=== PATIENT | female | born 2000 | race Caucasian/White ===

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

== ENCOUNTER 2023-04-06 18:05 | Emergency (ER) | payer BC, SELFPAY ==
--- NOTE | 2023-04-06 18:06 | ED.URI ---
HPI - URI/Sore Throat General Chief Complaint: Upper Respiratory Infection Stated Complaint: Bilateral Ear Irritation,Sore Throat,Headache Time Seen by Provider: 04/06/23 18:06 Source: patient Mode of arrival: ambulatory Limitations: no limitations History of Present Illness HPI Narrative: Rafaela is a 22-year-old female patient presenting to the clinic today with complaints of bilateral ear pain, sore throat, and headache x3 days. She reports no known fever or chills but she has had some body aches. No known exposure to anyone with COVID, flu, or strep. She has recently got back from traveling to [place] with her family. MD elicited complaint: sore throat and other (Ear pain, headache) Related Data Home Medications Medication Instructions Recorded Confirmed levonorgestrel 21 mcg/24 hours (8 See Rx Instructions .Route .COMPLEX 09/03/21 04/06/23 yrs) 52 mg intrauterine device (Mirena) duloxetine 60 mg capsule,delayed 60 mg PO DAILY 04/06/23 04/06/23 release hydroxyzine HCl 50 mg tablet 50 mg PO PRN PRN Anxiety 04/06/23 04/06/23 Allergies Allergy/AdvReac Type Severity Reaction Status Date / Time No Known Drug Allergies Allergy Unknown Other Verified 04/06/23 18:06 Review of Systems Review of Systems: Pertinent positives per HPI. Patient denies any fever, chills, rash, headache, visual changes, dizziness, cough, shortness of breath, chest pain, palpitations, nausea, vomiting, diarrhea, constipation, abdominal pain, or any urinary issues. [facility] Past Medical History Medical History Autoimmune disease Patient denies significant medical history Social History Social History Smoking status: Former smoker Gender identity (if verbalized by the patient): Female Comments At the time of my signature, I reviewed and agree with the nursing past medical, surgical, social, and family history. There is no relevant family history pertinent to the patient complaint. Exam Narrative: General: Well-developed, well nourished, in no apparent distress Head: Normocephalic, atraumatic Eyes: Pupils equally round and reactive to light bilaterally, EOM intact, sclera and conjunctive clear, no discharge, lids normal Ears: TMs intact and congested mild bulging, ear canals clear, no drainage, grossly hearing normal. Nose: Nares patent, clear nasal discharge, moderate inflammation, no sinus tenderness. Mouth: Oral pharynx mildly red without lesions or masses, good dentition, MMM. PND Neck: Supple, trachea midline, no enlargement of anterior or posterior cervical nodes, no thyroid masses or goiter palpable. Cardio: Regular rate and rhythm, s1 and s2 normal, no murmur appreciated. Resp: Clear to auscultation bilaterally, no rhonchi, rales, wheezing or rubs Course Course Emergency Course: Portions of this record may have been created with voice recognition software. Level of Care: Express Care Visit Vital Signs Vital signs: Vital signs reviewed MDM - URI/Sore Throat MDM Narrative Medical decision making narrative: At the time of visit patient is resting comfortably on the exam table. Strep, COVID, influenza testing was performed and all negative in the clinic today. I suspect patient has URI/pharyngitis/postnasal drip/eustachian tube dysfunction. Will send in prescription for some prednisone. Supportive measures were discussed with the patient she voiced understanding discharge instructions agrees to treatment plan. Differential Diagnosis Differential diagnosis: Likely upper respiratory infection, otitis media, sinusitis, viral infection, bronchitis, influenza, pharyngitis and other (COVID) Discharge Plan Discharge Clinical Impression: Post-nasal drip, Acute dysfunction of both eustachian tubes Upper respiratory infection Qualifiers: URI type: unspecified URI Qualified Code(s): J0
[2023-04-06 18:12] VITALS: BP 127/71; PULSE 86; RESP 16; TEMP 36.7; O2SAT 100
== END 2023-04-06 18:35 | disposition home or self-care (01) ==
PROVIDERS: Emergency Provider Nurse Practitioner Family; PCP Nurse Practitioner Family
DX: R09.82 Postnasal drip (principal); H69.93 Unspecified Eustachian tube disorder, bilateral; J06.9 Acute upper respiratory infection, unspecified; J02.9 Acute pharyngitis, unspecified; Z20.822 Contact with and (suspected) exposure to COVID-19; M35.9 Systemic involvement of connective tissue, unspecified; Z87.891 Personal history of nicotine dependence
CPT/HCPCS: 87081; 87426; 87804; 87880; 99213; C9803; G0463

== ENCOUNTER 2023-05-23 15:07 | Emergency (ER) | payer BC, SELFPAY ==
[2023-05-23 15:13] VITALS: BP 115/78; PULSE 102; RESP 20; TEMP 36.6; O2SAT 100
--- NOTE | 2023-05-23 15:20 | ED.URI ---
HPI - URI/Sore Throat General Chief Complaint: Upper Respiratory Infection Stated Complaint: SORE THROAT/DRAINAGE/COUGH Time Seen by Provider: 05/23/23 15:24 Source: patient, RN notes reviewed and old records reviewed Mode of arrival: ambulatory Limitations: no limitations History of Present Illness HPI Narrative: 22 year old female who presents to [facility] care with complaints of sore throat, nasal congestion and drainage, and cough at night for the past 3 days. Patient reports that throat is sore especially in the mornings from her sinus drainage. Patient reports that her lower back hurts today. She states that she checked herself for COVID yesterday and it was negative then found out it was an test. Patient reports that she has positive SUNNY that she sees Detailer for and they are concerned of possible autoimmune disorder. Patient reports that she has not had any fevers. MD elicited complaint: cough, sore throat, rhinorrhea and nasal congestion Pertinent past history: other (SUNNY positive being checked for autoimmune disease) Onset (ago): day(s) (3) Able to tolerate fluids by mouth: Yes Treatments prior to arrival: other (DayQuil and NyQuil) Related Data Home Medications Medication Instructions Recorded Confirmed levonorgestrel 21 mcg/24 hours (8 See Rx Instructions .Route .COMPLEX 09/03/21 05/23/23 yrs) 52 mg intrauterine device (Mirena) duloxetine 60 mg capsule,delayed 60 mg PO DAILY 04/06/23 05/23/23 release hydroxyzine HCl 50 mg tablet 50 mg PO PRN PRN Anxiety 04/06/23 05/23/23 Allergies Allergy/AdvReac Type Severity Reaction Status Date / Time No Known Drug Allergies Allergy Unknown Other Verified 05/23/23 15:15 Review of Systems Review of Systems: CONSTITUTIONAL: Reports malaise, no chills, sweats, or fever. EYES: Denies visual changes, redness, or discharge. ENT: Reports rhinorrhea, congestion, sinus pain,no otalgia positive for sore throat. CARDIOVASCULAR: Denies chest pain, palpitations, or edema. RESPIRATORY: Reports cough.? Denies dyspnea. GASTROINTESTINAL: Denies abdominal pain, nausea, vomiting, diarrhea SKIN: Denies rash or itching. MUSCULOSKELETAL: Reports back myalgia. NEUROLOGIC: Denies headache. All systems reviewed & are unremarkable except as noted in HPI and below PMFSH Past Medical History Medical History Autoimmune disease Positive SUNNY Patient denies significant medical history Surgical History Surgical History (Updated 05/25/23 @ 21:58 by Melody Edwards NP) History of tonsillectomy Social History Social History Smoking status: Former smoker Gender identity (if verbalized by the patient): Female Comments At time of signature, agree with nursing past medical, surgical, social and family history. There is no relevant family history pertinent to the presenting complaint Exam Narrative: GENERAL: Well-appearing, well-nourished, and in no acute distress. HEAD: Normocephalic EYES: PERRLA, conjunctivae clear ENT: Nares clear, turbinates edematous and erythematous, clear discharge. Mucous membranes moist. TM pearly beltran with dull light reflex bilaterally; no tragal tenderness. Oropharynx erythematous without lesions. Tonsils not present and without exudate, no drooling, no hoarseness, no trismus, uvula midline.post nasal drainage NECK: Supple. No lymphadenopathy CHEST: Clear to auscultation, breath sounds equal. No wheezing, rhonchi, rales, or stridor. No respiratory distress, speaks in full sentences.cough SAO2 100% on room air HEART: Regular rate and rhythm. No murmur heard. SKIN: Warm, dry, no rash. NEURO: Alert and oriented x3. PSYCH: Normal mood and affect Course Course Emergency Course: Patient is aware of diagnosis, understands and agrees to treatment plan.? Anticipatory guidance given.? Patient agr
== END 2023-05-23 16:05 | disposition home or self-care (01) ==
PROVIDERS: Emergency Provider Registered Nurse; PCP Nurse Practitioner Family
DX: J06.9 Acute upper respiratory infection, unspecified (principal); Z79.899 Other long term (current) drug therapy; Z87.891 Personal history of nicotine dependence; Z20.822 Contact with and (suspected) exposure to COVID-19
CPT/HCPCS: 87426; 99213; C9803; G0463

== ENCOUNTER 2024-11-02 14:36 | Outpatient (CLI) | payer BC, SELFPAY ==
[2024-11-02 15:20] LABS: Hematocrit 37.4 % (37.0-47.0); Hemoglobin 12.7 g/dL (12.0-15.0); Mean Corpuscular Hemoglobin 29.8 pg (26-34); Mean Corpuscular Volume 87.8 fl (80-100); Mean Platelet Volume 8.9 fl (7.4-10.4); Platelet Count Result 338 k/mm3 (150-375); Red Blood Count 4.26 M/mm3 (4.2-5.4); Red Cell Distribution Width 12.2 % (11.5-14.5)
[2024-11-02 15:32] LABS: Alanine Aminotransferase 15 U/L (6-35); Albumin Level 4.6 g/dL (3.5-5.1); Alkaline Phosphatase 108 U/L (38-126); Anion Gap 11 mmol/L (4-12); Aspartate Amino Transferase 22 U/L (14-36); Bilirubin,Total 0.4 mg/dL (0.2-1.3); Blood Urea Nitrogen 12 mg/dL (7-17); Calcium 9.5 mg/dL (8.4-10.2); Carbon Dioxide 28 mmol/L (22-30); Chloride 99 mmol/L (98-107); Cholesterol 208 mg/dL (0-200); Estimated Glomerular Filt Rate > 60; Glucose 90 mg/dL (65-110); HDL Direct 39 mg/dL; Potassium 3.9 mmol/L (3.4-5.0); Sodium 138 mmol/L (137-145); Triglycerides 305 mg/dL (<150)
[2024-11-02 15:43] LABS: LDL Cholesterol Direct 104 mg/dL
[2024-11-02 15:44] LABS: Iron 109 ug/dL (37-170)
[2024-11-02 15:48] LABS: Hemoglobin A1C 5.1 % (<5.7)
[2024-11-02 15:57] LABS: Percent Iron Saturation 29 % (20-50)
[2024-11-02 16:01] LABS: Vitamin D 25 Hydroxy 19.3 ng/mL
[2024-11-02 16:38] LABS: Folic Acid 5.6 ng/mL (2.76->20)
--- OUTSIDE RECORDS SUMMARY | 2024-11-02 17:03 | XMS_ITS | Data Portability ---
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 Plan of Treatment Reminders Order Date Submit Date Provider Last Modified By Organization Details Last Modified Time Details Appointments None recorded. Lab None recorded. Referral None recorded. Procedures None recorded. Surgeries None recorded. Imaging None recorded. Medication Orders hydroxyzine HCl 50 mg tablet 2022 023 [facility]/Pharmacy #[id number], [address] [place], [address], 12:49:32 duloxetine 60 mg capsule,del ayed release 2022 023 [facility]/Pharmacy #[id number], [address] [place], [address], 12:49:30 Patient TargetsNo targets recorded. Patient Instructions Encounter Date Encounter Id Patient Instructions Last Modified By Organization Details Last Modified Time 01/14/2023 [id number] 3-4 mo fu anxiety, ptsd, depression, acne, etc. Not available 01/14/2023 12:53:29 05/06/2023 [id number] FU in 6 mo for anxiety/depressio n, acne Not available 05/06/2023 12:53:00 Reason for Referral None Reported. Results Created Date Observation Date Name Description Value Unit Range Abnormal Flag Note LastModifiedBy Organization Detail LastModifiedTime Result Notes None recorded. Problems Name Problem SNOMED Code Status Onset Date Resolution Date Notes Provider Name and Address Organization Details Recorded Time Depressive disorder 43985053 Active 2021 Not Available [facility] 3 17:44:01 Posttraumatic stress disorder 88727993 Active 2021 Not Available [facility] 3 17:44:01 Anxiety 30127285 Active 2022 Machelle Hidalgo NP [address] [facility], [facility] [address], [place], [address] , [employer] 3 12:48:46 Acne 27779904 Active 2022 Machelle Hidalgo NP [address] [facility], [address], [place], [address] , [employer] 3 12:57:16 Problem Notes None recorded. Procedures Surgical History Date Name Laterality Status Provider Name and Address Organization Details Recorded Time biopsy of lymph node completed Not Available [facility] 11/06/2022 17:43:02 EGD completed Not Available [facility] 09/2022 17:43:02 nasal cautery completed Not Available [facility] 11/06/2022 17:43:02 tonsillectomy and adenoidectomy completed Not Available [facility] 11/06/2022 17:43:02 Imaging Results None recorded. Procedure Notes None recorded. Medical Equipment None Reported. Allergies No known drug allergies Medications Name Sig Start Date Stop Date Status Note LastModified by Organization Details LastModified Time buspirone 5 mg tablet TAKE 1 TABLET BY MOUTH TWICE A DAY active Not Available Not Available No t Available azithromyci n 250 mg tablet 01/23 completed Not Available Not Available Not Available fluconazole 150 mg tablet 01/23 completed Not Available Not Available Not Available tretinoin 0.025 % topical cream APPLY TOPICALLY TO THE AFFECTED AREA EVERY DAY AT BEDTIME active Not Available Not Available No t Available sucralfate 1 gram tablet TAKE 1 TABLET BY MOUTH FOUR TIMES DAILY 12/17 completed Not Available Not Available Not Available promethazin e 12.5 mg tablet 12/17 completed Not Available Not Available Not Available sumatriptan 25 mg tablet 01/19 completed Not Available Not Available Not Available ondansetron HCl 4 mg tablet 01/19 completed Not Available Not Available Not Available prednisone 20 mg tablet TAKE 2 TABLETS BY MOUTH EVERY DAY FOR 5 DAYS 05/06 completed Not Available Not Available Not Available doxycycline hyclate 50 mg capsule Take 1 capsule every 12 hours by oral route. active Not Available Not Available No t Available clindamycin HCl 150 mg capsule 08/21 completed Not Available Not Available Not Available penicillin V potassium 500 mg tablet 12/17 completed Not Available Not Available Not Available hydroxyzine HCl 50 mg tablet TAKE 1 TABLET BY MOUTH THREE TIMES A DAY NEEDED 2022 active Not Available Not Available Not Avai lable sulfamethox azole 800 mg-trimetho prim 160 mg tablet TAKE 1 TABLET TWICE A DAY FOR 5 DAYS 12/17 completed Not Available Not Available Not Available ketorolac 10 mg tablet 01/19 completed Not Available Not Available Not Available cyproheptad ine 4 mg tablet 12/17 completed Not Available Not Available Not Available bupropion HCl 100 mg tablet Take 1 tablet every day by oral route. active Not Available Not Available No t Available dicyclomine 20 mg tablet TAKE 1 TABLET BY MOUTH THREE TIMES DAILY NEEDED FOR ABDOMINAL CRAMPS 12/17 completed Not Available Not Available Not Available phenazopyri dine 100 mg tablet 01/19 completed Not Available Not Available Not Available doxycycline monohydrate 100 mg capsule 01/23 completed Not Available Not Available Not Available erythromyci n 5 mg/gram (0.5 %) eye ointment APPLY 1/2 INCH STRIP TO THE RIGHT EYE THREE TIMES DAILY FOR 5 DAYS 12/17 completed Not Available Not Available Not Available buspirone 10 mg tablet TAKE 1 TABLET BY MOUTH TWICE A DAY active Not Available Not Available No t Available sertraline 25 mg tablet 12/17 completed Not Available Not Available Not Available mupirocin 2 % topical ointment APPLY TO AFFECTED AREA 3 TIMES A DAY 12/17 completed Not Available Not Available Not Available gabapentin 100 mg capsule 12/17 completed Not Available Not Available Not Available benzoyl peroxide 5 % topical cleanser APPLY SPARINGLY TO AFFECTED AREA EVERY DAY active Not Available Not Available No t Available naproxen 500 mg tablet 12/17 completed Not Available Not Available Not Available oxycodone 5 mg tablet 12/17 completed Not Available Not Available Not Available escitalopra m 10 mg tablet PLEASE SEE ATTACHED FOR DETAILED DIRECTION S 12/17 completed Not Available Not Available Not Available escitalopra m 20 mg tablet TAKE 1 TABLET BY MOUTH EVERY DAY active Not Available Not Available No t Available Mononessa (28) 0.25 mg-35 mcg tablet 01/19 completed Not Available Not Available Not Available nitrofurant oin monohydrate /macrocryst als 100 mg capsule TAKE 1 CAPSULE BY MOUTH EVERY 12 HOURS FOR 7 DAYS 12/17 completed Not Available Not Available Not Available duloxetine 30 mg capsule,del ayed release TAKE 1 CAPSULE BY MOUTH EVERY DAY 01/14 completed Not Available Not Available Not Available duloxetine 60 mg capsule,del ayed release TAKE 1 CAPSULE BY MOUTH EVERY DAY active Not Available Not Available No t Available ID NOW COVID-19 Test Kit TEST DIRECTED 12/17 completed Not Available Not Available Not Available Vitals Date Recorded Body mass index (BMI) Body height Oxygen saturation Oxygen saturation in Arterial blood by Pulse oximetry Heart rate Respiratory rate Body temperature Body weight Systolic blood pressure Diastolic blood pressure Provider Name and Address Organization Details Last Updated DateTime 2 24.1 kg/m2 160.02 cm 98 % 98 % 90 /min 18 /min 98.4 [degF] 43210.5 6 g 102 mm[Hg] 70 mm[Hg] Not Available [facility] 3 17:43:36 Date Recorded Body mass index (BMI) Body height Oxygen saturation Oxygen saturation in Arterial blood by Pulse oximetry Heart rate Respiratory rate Body temperature Body weight Systolic blood pressure Diastolic blood pressure Provider Name and Address Organization Details Last Updated DateTime 3 25.6 kg/m2 160.02 cm 98 % 98 % 77 /min 16 /min 99.1 [degF] 97765.4 6 g 104 mm[Hg] 62 mm[Hg] Not Available [facility] 3 17:43:36 Date Recorded Body mass index (BMI) Body height Oxygen saturation Oxygen saturation in Arterial blood by Pulse oximetry Heart rate Respiratory rate Body temperature Body weight Systolic blood pressure Diastolic blood pressure Provider Name and Address Organization Details Last Updated DateTime 3 26.6 kg/m2 160.02 cm 98 % 98 % 59 /min 16 /min 98.3 [degF] 52652.2 1 g 106 mm[Hg] 70 mm[Hg] Not Available [facility] 3 17:43:36 Date Recorded Body height Body mass index (BMI) Percentile per age and sex Body mass index (BMI) Body weight Body temperature Heart rate Respiratory rate Oxygen saturation Oxygen saturation in Arterial blood by Pulse oximetry Pain severity - 0-10 verbal numeric rating [Score] - Reported Systolic blood pressure Diastolic blood pressure Provider Name and Address Organization Details Last Updated DateTime 3 160.02 cm 83 % 26.2 kg/m2 80158.3 7 g 98.4 [degF] 84 /min 16 /min 97 % 97 % 0 108 mm[Hg] 74 mm[Hg] Machelle Greenwood RN [facility] 3 12:31:58 Date Recorded Body height Body mass index (BMI) Body mass index (BMI) Percentile per age and sex Body weight Body temperature Heart rate Respiratory rate Oxygen saturation Oxygen saturation in Arterial blood by Pulse oximetry Pain severity - 0-10 verbal numeric rating [Score] - Reported Systolic blood pressure Diastolic blood pressure Provider Name and Address Organization Details Last Updated DateTime 3 160.02 cm 26.4 kg/m2 83 % 80896.0 1 g 96.3 [degF] 80 /min 16 /min 98 % 98 % 0 130 mm[Hg] 82 mm[Hg] Machelle Greenwood RN [facility] 3 12:33:59 Social History Question Answer Notes LastModified by Organization Details LastModified Time Tobacco Smoking Status Never Smoker Not Available [facility] 11/06/2022 17:42:58 Do You Have An Advance Directive? No Information not available 01/14/2023 What Is Your Level Of Alcohol Consumption? None MIGRATION.0301 [id number] Information not available 11/06/2022 Do You Wear A Helmet When Biking? Yes MIGRATION.030 137382 Information not available 11/06/2022 Is Blood Transfusion Acceptable In An Emergency? Yes Information not available 01/14/2023 What Is Your Level Of Caffeine Consumption? Moderate [id number] Information not available 11/06/2022 What Is Your Code Status? Full Code Information not available 01/14/2023 In The 14 Days Before Symptom Onset, Have You Had Close Contact With A Laboratory-confi rmed COVID-19 While That Case Was Ill? No MIGRATION.0301 [id number] Information not available 11/06/2022 In The 14 Days Before Symptom Onset, Have You Had Close Contact With A Person Who Is Under Investigation For COVID-19 While That Person Was Ill? No MIGRATION.0301 [id number] Information not available 11/06/2022 Are You Currently Employed? Yes Information not available 01/14/2023 What Type Of Diet Are You Following? REGULAR MIGRATION.0301 [id number] Information not available 11/06/2022 Which Illicit Or Recreational Drugs Have You Used? Marijiuana MIGRATION.0301 [id number] Information not available 11/06/2022 What Is The Highest Grade Or Level Of School You Have Completed Or The Highest Degree You Have Received? [id number] MIGRATION.0301 [id number] Information not available 11/06/2022 What Is Your Occupation? [employer] Information not available 01/14/2023 Have There Been Any Changes To Your Family Or Social Situation? No MIGRATION.0301 [id number] Information not available 11/06/2022 Do You Use Insect Repellent Routinely? Yes MIGRATION.0301 [id number] Information not available 11/06/2022 Where Do You Live? [place]LevelHouse MIGRATION.0301 [id number] Information not available 11/06/2022 Do You Have A Medical Power Of Roustabout Supervisor? No Information not available 01/14/2023 Do You Have Any Pets? Yes Information not available 01/14/2023 What Is Your Relationship Status? Single MIGRATION.0301 [id number] Information not available 11/06/2022 Do You Use Your Seat Belt Or Car Seat Routinely? Yes MIGRATION.0301 [id number] Information not available 11/06/2022 Do You Have Smoke And Carbon Monoxide Detectors In Your Home? Yes Information not available 01/14/2023 Are You Passively Exposed To Smoke? No MIGRATION.0301 [id number] Information not available 11/06/2022 Are There Any Smokers In Your House? No MIGRATION.0301 260430 Information not available 11/06/2022 Do You Participate In Social Media? Yes MIGRATION.0301 438006 Information not available 11/06/2022 Do You Feel Stressed (tense, Restless, Nervous, Or Anxious, Or Unable To Sleep At Night)? QV3568-8 MIGRATION.030 045861 Information not available 11/06/2022 Do You Use Any Illicit Or Recreational Drugs? Yes MIGRATION.0301 032404 Information not available 11/06/2022 Do You Use Sunscreen Routinely? Yes MIGRATION.030 761830 Information not available 11/06/2022 Have You Recently Traveled Abroad? No MIGRATION.030 416095 Information not available 11/06/2022 Are You Currently In School? Yes [employer] Information not available 01/14/2023 Do You Have Any Dietary Restrictions? No MIGRATION.030 455408 Information not available 11/06/2022 Sex: Female Functional Status Question Answer Note LastModified by Organizat ion Details LastModified Time What is your exercise level? Moderate MIGRATION.[id number] 6 Information not available 11/06/2022 Mental Status None recorded. Family History Relationship Description Onset Age of this Age Resolved Age Notes LastModified by Organization Details LastModified Time Mother Nodule of liver MIGRATION.942 [id number] Not available 11/06/2022 17:43:03 Mother Malignant neoplasm of skin MIGRATION.801 [id number] Not available 11/06/2022 17:43:03 Father Hypothyroidi sm MIGRATION.069 [id number] Not available 11/06/2022 17:43:03 Father Gout MIGRATION.372 [id number] Not available 11/06/2022 17:43:03 Father Hyperkeratos is lenticularis perstans MIGRATION.184 [id number] Not available 11/06/2022 17:43:03 Maternal Grandmother Diabetes mellitus MIGRATION.967 [id number] Not available 11/06/2022 17:43:03 Maternal Grandmother Hypertensive disorder MIGRATION.083 [id number] Not available 11/06/2022 17:43:03 Maternal Grandmother Hyperkeratos is lenticularis perstans MIGRATION.725 [id number] Not available 11/06/2022 17:43:03 Maternal Grandfather Coronary arterioscler osis MIGRATION.979 1588186 Not available 11/06/2022 17:43:03 Maternal Grandfather Hypertensive disorder MIGRATION.179 7440215 Not available 11/06/2022 17:43:03 Maternal Grandfather Basal cell carcinoma of skin MIGRATION.636 6965792 Not available 11/06/2022 17:43:04 Paternal Grandfather Hyperkeratos is lenticularis perstans MIGRATION.437 [id number] Not available 11/06/2022 17:43:04 Paternal Grandfather Hypothyroidi sm MIGRATION.884 [id number] Not available 11/06/2022 17:43:04 Paternal Grandfather Diabetes mellitus MIGRATION.661 4571505 Not available 11/06/2022 17:43:04 Paternal Grandfather Coronary arterioscler osis MIGRATION.286 [id number] Not available 11/06/2022 17:43:04 Paternal Grandfather Malignant tumor of colon MIGRATION.099 [id number] Not available 11/06/2022 17:43:04 Paternal Grandmother Hyperthyroid ism MIGRATION.318 [id number] Not available 11/06/2022 17:43:04 Paternal Grandmother Hypothyroidi sm MIGRATION.768 [id number] Not available 11/06/2022 17:43:04 Medical History Condition Response BLINDNESS N RHEUMATIC FEVER N KIDNEY STONES N BLADDER PROBLEMS N MRSA N OTHER # 1 N POLIO N LUNG DISEASE/DISORDER N HISTORY OF DRUG ABUSE N COPD N RADIATION / CHEMOTHERAPY N Other # 2 N BLOOD DISEASES N SURGERY N EAR OR HEARING PROBLEMS N MUMPS N SHINGLES N BOWEL PROBLEMS N FEMALE PROBLEMS / INFECTIONS N DEPRESSION (INCLUDING POST ) Y STROKE/TIA N THYROID DISEASE N ULCERS N BENIGN PROSTATIC HYPERPLASIA N MEASLES N CERVICALGIA N TB SKIN TEST N HYPOTENSION N MYOCARDIAL INFARCTION N OBESITY N PARAPELGIA N GERD/NAUSEA N ANEURYSM N URINARY/BLADDER/KIDNEY PROBLEMS N CORONARY ARTERY DISEASE (CAD) N MENIERE'S DISEASE N ADDICTION CONCERNS N ENDOMETRIOSIS N USE OF BLOOD THINNERS N SKIN PROBLEMS N EMPHYSEMA N GASTROINTESTINAL DISORDER N MUSCLE,JOINT OR BONE PROBLEMS N GASTROINTESTINAL BLEEDING N BLOOD CLOTS N ASTHMA N CATARACTS N ERECTILE DYSFUNCTION N GI PROBLEMS N CHF N Low Testosterone N NEUROPATHY N INFERTILITY N AIDS/HIV N FRACTURES N CHEMOTHERAPY / RADIATION N VISION/EYE PROBLEMS N LIVER DISEASE N MALE HYPOGONADISM N HYPERTENSION N TOURETTE'S N ANXIETY DISORDER Y BLOOD TRANSFUSION N ANEMIA/BLOOD DISORDER N CHRONIC EAR INFECTIONS N BRONCHITIS N TUBERCULOSIS N GLAUCOMA N FOOT PROBLEM N DIVERTICULITIS N CHICKENPOX N SLEEP APNEA N ALLERGIES/HAYFEVER N INFECTIOUS DISEASE N HEART ARRHYTHMIA N PROSTATE N INSOMNIA N HIGH CHOLESTEROL / HYPERLIPIDEMIA N HYPERTHYROIDISM N EYE PROBLEMS N EATING DISORDER N EDEMA N CHRONIC PAIN SYNDROME N CONSTIPATION N CAROTID BLOCKAGE N BACK / NECK PROBLEMS N HAVE YOU BEEN HOSPITALIZED OR SEEN IN [facility] IN THE PAST YEAR ? N ATHEROSCLEROSIS N BREAST PROBLEMS N DIALYSIS N ECZEMA N FIBROMYALGIA N OSTEOPOROSIS N ARTHRITIS N NO SIGNIFICANT PAST MEDICAL HISTORY N APPENDICITIS N DIABETES, TYPE N BAD TEETH N HEARTBURN / REFLUX N ADD/ADHD N AUTISM SPECTRUM DISORDER (ASD) N HEPATITIS / LIVER DISEASE N PULMONARY DISEASE N GOUT N SLEEP DISORDER N ALZHEIMER'S DISEASE N PAIN N HERPES N DEMENTIA N HEADACHES/MIGRAINES N SEIZURES/EPILEPSY N VASCULAR DISEASE N PACEMAKER N DIZZINESS N HEART DISEASE/HEART PROBLEMS N KIDNEY DISEASE N DEVELOPMENTAL OR BEHAVIORAL DISORDERS N MULTIPLE SCLEROSIS N SCARLET FEVER N MENTAL DISORDER/ILLNESS N CARDIAC ARRHYTHMIA N CANCER: SPECIFY N PNEUMONIA N ATRIAL FIBRILLATION N Gall Stones N PULMONARY EMBOLISM N AUTOIMMUNE DISEASE N Gynecological History Statement/Question Response How many live births 0 Date of LMP Sexually Active? Y Menses Monthly N STIs/STDs N Date of Last Pap Current Control Method IUD Breast Problems no Discharge no Obstetrics History GPAL:G 0 P 0 0 0 0 Past Encounters Encounter ID Performer Location Encounter Start Date Encounter Closed Date Diagnosis/Indication Diagnosis SNOMED-CT Code Diagnosis ICD10 Code Diagnosis Note [id number] [address] [address] 12/17/2021 00:00:00 12/17/2021 14:48:[id number] [address] 01/24/2022 00:00:00 01/24/2022 16:35:[id number] [address] 03/19/2022 00:00:00 03/19/2022 14:19:[id number] [address] 08/21/2022 00:00:00 08/21/2022 12:18:[id number] [place] [address] 09/20/2022 00:00:00 09/20/2022 15:50:[id number] [address] 10/18/2022 00:00:00 10/18/2022 15:31:29 [id number] Machelle Hidalgo NP [address] [address] 01/14/2023 12:16:17 01/14/2023 12:54:37 Depressive disorder 13381930 F32.A Duloxetine 60 mg po daily. DC 30 mg. Posttrauma tic stress disorder 36494474 F43.10 Stable. Anxiety 20549884 F41.9 Hydroxyzin e 50 mg po tid prn. Acne 52905763 L70.9 doing well on benzyl peroxide cleanser. Tretinoin 0.025% nightly. [id number] Machelle Hidalgo NP [address] [address] 05/06/2023 12:14:09 05/06/2023 12:55:19 Depressive disorder 32190462 F32.A Duloxetine 60 mg po daily.Hydr oxyzine. Acne 22896615 L70.9 doing well on benzyl peroxide cleanser. Tretinoin 0.025% nightly. Health Concerns Section Related Observation LastModified by Organization Detai ls LastModified Time None Recorded Concern Status LastModified by Organization Details LastModified Time None Recorded Advance Directives Directive N: Payers Encounter Date Sequence Insurance Name Policy Number Policy Frederick Covered Member ID Frederick Member ID Guarantor Name 01/14/2023 1 [place] [id number] Glenroy Mac [id number] [place] 05/06/2023 1 [employer] [id number] Glenroy Mac [id number] [place] Mac Notes Date Note Type Note Provider Name and Address Organization Details Recorded Time 01/14/2023 text/html Here for follow up on depression, ptsd, acne. anxiety- was using hydroxyzine at night but ran out. Duloxetine 30 mg is helping, but now increase desired.PTSD- No flares.Acne- Has been doing well on benzoyl peroxide wash. Thankful getting some relief. Differin acne body scrub. Machelle Hidalgo NP [address], [facility] [address], [place], [address], [employer] 01/14/2023 12:58:17 05/06/2023 text/html Here for med check. 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 Machelle Hidalgo NP [address], [facility] [address], [place], [address], [employer] 05/06/2023 12:53:36 OBGyn Episode No OBEpisode recorded.
--- OUTSIDE RECORDS SUMMARY | 2024-11-02 17:03 | XMS_ITS | Clinical Summary ---
Author Organization [facility] Address [address] [address] Care Team Providers Care Multineedle Shirrer Name Role Phone Machelle Hidalgo Terrance [employer]-PANEL BUILDER Primary Care Provider Source Comments [facility],non-owned Affiliates and Associated Physician Practices is amultiple site organization consisting of ambulatory clinics and hospital sitesin [place], [place], [place] and [place]. This disclosure is being madepursuant to the Care Everywhere program and may not contain all information available regarding this patient. Last updated 18.[facility] Allergies No known active allergies Medications * Be aware that medications may not be up to date on this document. Alwaysverify current medications with the patient. Medication Sig Dispensed Refills Start Date End Date Status mupirocin (BACTROBAN) 2 % ointment Apply to affected area 3 times daily 22 g 10/05/2021 Active benzoyl peroxide (Benzac) 5 % wash benzoyl peroxide 5 % topical cleanser APPLY THIN LAYER TOPICALLY TO THE AFFECTED AREA EVERY DAY Active DULoxetine (Cymbalta) 30 MG capsule Take 1 (one) capsule by mouth once daily 11/13/2022 Active Active Problems Problem Noted Date Diagnosed Date Urinary frequency 08/21/2021 Urinary urgency 08/21/2021 Mild protein-calorie malnutrition 07/28/2021 Abdominal pain, periumbilical 07/21/2021 Assessment & Plan (07/27/2021 10:55 AM TANK CHARGER): Assessment: Shawnee Mosqueda is a 21 year old female with depression, anxiety, and history of +SUNNY, thyroid antibodies, 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 Work-up thus far included EGD without evidence of PUD (mild duodenitis which would not explain all of her symptoms per GI), ovarian u/s without evidence of torsion, RUQ US without evidence of biliary disease, and CT scan with left ovarian cyst but otherwise no evidence of SMA syndrome, appendicitis, or nephrolithiasis. Lipase, LFTs, and GGT normal on admission. GC/Chlamydia negative with pelvic exam without cervical motion tenderness. Overall Shawnee has shown improvement. She is now tolerating regular diet and requiring less pain medication each day. Working diagnosis at this time is post infectious duodenitis with component of functional abdominal pain. GI following and appreciate recommendations. GI recommended holding off on HIDA scan as patient is improving clinically and RUQ U/S was WNL. Patient and mother were initially hesitant of this plan, but are on board with waiting on HIDA scan now that symptoms are improving. Patient and mother in agreement with plan for discharge home with close PCP follow up. 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 Work-up thus far included EGD without evidence of PUD (mild duodenitis which would not explain her symptoms per GI), ovarian u/s without evidence of torsion, RUQ US without evidence of biliary disease, and CT scan with left ovarian cyst but otherwise no evidence of SMA syndrome, appendicitis, or nephrolithiasis. Lipase, LFTs, and GGT normal on admission. A without evidence of infection or blood. GC/Chlamydia negative with pelvic exam without cervical motion tenderness. Functional abdominal pain also a consideration. Overall downtrend of growth curve over the past two years or so which mom reports is due to acute illness associated with weight loss and then some weight gain back prior to another acute illness associated with weight loss. Previous work-up for celiac disease negative. Tryptase to evaluate for mast cell activation syndrome pending. Shawnee requires admission for pain management. Plan: - GI and rheumatology following, appreciate recommendations - Rediscussed with GI again today given negative work-up to date. Mother with specific questions regarding HIDA scan and functional gallbladder disease. - Updated rheumatology on new joint pain. - Continue diet as tolerated and mIVF - Peripheral nutrition discontinued due to adequate PO intake. - Pepcid 20 BID. - Pain management: - Gabapentin 100 TID - will trial for functional dyspepsia; amitriptyline used in the past for IBS symptoms with some relief but given she is also on lexapro, will trial gabapentin for now. - Tylenol prn for mild/moderate pain - Oxycodone PRN for moderate/severe pain. Will decrease today from 10 to 5. 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 Work-up thus far included EGD without evidence of PUD (mild duodenitis which would not explain her symptoms per GI), ovarian u/s without evidence of torsion, RUQ US without evidence of biliary disease, and CT scan with left ovarian cyst but otherwise no evidence of SMA syndrome, appendicitis, or nephrolithiasis. Lipase, LFTs, and GGT normal on admission. A without evidence of infection or blood. GC/Chlamydia negative with pelvic exam without cervical motion tenderness. Functional abdominal pain also a consideration. Overall downtrend of growth curve over the past two years or so which mom reports is due to acute illness associated with weight loss and then some weight gain back prior to another acute illness associated with weight loss. Previous work-up for celiac disease negative. Tryptase to evaluate for mast cell activation syndrome pending. Shawnee requires admission for IV hydration, pain management, and further work up for the etiology of her abdominal pain and weight loss. Plan: - GI and rheumatology following, appreciate recommendations - Rediscussed with GI again today given negative work-up to date. Mother with specific questions regarding HIDA scan and functional gallbladder disease. - Per rheumatology, who spoke with radiology, no additional abdominal imaging will be useful to evaluate for vasculitis. - Continue diet as tolerated and mIVF - Peripheral nutrition today given inability to tolerate adequate oral intake. Nutrition consulted. Plan to d/c TPN tomorrow. - D/c esomeprazole. Start pepcid 20 BID. - Pain management: - Gabapentin 100 TID - will trial for functional dyspepsia; amitriptyline used in the past for IBS symptoms with some relief but given she is also on lexapro, will trial gabapentin for now. - Tylenol prn for mild/moderate pain - Oxycodone PRN for moderate/severe pain - Bowel regimen: miralax PRN - can increase as needed for bowel movement, kimberly while receiving opioid pain medications - Adolescent medicine signed off- no indication of restrictive eating. 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 Work-up thus far included EGD without evidence of PUD (mild duodenitis which would not explain her symptoms per GI), ovarian u/s without evidence of torsion, RUQ US without evidence of biliary disease, and CT scan with left ovarian cyst but otherwise no evidence of SMA syndrome, appendicitis, or nephrolithiasis. Lipase, LFTs, and GGT normal on admission. A without evidence of infection or blood. GC/Chlamydia negative with pelvic exam without cervical motion tenderness. Overall downtrend of growth curve over the past two years or so which mom reports is due to acute illness associated with weight loss and then some weight gain back prior to another acute illness associated with weight loss. Previous work-up for celiac disease negative. Tryptase to evaluate for mast cell activation syndrome pending. Shawnee requires admission for IV hydration, pain management, and further work up for the etiology of her abdominal pain and weight loss. Plan: - GI and rheumatology following, appreciate recommendations - Plan to rediscuss with GI again tomorrow given negative work-up to date - Mother with specific questions regarding vasculitis today, rheumatology to discuss further - F/u rheum recs: tryptase pending - Continue diet as tolerated and mIVF - Start peripheral nutrition today given inability to tolerate adequat eoral intake. Nutrition consulted. - Esomeprazole 40 mg IV - Pain management: - Gabapentin 100 TID - will trial for functional dyspepsia; amitriptyline used in the past for IBS symptoms with some relief but given she is also on lexapro, will trial gabapentin for now. Consider adding H2 wilder. - Tylenol prn for mild/moderate pain - Oxycodone PRN for moderate/severe pain - Dilaudid prn for severe pain (did not feel well with morphine in ED prior to admission) - Bowel regimen: miralax PRN - can increase as needed for bowel movement, kimberly while receiving opioid pain medications - Adolescent medicine consult - EKG for occasional PVCs seen on the monitor + tachycardia with pain - VS q8h, I/Os, CR monitors, continuous pulse ox Assessment & Plan (07/23/2021 5:12 PM TANK CHARGER): Assessment: Shawnee Mosqueda is a 21 year old female with PMH of rheumatologic disorder (+SUNNY, thyroid antibodies, granulomatous lymphadenitis), depression, and anxiety that presents with 1 week history of intermittent abdominal pain localizing to periumbilical/epigastric region with associated nausea/vomiting, anorexia, and a reported 15lb weight loss. Work-up thus far included EGD without evidence of PUD (mild duodenitis which would not explain her symptoms per GI), ovarian u/s without evidence of torsion, CT scan with left ovarian cyst but otherwise no evidence of SMA syndrome, appendicitis, or stone. Lipase normal. LFTs and GGT normal. UA without evidence of infection or blood. GC/Chlamydia negative with pelvic exam without cervical motion tenderness. Overall downtrend of growth curve over the past two years or so. Previous work-up for celiac disease negative. Shawnee requires admission for IV hydration, pain management, and further work up for the etiology of her abdominal pain and weight loss. Plan: - Total abdominal ultrasound ordered, plan for tomorrow given gas in abdomen following EGD today - GI and surgery following - Continue diet as tolerated and mIVF - Consider peripheral nutrition tomorrow if still unable to tolerate oral intake - Esomeprazole to 40 mg IV - Pain management: - Tylenol prn for mild/moderate pain - Dilaudid prn for severe pain - Now the EGD without evidence of PUD can consider spot doses of toradol to avoid opioids, would like to deescalate pain regimen, but her pain continues to be reportedly severe - will need to continually reevaluate what we are able to do - rheumatology consulted - Will need a bowel regimen once able to take PO - Will consider adolescent medicine consult - VS q8h, I/Os, CR monitors, continuous pulse ox Assessment & Plan (07/22/2021 3:21 PM TANK CHARGER): Assessment: Shawnee Mosqueda is a 21 year old female with PMH of rheumatologic disorder (+SUNNY, thyroid antibodies, granulomatous lymphadenitis), depression, and anxiety that presents with 1 week history of intermittent abdominal pain localizing to periumbilical/epigastric region. Has associated nausea, vomiting, decreased PO, and ~15 lb weight loss over past week per patient. History of GI evaluation with normal EGD and US in 2018. Seen at [facility] one day prior and had CT scan, results available in paper chart. Differential at this time is broad. Most likely PUD or biliary tree/gallbladder involvement given the worsening of pain with food. Also consider renal stone, STI, gastritis, IBD, IBS, Crohn's disease, and functional abdominal pain. Less likely ovarian etiology (ectopic , torsion, cyst), IUD displacement, UTI. Overall, CMP and CBC reassuring, though Shawnee appears dehydrated. U/A not concerning for UTI or renal stones, but demonstrates evidence of dehydration with 2+ ketones. GC/Chlamydia and UPT negative. Overall trend of growth curve concerning for weight loss (malabsorptive vs restrictive eating vs malignancy). Shawnee requires admission for IV hydration, pain management, and further work up for the etiology of her abdominal pain and weight loss. Plan: - Total abdominal ultrasound ordered - GI consulted - Upper GI scope tomorrow per GI - NPO for U/S today, NPO at midnight tonight for upper scope tomorrow - mIVF D5NS 100 ml/hr + bolus - Esomeprazole 20 mg IV - Pain management: - D/c Toradol - Tylenol prn for mild/moderate pain - Dilaudid prn for severe pain - Consider adolescent medicine and rheumatology consults - VS q8h, I/Os, CR monitors, continuous pulse ox Assessment & Plan (07/22/2021 1:19 AM TANK CHARGER): Assessment: Shawnee Mosqueda is a 21 year old female with PMH of rheumatologic disorder (+SUNNY, thyroid antibodies, granulomatous lymphadenitis), depression, and anxiety that presents with 1 week history of intermittent abdominal pain localizing to periumbilical/epigastric region. Has associated nausea, vomiting, decreased PO, and ~15 lb weight loss over past three months. History of GI evaluation with normal EGD and US in 2018. Seen at [facility] one day prior and had CT scan but results not available in EMR. Differential at this time is broad. Includes biliary tree/gallbladder involvement, ovarian etiology (ectopic , torsion, cyst), IUD displacement, UTI, renal stone, STI, gastritis, IBD, IBS, Crohn's disease, peptic ulcer disease, and functional abdominal pain. Overall, CMP and CBC reassuring, though Shawnee appears dehydrated. U/A not concerning for UTI or renal stones, but demonstrates evidence of dehydration with 2+ ketones. GC/Chlamydia pending. Overall trend of growth curve concerning for weight loss (malabsorptive vs restrictive eating vs malignancy). Shawnee requires admission for IV hydration, pain management, and further work up for the etiology of her abdominal pain and weight loss. Plan: - Admit to General Medicine, [place] team Dr. 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 Plan: -see plan for fever Assessment & Plan (08/01/2019 9:05 AM TANK CHARGER): Assessment: Janice Mosqudea is a 19 year old F admitted for fever is currently undergoing a workup for Castleman's vs Kikuchis vs malignancy. Plan: -see plan for fever -biopsy FridayAug 02. Discharge after when stable. Assessment & Plan (07/31/2019 10:24 AM TANK CHARGER): Assessment: Janice Mosqueda is a 19 year old F admitted for fever is currently undergoing a workup for Castleman's vs Kikuchis vs malignancy. Plan: -see plan for fever Assessment & Plan (07/30/2019 11:46 AM TANK CHARGER): Assessment: Janice Mosqueda is a 19 year old F admitted for fever is currently undergoing a workup for Castleman's vs Kikuchis vs malignancy. Plan: -see plan for fever Irregular periods 07/14/2018 Weight loss 07/07/2018 Assessment & Plan (07/24/2021 5:05 PM TANK CHARGER): Assessment: Shawnee is a 21 yo with hx of anxiety/depression and a ?rheumatologic disorder here for severe episodes of abdominal pain with associated nausea/vomiting and 15 pound weight loss. Adolescent medicine was consulted to assess for potential eating disorder. Patient and her mother are adamant that she does not have an eating disorder. Her history is not consistent with or concerning for anorexia nervosa or bulimia nervosa at this time. Discussed that if all other medical diagnoses are ruled out and she continues to lose weight and is unable to maintain adequate nutrition by mouth, then her restrictive eating and weight loss 2/2 abdominal pain could meet criteria for ARFID (avoidant restrictive food intake disorder). At this time given that she is requiring a pain medication regimen for her abdominal pain, it would not be appropriate to start the refeeding protocol. She is also 21 years old and would have to consent and at this time she is fully against the refeeding protocol. Provided educational materials and offered to revisit if they would like to discuss the above further in the future. Plan: - Provided educational material about ARFID from [employer] ([email or web address].org) - Provided copy of refeeding protocol and explained that it would not be appropriate to start at this time given that she is requiring strong pain medications for abdominal pain episodes, but in the future at some point if she still struggling to get back to regular meals to stay nourished, we could explore it at that time. Shawnee aware that since she is over 18 she would need to consent and at this time reports she has no plans to do the protocol at any time. - Encouraged to continue regular counseling and compliance with her Lexapro - Adolescent medicine will sign off at this time. Migraine 12/11/2010 SUNNY positive Resolved Problems Problem Noted Date Diagnosed Date Resolved Date Fever 12/17/2022 12/31/2022 Fever 01/01/2022 01/15/2022 Fever 08/21/2021 09/04/2021 Dehydration 07/21/2021 08/04/2021 Fever 04/17/2021 05/01/2021 Fever 01/16/2021 01/30/2021 Fever 08/29/2020 09/12/2020 Rash 08/29/2020 09/26/2020 Fever 02/28/2020 03/13/2020 Rash 02/28/2020 03/27/2020 Fever 10/27/2019 11/10/2019 Rash 10/27/2019 11/24/2019 Arthralgia 09/09/2019 11/30/2020 High risk medications (not a nticoagulants) long-term use 09/09/2019 11/30/2020 Fever 09/09/2019 09/23/2019 Fever 08/18/2019 09/01/2019 Rash 08/18/2019 09/15/2019 Fever 07/27/2019 08/11/2019 Assessment & Plan (08/02/2019 6:27 PM TANK CHARGER): Assessment: Shawnee Mosqueda is a 19 year old female with persistent fevers and headaches, erythema nodosum and elevated Mycoplasma titers. At this time there is some concern for infectious process vs autoimmune process. Infectious workup has been negative so far. Rheum and ID consulted and following. Differentials include Still's disease vs Castleman's vs Kikuchis vs malignancy. Lymph node biopsy performed today. Plan: - Admitted to Pediatrics, Dr. Figueroa - f/u pathology report from lymph node biopsy - Continue Doxycycline for Mycoplasma treatment. Will need 7 days total of treatment - ID and Rheum following - Diet Regular - Tylenol/Motrin PRN for fever and pain - VS q8H - Is and Os - Neuro checks q4 - Blood culture for fever spikes greater then 100.4 Assessment & Plan (08/01/2019 9:04 AM TANK CHARGER): Assessment: Shawnee Mosqueda is a 19 year old female with persistent fevers and headaches, erythema nodosum and elevated Mycoplasma titers. At this time there is some concern for infectious process vs autoimmune process. Infectious workup has been negative so far. Rheum and ID consulted and following. Differentials include Still's disease vs Castleman's vs Kikuchis vs malignancy.Will continue Doxycycline and close observation for changes while waiting for additional pending labs and will get a Lymph node biopsy next week per our discussion with ID and rheum Plan: - Admitted to Pediatrics, Dr. Henry Guzman - mIVF @125mL/hr - Continue Doxycycline for Mycoplasma treatment - Tylenol/Motrin PRN for fever and pain - ID and Rheum following - VS q8H - Is and Os - Neuro checks q4 - Blood culture for fever spikes greater then 101F Assessment & Plan (07/31/2019 10:24 AM TANK CHARGER): Assessment: Shawnee Mosqueda is a 19 year old female with persistent fevers and headaches, erythema nodosum and elevated Mycoplasma titers. At this time there is some concern for infectious process vs autoimmune process. Infectious workup has been negative so far. Rheum and ID consulted and following. Differentials include Still's disease vs Castleman's vs Kikuchis vs malignancy.Will continue Doxycycline and close observation for changes while waiting for additional pending labs and will get a Lymph node biopsy next week per our discussion with ID and rheum Plan: - Admitted to Pediatrics, Dr. Henry Guzman - mIVF @125mL/hr - Continue Doxycycline for Mycoplasma treatment - Tylenol/Motrin PRN for fever and pain - ID and Rheum following - VS q8H - Is and Os - Neuro checks q4 - Blood culture for fever spikes greater then 101F Assessment & Plan (07/30/2019 11:45 AM TANK CHARGER): Assessment: Shawnee Mosqueda is a 19 year old female with persistent fevers and headaches, erythema nodosum and elevated Mycoplasma titers. At this time there is some concern for infectious process vs autoimmune process. Infectious workup has been negative so far. Rheum and ID consulted and following. Differentials include Still's disease vs Castleman's vs Kikuchis vs malignancy. Infectious workup has been unremarkable so far. Ferritin and fibrinogen are elevated but non specific as they are acute phase reactants. Will continue to wait for additional pending labs and will get a Lymph node biopsy with our discussion with ID and rheum Plan: - Admitted to Pediatrics, Dr. Henry Guzman - mIVF @125mL/hr - Continue Doxycycline for Mycoplasma treatment - Tylenol/Motrin PRN for fever and pain - ID and Rheum following - VS q8H - Is and Os - Neuro checks q4 Assessment & Plan (07/27/2019 7:56 PM TANK CHARGER): Assessment: Shawnee Mosqueda is a 19 year old female who presented to the ED c/o 4 week history of fever and headaches. Pt's presentation is concerning for meningitis. CSF cell count is more consistent with viral meningitis given lymphocytic predominance. Low concern for bacterial meningitis at this time. Could also consider encephalitis however less likely given no altered mental status or behavioral changes. Pt also with reported history of erythema nodosum which could indicate underlying infection-possibly related to Mycoplasma bacteremia. Other differentials at this time include zoonotic disease vs malignancy such as lymphoma (given LN enlargement on exam and on CT neck) Plan: - Admit to Pediatrics, Dr. Figueroa - Diet Regular - mIVF @125mL/hr - Rocephin + Zithromax (empiric rocephin for bacterial meningitis, Zithromax for mycoplasma) - Tylenol/Motrin PRN for fever and pain - F/u CSF labs, urine Cx, blood Cx - Consider ASO titers, ESR, CRP - VS q8H - Is and Os - Neuro checks q4 Epigastric abdominal pain 07/07/2018 Abdominal pain, RUQ (right upper quadrant) 07/07/2018 11/30/2020 Pain of left heel 08/11/2014 02/02/2016 Nasal vestibulitis 05/29/2011 4 Epistaxis 05/01/2011 12/20/2013 Immunizations Name Administration Dates Next Due WhoWanna primary monoval ent 12+ yr 0.3mL Purple cap 05/16/2021,04/25/2021 DTaP VACCINE IM (6wk-6yrs) 08/04/2006,,2002,10/21,2002 HEP A PEDS 2 DOSE 07/30/2005,07/09/2004 HEP B VACCINE, PED/ADOL 03/24/2003,2002, HIB BOOSTER 12/27/2003, 3,2002,08/23 Human Papilloma Virus [place] valent Vaccine 01/19/2015,03/10/2014,12/20/2013 INFLUENZA VACCINE 06/19/2009, 8,06/15/2007,08/04 INFLUENZA VACCINE, QUADR. (F LUZONE; FLULAVAL; FLUARIX; AFLURIA QUADRIVALENT; 6MO+), 0.5 ML (IIV4) 07/03/2021,06/06/2020,07/12/2019,05/29 MENINGOCOCCAL CONJUGATE (MCV4P) 02/09/2019,04/10 MMR 12/22/2007,06/28/2003 PNEUMOCOCCAL CONJ, PEDS 06/28/2003,12/23,2002,08/23 POLIO IPV 08/04/2006, 4,2002,08/23 PPD 06/28/2003 TDAP (7yrs+) 12/20/2013 VARICELLA 12/22/2007,09/20/2003 Family History Medical History Relation Name Comments Other Brother CHRISTIN as Cancer - Colon Other PGGM Colon polyps Paternal Grandfather Celiac Disease Neg Hx Crohn's Disease Neg Hx Ulcerative Colitis Neg Hx Relation Name Status Comments Brother Other Paternal Grandfather Social History Tobacco Use Types Packs/Day Years Used Date Smoking Tobacco: Never Smokeless Tobacco: Never Tobacco Cessation:Counseling Given: Not Answered Alcohol Use Standard Drinks/Week Comments No 0 (1 standard drink = 0.6 oz pur e alcohol) AUDIT-C Answer Date Recorded Q1: How often do you have a drink containing alc ohol? Never 07/21/2021 Average Number of Drinks Not on file 021 Frequency of Binge Drinking Not on file 07/09 PHQ-2 Answer Date Recorded PHQ2 TOTAL SCORE 2 10/05/2021 Sex and Gender Information Value Date Recorded Sex Assigned at Not on file Gender Identity Not on file Sexual Orientation Not on file Last Filed Vital Signs Vital Sign Reading Time Taken Comments Blood Pressure 100/72 12/17/2022 2:30 PM CDT Pulse 65 10/05/2021 12:44 PM TANK CHARGER Temperature 36.9 C (98.4 F) 07/27/2021 12:30 PM TANK CHARGER Respiratory Rate 20 07/27/2021 12:30 PM TANK CHARGER Oxygen Saturation 99% 07/27/2021 12:30 PM TANK CHARGER Inhaled Oxygen Concentration 100% 07/23/2021 8 :15 AM TANK CHARGER Weight 65.5 kg (144 lb 6.4 oz) 12/17/2022 2:30 P M CDT Height 160.2 cm (5' 3.07 ) 12/17/2022 2:30 PM CD T Body Mass Index 25.52 12/17/2022 2:30 PM CDT Plan of Treatment Health Maintenance Due Date Last Done Comments PAP SMEAR 2002 MENINGOCOCCAL (Group B) VACC INE (1 of 2 - Standard) 2018 HEPATITIS C SCREENING 06/15/2020 CHLAMYDIA/GONORRHEA SCREENING 07/21/2022, 07/28/2019, 07/06/2018 DTAP/TDAP/TD VACCINES (7 - T d or Tdap) 12/21/2023 12/20/2013, 08/04/2006, 12/27/2003, Additional history exists COVID-19 VACCINE (2023-2 5 season) 2024 05/16/2021, 04/25/2021 INFLUENZA VACCINE (#1) 2024 , 06/06/2020, 07/12/2019, Additional history exists DEPRESSION SCREENING 09/08/2024 07/02/2022, 03/02/2020, 03/02/2020 ZOSTER VACCINE (1 of 2) 2052 HEPATITIS B VACCINE Completed 03/24/2003, 2002, 2002 PNEUMOCOCCAL VACCINE Completed 06/28/2003, 2002, 2002, Additional history exists HIB VACCINE Completed 12/27/2003, 12/07, 2002, Additional history exists HPV VACCINE Completed 01/19/2015, 11/2013, 12/20/2013 MENINGOCOCCAL VACCINE Completed 02/09/2019, 015 HIV SCREENING Completed 07/28/2019 Goals Goal Patient Goal Type Associated Problems Recent Progress Patient-Stated? Author Use safety retraint in car Lifestyle On track( 020 2:19 PM CDT) Sonia Purvis, ore grader Procedure Name Priority Date/Time Associated Diagnosis Comments CHLAMYDIA + GC AMPLIFIED PROBE STAT 07/21/2021 10:58 PM TANK CHARGER HIV-1 HIV-2 ANTIBODY + HIV P24 AG PANEL Routine 07/28/2019 5:51 PM TANK CHARGER from Last 3 Months or Most Recently Relevant to Health Maintenance Results * CHLAMYDIA + GC AMPLIFIED PROBE (STL) (07/21/2021 10:58 PM TANK CHARGER) Chlamydia Amplified Probe Negative Negative 07/22/2021 10:04 AM TANK CHARGER [facility] GC Amplified Probe Negative Negative 07/22/2021 10:04 AM TANK CHARGER [facility] Microbiology URINE / Unknown Collection / Unknown 07/21/2021 10:58 PM TANK CHARGER 07/22/2021 1:13 AM TANK CHARGER Narrative [facility] - 07/22/2021 10:04 AM TANK CHARGER Results based on detection/no detection of ribosomal RNA by amplified method. Radha Solorio MD LAB - MICROBIOLOGY O RDERABLES [facility] [address] [place] [address], [facility] [phone] * HIV-1 HIV-2 ANTIBODY + HIV P24 AG PANEL (07/28/2019 5:51 PM TANK CHARGER) Pathologist [facility] HIV1/2 Ab + P24 Ag Non Reactive Non Reactive 07/28/2019 7:06 PM TANK CHARGER [facility] Blood BLOOD SPECIMEN / Unknown Lab Venipuncture / Unknown 07/28/2019 5:51 PM TANK CHARGER 07/28/2019 6:22 PM TANK CHARGER Narrative [facility] - 07/28/2019 7:06 PM TANK CHARGER No Laboratory evidence of HIV infection. Navarro Dorsey MD LAB - CHEMISTRY ORDERABLES [facility] [address] [place] [place] [address] from Last 3 Months or Most Recently Relevant to Health Maintenance Advance Directives * Full Code (Latest Code Status on File) Date Activated Date Inactivated Comments 07/21/2021 11:21 PM 07/27/2021 3:06 PM * Full Code Date Activated Date Inactivated Comments 07/28/2019 1:04 AM 08/03/2019 1:24 PM Care Teams Multineedle Shirrer Relationship Specialty Start Date End Date Machelle Hidalgo, PATIENT CARE SECRETARY-PANEL BUILDER [address] [place] [id number] PCP - General Nurse Practitioner Family 01/02/22
--- OUTSIDE RECORDS SUMMARY | 2024-11-02 17:03 | XMS_ITS | Referral Summary ---
Author Organization [facility] Address [address] [place] [address] Care Team Providers Care Security Intern Name Role Phone Machelle Hidalgo Terrance LIN-WINDOW INSTALLATION SUBCONTRACTOR Primary Care Provider Source Comments [facility],non-owned Affiliates and Associated Physician Practices is amultiple site organization consisting of ambulatory clinics and hospital sitesin [place], [place], [place] and [place]. This disclosure is being madepursuant to the Care Everywhere program and may not contain all information available regarding this patient. Last updated 18.[facility] Allergies No known active allergies Medications * [...] 07/21/2021 Assessment & Plan (07/27/2021 10:55 AM DISTILLING DEPARTMENT SUPERVISOR): Assessment: Shawnee Mosqueda is a 21 year [...] today Assessment & Plan (07/26/2021 11:46 AM DISTILLING DEPARTMENT SUPERVISOR): Assessment: Shawnee Mosqueda is a 21 year [...] ox Assessment & Plan (07/25/2021 1:49 PM DISTILLING DEPARTMENT SUPERVISOR): Assessment: Shawnee Mosqueda is a 21 year [...] ox Assessment & Plan (07/24/2021 5:26 PM DISTILLING DEPARTMENT SUPERVISOR): Assessment: Shawnee Mosqueda is a 21 year [...] ox Assessment & Plan (07/23/2021 5:12 PM DISTILLING DEPARTMENT SUPERVISOR): Assessment: Shawnee Mosqueda is a 21 year [...] ox Assessment & Plan (07/22/2021 3:21 PM DISTILLING DEPARTMENT SUPERVISOR): Assessment: Shawnee Mosqueda is a 21 year [...] EGD and US in 2018. Seen at [facility] ED one day prior and had CT [...] ox Assessment & Plan (07/22/2021 1:19 AM DISTILLING DEPARTMENT SUPERVISOR): Assessment: Shawnee Mosqueda is a 21 year [...] EGD and US in 2018. Seen at [facility] ED one day prior and had CT [...] loss. Plan: - Admit to General Medicine, [place] team Dr. Stafford - Clear liquid diet - mIVF D5NS 100 ml/hr - Pain management: - Toradol 30 mg q6 3 doses - Tylenol prn for mild/moderate pain - Dilaudid prn for sever pain - Consider GI consult and abdominal ultrasound imaging in AM - Obtain CT from [facility] - Consider adolescent medicine and rheumatology consults [...] 07/28/2019 Assessment & Plan (08/02/2019 6:27 PM DISTILLING DEPARTMENT SUPERVISOR): Assessment: Janice Mosqueda is a 19 year old F admitted for fever is currently undergoing a workup for Castleman's vs Kikuchis vs malignancy. Plan: -see plan for fever Assessment & Plan (08/01/2019 9:05 AM DISTILLING DEPARTMENT SUPERVISOR): Assessment: Janice Mosqueda is a 19 year old F admitted for fever is currently undergoing a workup for Castleman's vs Kikuchis vs malignancy. Plan: -see plan for fever -biopsy FridayAug 02. Discharge after when stable. Assessment & Plan (07/31/2019 10:24 AM DISTILLING DEPARTMENT SUPERVISOR): Assessment: Janice Mosqueda is a 19 year old F admitted for fever is currently undergoing a workup for Castleman's vs Kikuchis vs malignancy. Plan: -see plan for fever Assessment & Plan (07/30/2019 11:46 AM DISTILLING DEPARTMENT SUPERVISOR): Assessment: Janice Mosqueda is a 19 year old F admitted for fever is currently undergoing a workup for Castleman's vs Kikuchis vs malignancy. Plan: -see plan for fever Irregular periods 07/14/2018 Weight loss 07/07/2018 Assessment & Plan (07/24/2021 5:05 PM DISTILLING DEPARTMENT SUPERVISOR): Assessment: Shawnee is a 21 yo with [...] 08/11/2019 Assessment & Plan (08/02/2019 6:27 PM DISTILLING DEPARTMENT SUPERVISOR): Assessment: Shawnee Mosqueda is a 19 year [...] 100.4 Assessment & Plan (08/01/2019 9:04 AM DISTILLING DEPARTMENT SUPERVISOR): Assessment: Shawnee Mosqueda is a 19 year [...] 101F Assessment & Plan (07/31/2019 10:24 AM DISTILLING DEPARTMENT SUPERVISOR): Assessment: Shawnee Mosqueda is a 19 year [...] 101F Assessment & Plan (07/30/2019 11:45 AM DISTILLING DEPARTMENT SUPERVISOR): Assessment: Shawnee Mosqueda is a 19 year [...] q4 Assessment & Plan (07/27/2019 7:56 PM DISTILLING DEPARTMENT SUPERVISOR): Assessment: Shawnee Mosqueda is a 19 year [...] 12/20/2013 Immunizations Name Administration Dates Next Due AM Technology primary monoval ent 12+ yr 0.3mL Purple [...] PPD 06/28/2003 TDAP (7yrs+) 12/20/2013 VARICELLA 12/22/2007,09/20/2003 Social History Tobacco Use Types Packs/Day Years [...] PM CDT Pulse 65 10/05/2021 12:44 PM DISTILLING DEPARTMENT SUPERVISOR Temperature 36.9 C (98.4 F) 07/27/2021 12:30 PM DISTILLING DEPARTMENT SUPERVISOR Respiratory Rate 20 07/27/2021 12:30 PM DISTILLING DEPARTMENT SUPERVISOR Oxygen Saturation 99% 07/27/2021 12:30 PM DISTILLING DEPARTMENT SUPERVISOR Inhaled Oxygen Concentration 100% 07/23/2021 8 :15 AM DISTILLING DEPARTMENT SUPERVISOR Weight 65.5 kg (144 lb 6.4 oz) 12/17/2022 2:30 P M CDT Height 160.2 cm (5' 3.07 ) 12/17/2022 2:30 PM CD T Body Mass Index 25.52 12/17/2022 2:30 PM CDT Functional Status Functional Status Response Date of Assess ment Is person deaf or have serious hearing difficult y? No 07/26/2021 Is person blind or have serious difficulty seein g? No 07/26/2021 Does person have serious dif ficulty walking/climbing stairs? No 07/26/2021 Does person have difficulty dressing/bathing? No 07/26/2021 Does person have difficulty doing errands alone? No 07/26/2021 Cognitive Status Response Date of Assessm ent Does person have difficulty concentrating/remembering/making decisions? No 07/26/2021 Plan of Treatment Not on file Goals Goal Patient Goal Type Associated Problems Recent Progress Patient-Stated? Author Use safety retraint in car Lifestyle On track( 020 2:19 PM CDT) Sonia Purvis RN Procedures Procedure Name Priority Date/Time Associated Diagnosis Comments CHLAMYDIA + GC AMPLIFIED PROBE STAT 07/21/2021 10:58 PM DISTILLING DEPARTMENT SUPERVISOR HIV-1 HIV-2 ANTIBODY + HIV P24 AG PANEL Routine 07/28/2019 5:51 PM DISTILLING DEPARTMENT SUPERVISOR from Last 3 Months or Most Recently Relevant to Health Maintenance Results * CHLAMYDIA + GC AMPLIFIED PROBE (STL) (07/21/2021 10:58 PM DISTILLING DEPARTMENT SUPERVISOR) [facility] Chlamydia Amplified Probe Negative Negative 07/22/2021 10:04 AM DISTILLING DEPARTMENT SUPERVISOR [facility] GC Amplified Probe Negative Negative 07/22/2021 10:04 AM DISTILLING DEPARTMENT SUPERVISOR [facility] Microbiology URINE / Unknown Collection / Unknown 07/21/2021 10:58 PM DISTILLING DEPARTMENT SUPERVISOR 07/22/2021 1:13 AM DISTILLING DEPARTMENT SUPERVISOR Narrative [facility] - 07/22/2021 10:04 AM DISTILLING DEPARTMENT SUPERVISOR Results based on detection/no detection of ribosomal RNA by amplified method. Radha Solorio MD LAB - MICROBIOLOGY O RDERABLES [facility] [address] [place] [address], [facility] [phone] * HIV-1 HIV-2 ANTIBODY + HIV P24 AG PANEL (07/28/2019 5:51 PM DISTILLING DEPARTMENT SUPERVISOR) HIV1/2 Ab + P24 Ag Non Reactive Non Reactive 07/28/2019 7:06 PM DISTILLING DEPARTMENT SUPERVISOR [facility] Blood BLOOD SPECIMEN / Unknown Lab Venipuncture / Unknown 07/28/2019 5:51 PM DISTILLING DEPARTMENT SUPERVISOR 07/28/2019 6:22 PM DISTILLING DEPARTMENT SUPERVISOR Narrative [facility] - 07/28/2019 7:06 PM DISTILLING DEPARTMENT SUPERVISOR No Laboratory evidence of HIV infection. Navarro Dorsey MD LAB - CHEMISTRY ORDERABLES Performing Organization Address City/State/[facility] Co de Phone Number [facility] [address] [place] [address] from Last 3 Months or Most Recently Relevant to Health Maintenance Administered Medications Advance Directives * Full Code (Latest Code Status on File) Date Activated Date Inactivated Comments 07/21/2021 11:21 PM 07/27/2021 3:06 PM * Full Code Date Activated Date Inactivated Comments 07/28/2019 1:04 AM 08/03/2019 1:24 PM Care Teams Security Intern Relationship Specialty Start Date End Date Machelle Hidalgo, [employer]OTE[employer] SPECIALIST-WINDOW INSTALLATION SUBCONTRACTOR [address] [place] [phone] PCP - General Nurse Practitioner Family 01/02/22
--- OUTSIDE RECORDS SUMMARY | 2024-11-02 17:04 | XMS_ITS | Clinical Summary ---
Author Organization [facility] Address [address] [place] [id number] Care Team Providers Care Labor Contractor Name Role Phone Unavailable Primary Care Provider Unavailabl e Social History Tobacco Use Types Packs/Day Years Used Date Smoking Tobacco: Never Assessed Comments Unknown Sex and Gender Information Value Date Recorded Sex Assigned at Not on file Legal Sex Female 6:57 PM CDT Gender Identity Not on file Sexual Orientation Not on file Plan of Treatment Health Maintenance Due Date Last Done Comments Cervical Cancer Screening Pa p Smear (Age 21 to 29) Every 3 Years 2002 Cervical Cancer Screening 2002 Annual Physical 2005 HPV Vaccines (1 - 3-dose series) 2017 Meningococcal B Vaccine (1 o f 2 - Standard) 2018 Hepatitis C 2020 DTaP, Tdap and Td Vaccines ( 1 - Tdap) 2021 Hepatitis B Vaccines (1 of 3 - 19+ 3-dose series) 2021 COVID-19 Vaccine ( - 2023-2 5 season) 2024 Influenza Adult (#1) 2024 Meningococcal Vaccine Aged Out No dania janet eligible based on patient's age to complete this topic Pneumococcal Vaccine: Pediat rics (0 to 5 Years) and At-Risk Patients (6 to 64 Years) Aged Out No longer eligible b ased on patient's age to complete this topic RSV Immunizations Under 20 Months Aged Out No longer eligible based on patient's age to complete this topic
--- OUTSIDE RECORDS SUMMARY | 2024-11-02 17:04 | XMS_ITS | Patient Health Summary ---
Author Organization [facility] Address [address] [place] [address] Care Team Providers Care Plaster Tender Name Role Phone Rocky Machelle Carlos APRN-WINE CONSULTANT Primary Care Provider Note from [facility],non-owned Affiliates and Associated Physician Practices is amultiple site organization consisting of ambulatory clinics and hospital sitesin [place], [place], [place] and [place]. This disclosure is being madepursuant to the Care Everywhere program and may not contain all information available regarding this patient. Last updated 18.[facility] Allergies No known active allergies Medications * Be aware that medications may not be up to date on this document. Alwaysverify current medications with the patient. * mupirocin (BACTROBAN) 2 % ointment(Started 10/05/2021) Apply to affected area 3 times daily * benzoyl peroxide (Benzac) 5 % wash benzoyl peroxide 5 % topical cleanser APPLY THIN LAYER TOPICALLY TO THE AFFECTED AREA EVERY DAY * DULoxetine (Cymbalta) 30 MG capsule(Started 11/13/2022) Take 1 (one) capsule by mouth once daily Active Problems Problem Noted Date Diagnosed Date Urinary frequency 08/21/2021 Urinary urgency 08/21/2021 Mild protein-calorie malnutrition 07/28/2021 Abdominal pain, periumbilical 07/21/2021 Non-intractable vomiting 07/21/2021 Arthralgia 01/16/2021 Other fatigue 01/16/2021 Elevated C-reactive protein (CRP) 01/16/2021 Elevated sed rate 01/16/2021 Anxiety and depression 10/25/2020 Autoimmune thyroiditis 08/29/2020 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 Chronic tonsillitis and adenoiditis 02/10/2020 Adenotonsillar hypertrophy 02/10/2020 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 Polyarthralgia 08/18/2019 Lymphadenitis 07/28/2019 Irregular periods 07/14/2018 Weight loss 07/07/2018 Migraine 12/11/2010 SUNNY positive Resolved Problems Problem [...] 09/01/2019 Rash 08/18/2019 09/15/2019 Fever 07/27/2019 08/11/2019 Epigastric abdominal pain 07/07/2018 Abdominal pain, RUQ (right upper quadrant) 07/07/2018 11/30/2020 Pain of left heel 08/11/2014 02/02/2016 Nasal vestibulitis 05/29/2011 4 Epistaxis 05/01/2011 12/20/2013 Immunizations * Covid Pfizer primary monovalent 12+ yr 0.3mL Purple cap(Given 05/16/2021, 04/25/2021) * DTaP VACCINE IM (6wk-6yrs)(Given 08/04/2006, 12/27/2003, 2002, 2002, 2002) * HEP A PEDS 2 DOSE(Given 07/30/2005, 07/09/2004) * HEP B VACCINE, PED/ADOL(Given 03/24/2003, 2002, 2002) * HIB BOOSTER(Given 12/27/2003, 2002, 2002, 2002) * Human Papilloma Virus Quadrivalent Vaccine(Given 01/19/2015, 03/10/2014, 12/20/2013) * INFLUENZA VACCINE(Given 06/19/2009, 06/30/2008, 06/15/2007, 08/04/2006) * INFLUENZA VACCINE, QUADR. 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 Temperature 36.9 C (98.4 F) 07/27/2021 12:30 PM DIGITAL CIRCUIT DESIGNER Respiratory Rate 20 07/27/2021 12:30 PM DIGITAL CIRCUIT DESIGNER Oxygen Saturation 99% 07/27/2021 12:30 PM DIGITAL CIRCUIT DESIGNER Inhaled Oxygen Concentration 100% 07/23/2021 8 :15 AM DIGITAL CIRCUIT DESIGNER Weight 65.5 kg (144 lb 6.4 oz) 12/17/2022 2:30 P M CDT Height 160.2 cm (5' 3.07 ) 12/17/2022 2:30 PM CD T Body Mass Index 25.52 12/17/2022 2:30 PM CDT Procedures * SUNNY W REFLEX DS-DNA+JAEL+SSJ(Performed 07/04/2022) * DNA ANTIBODY DOUBLE STRANDED(Performed 07/04/2022) * SCLERODERMA 70 (SCL) ANTIBODY(Performed 07/04/2022) * CHAIREZ (SM) ANTIBODY JAEL(Performed 07/04/2022) * ANATOMY AND PHYSIOLOGY INSTRUCTOR ANTIBODY(Performed 07/04/2022) * CHROMATIN ANTIBODY(Performed 07/04/2022) * SS-A/SS-B (SJOGREN'S) ANTIBODY PANEL(Performed 07/04/2022) * CBC W AUTO DIFFERENTIAL(Performed 07/04/2022) * TSH REFLEX FREE T4(Performed 07/04/2022) * COMPLEMENT C3 C4 PANEL(Performed 07/04/2022) * URINALYSIS MICROSCOPIC ONLY REFLEXED(Performed 07/04/2022) * URINALYSIS REFLEX MICROSCOPIC REFLEX CULTURE(Performed 07/04/2022) * COMPREHENSIVE METABOLIC PANEL(Performed 07/04/2022) * LAB RESULTS ORDER(Performed 10/30/2021) * LAB RESULTS ORDER(Performed 08/22/2021) * SUNNY BLOOD TITER(Performed 08/21/2021) * COMPLEMENT C4(Performed 08/21/2021) Performed for SUNNY positive, Elevated sed rate, Elevated C-reactive protein (CRP), Autoimmune thyroiditis, Anti-TPO antibodies present * COMPLEMENT C3(Performed 08/21/2021) Performed for SUNNY positive, Elevated sed rate, Elevated C-reactive protein (CRP), Autoimmune thyroiditis, Anti-TPO antibodies present * URINALYSIS W/MICROSCOPIC REFLEX TO CULTURE(Performed 08/21/2021) Performed for SUNNY positive, Elevated sed rate, Elevated C-reactive protein (CRP), Autoimmune thyroiditis, Anti-TPO antibodies present * ERYTHROCYTE SEDIMENTATION RATE(Performed 08/21/2021) Performed for SUNNY positive, Elevated sed rate, Elevated C-reactive protein (CRP), Autoimmune thyroiditis, Anti-TPO antibodies present * C-REACTIVE PROTEIN(Performed 08/21/2021) Performed for SUNNY positive, Elevated sed rate, Elevated C-reactive protein (CRP), Autoimmune thyroiditis, Anti-TPO antibodies present * CBC W AUTO DIFFERENTIAL(Performed 08/21/2021) Performed for SUNNY positive, Elevated sed rate, Elevated C-reactive protein (CRP), Autoimmune thyroiditis, Anti-TPO antibodies present * CHROMATIN ANTIBODY(Performed 08/21/2021) Performed for SUNNY positive, Elevated sed rate, Elevated C-reactive protein (CRP), Autoimmune thyroiditis, Anti-TPO antibodies present * ANATOMY AND PHYSIOLOGY INSTRUCTOR ANTIBODY(Performed 08/21/2021) Performed for SUNNY positive, Elevated sed rate, Elevated C-reactive protein (CRP), Autoimmune thyroiditis, Anti-TPO antibodies present * SCLERODERMA 70 (SCL) ANTIBODY(Performed 08/21/2021) Performed for SUNNY positive, Elevated sed rate, Elevated C-reactive protein (CRP), Autoimmune thyroiditis, Anti-TPO antibodies present * SS-B (SJOGREN'S) ANTIBODY(Performed 08/21/2021) Performed for SUNNY positive, Elevated sed rate, Elevated C-reactive protein (CRP), Autoimmune thyroiditis, Anti-TPO antibodies present * SS-A (SJOGREN'S) ANTIBODY(Performed 08/21/2021) Performed for SUNNY positive, Elevated sed rate, Elevated C-reactive protein (CRP), Autoimmune thyroiditis, Anti-TPO antibodies present * CHAIREZ (SM) ANTIBODY JAEL(Performed 08/21/2021) Performed for SUNNY positive, Elevated sed rate, Elevated C-reactive protein (CRP), Autoimmune thyroiditis, Anti-TPO antibodies present * DNA ANTIBODY DOUBLE STRANDED(Performed 08/21/2021) Performed for SUNNY positive, Elevated sed rate, Elevated C-reactive protein (CRP), Autoimmune thyroiditis, Anti-TPO antibodies present * SUNNY BLOOD SCREEN W/REFLEX TITER(Performed 08/21/2021) Performed for SUNNY positive, Elevated sed rate, Elevated C-reactive protein (CRP), Autoimmune thyroiditis, Anti-TPO antibodies present * CULTURE URINE(Performed 08/21/2021) * CULTURE URINE REFLEXED II(Performed 08/21/2021) * COMPREHENSIVE METABOLIC PANEL(Performed 07/27/2021) Performed for Abdominal pain, periumbilical * TRIGLYCERIDES BLOOD(Performed 07/27/2021) Performed for Abdominal pain, periumbilical * PHOSPHORUS BLOOD(Performed 07/27/2021) Performed for Weight loss * MAGNESIUM BLOOD(Performed 07/27/2021) Performed for Weight loss * VITAMIN D 25-HYDROXY(Performed 07/26/2021) Performed for Weight loss * T4 FREE(Performed 07/26/2021) Performed for Elevated C-reactive protein (CRP) * ERYTHROCYTE SEDIMENTATION RATE(Performed 07/26/2021) Performed for Elevated C-reactive protein (CRP) * C-REACTIVE PROTEIN(Performed 07/26/2021) Performed for Elevated sed rate * COMPREHENSIVE METABOLIC PANEL(Performed 07/26/2021) Performed for Abdominal pain, periumbilical * TRIGLYCERIDES BLOOD(Performed 07/26/2021) Performed for Abdominal pain, periumbilical * PHOSPHORUS BLOOD(Performed 07/26/2021) Performed for Weight loss * MAGNESIUM BLOOD(Performed 07/26/2021) Performed for Weight loss * TRYPTASE(Performed 07/25/2021) Performed for Abdominal pain, periumbilical * CBC W AUTO DIFFERENTIAL(Performed 07/25/2021) Performed for Abdominal pain, periumbilical * TSH REFLEX FREE T4(Performed 07/25/2021) Performed for Abdominal pain, periumbilical * LIPASE BLOOD(Performed 07/25/2021) Performed for Abdominal pain, periumbilical * C-REACTIVE PROTEIN(Performed 07/25/2021) Performed for Abdominal pain, periumbilical * COMPREHENSIVE METABOLIC PANEL(Performed 07/25/2021) Performed for Abdominal pain, periumbilical * TRIGLYCERIDES BLOOD(Performed 07/25/2021) Performed for Abdominal pain, periumbilical * PHOSPHORUS BLOOD(Performed 07/25/2021) Performed for Weight loss * MAGNESIUM BLOOD(Performed 07/25/2021) Performed for Weight loss * EKG 15-LEAD(Performed 07/24/2021) * TRYPTASE(Performed 07/24/2021) Performed for SUNNY positive * US ABDOMEN LIMITED(Performed 07/24/2021) Performed for Abdominal pain, periumbilical * CBC W AUTO DIFFERENTIAL(Performed 07/24/2021) Performed for SUNNY positive * ERYTHROCYTE SEDIMENTATION RATE(Performed 07/24/2021) Performed for SUNNY positive * C-REACTIVE PROTEIN(Performed 07/24/2021) Performed for SUNNY positive * BASIC METABOLIC PANEL (CALCIUM TOTAL)(Performed 07/24/2021) Performed for Abdominal pain, periumbilical * LACTIC ACID BLOOD(Performed 07/23/2021) Performed for Abdominal pain, periumbilical * CT ABDOMEN PELVIS W CONTRAST(Performed 07/23/2021) Performed for Abdominal pain, periumbilical * HELICOBACTER PYLORI UREASE (STL)(Performed 07/23/2021) Performed for Abdominal pain, periumbilical * UT EGD FLEX TRANSORAL W BX SNGL OR MULT(Performed 07/23/2021) * PATHOLOGY TISSUE EXAM (STL)(Performed 07/23/2021) Performed for Abdominal pain, unspecified abdominal location * EGD(Performed 07/23/2021) Performed for Abdominal pain, periumbilical * LIPASE BLOOD(Performed 07/23/2021) Performed for Abdominal pain, periumbilical * GGT(Performed 07/23/2021) Performed for Abdominal pain, periumbilical * COMPREHENSIVE METABOLIC PANEL(Performed 07/23/2021) Performed for Abdominal pain, periumbilical * CBC W AUTO DIFFERENTIAL(Performed 07/23/2021) Performed for Abdominal pain, periumbilical * US ABDOMEN LIMITED(Performed 07/23/2021) Performed for Abdominal pain, periumbilical * US PELVIS W DOPPLER OVARIES(Performed 07/23/2021) Performed for Abdominal pain, periumbilical * URINALYSIS W/MICROSCOPIC REFLEX TO CULTURE(Performed 07/22/2021) Performed for Abdominal pain, periumbilical * XR ABD OBSTRUCTION SERIES 2VW(Performed 07/22/2021) Performed for Abdominal pain, periumbilical * SARS-COV-2 (COVID-19) IN HOUSE(Performed 07/22/2021) Performed for Abdominal pain, periumbilical * CHLAMYDIA + GC AMPLIFIED PROBE(Performed 07/21/2021) * HCG URINE QUALITATIVE - POCT (IP) INTERFACED(Performed 07/21/2021) * URINE MICROSCOPIC ONLY REFLEX TO CULTURE(Performed 07/21/2021) * ERYTHROCYTE SEDIMENTATION RATE(Performed 07/21/2021) * URINALYSIS REFLEX MICROSCOPIC REFLEX CULTURE(Performed 07/21/2021) * LIPASE BLOOD(Performed 07/21/2021) * C-REACTIVE PROTEIN(Performed 07/21/2021) * COMPREHENSIVE METABOLIC PANEL(Performed 07/21/2021) * CBC W AUTO DIFFERENTIAL(Performed 07/21/2021) * HCG URINE QUAL POCT NOTIFICATION(Performed 07/21/2021) * GLUCOSE - POINT OF CARE (AMB) STL(Performed 07/20/2021) Performed for Vomiting, intractability of vomiting not specified, presence of nausea not specified,unspecified vomiting type * IMAGING/RADIOLOGY/XRAY RESULTS ORDER(Performed 07/20/2021) * LAB RESULTS ORDER(Performed 07/20/2021) * LAB RESULTS ORDER(Performed 07/20/2021) * STREP A SCREEN - POINT OF CARE (AMB) STL(Performed 01/18/2021) Performed for Sore throat * SARS-COV-2 (COVID-19)+INFLU A+B AG (AMB) POC(Performed 01/18/2021) Performed for Sore throat * CULTURE STREP GROUP A(Performed 01/18/2021) Performed for Sore throat * LAB RESULTS ORDER(Performed 01/05/2021) * LAB RESULTS ORDER(Performed 01/05/2021) * CHAIREZ (SM)+ANATOMY AND PHYSIOLOGY INSTRUCTOR ANTIBODY PANEL(Performed 01/05/2021) Performed for Febrile illness * DNA ANTIBODY(Performed 01/05/2021) Performed for Febrile illness * CULTURE URINE(Performed 01/04/2021) Performed for Febrile illness * CULTURE AEROBIC(Performed 01/04/2021) Performed for Febrile illness * SARS-COV-2 (COVID-19)+INFLU A+B AG (AMB) POC(Performed 01/04/2021) Performed for Febrile illness * STREP A SCREEN - POINT OF CARE (AMB) STL(Performed 01/04/2021) Performed for Febrile illness * URINALYSIS AUTO - POINT OF CARE (AMB) STL(Performed 01/04/2021) Performed for Febrile illness * LAB RESULTS ORDER(Performed 01/04/2021) * LAB RESULTS ORDER(Performed 01/04/2021) * URINALYSIS AUTO - POINT OF CARE (AMB) STL(Performed 11/27/2020) Performed for Pyelonephritis due to Escherichia coli * CULTURE URINE(Performed 11/27/2020) Performed for Pyelonephritis due to Escherichia coli * IMAGING/RADIOLOGY/XRAY RESULTS ORDER(Performed 11/25/2020) * ESTHELA STAINING PATTERNS REFLEXED(Performed 09/04/2020) Performed for Autoimmune thyroiditis, Weight loss, SUNNY positive, Arthralgia, unspecified joint * ERYTHROCYTE SEDIMENTATION RATE(Performed 09/04/2020) Performed for Autoimmune thyroiditis, Weight loss, SUNNY positive, Arthralgia, unspecified joint * C-REACTIVE PROTEIN(Performed 09/04/2020) Performed for Autoimmune thyroiditis, Weight loss, SUNNY positive, Arthralgia, unspecified joint * COMPREHENSIVE METABOLIC PANEL(Performed 09/04/2020) Performed for Autoimmune thyroiditis, Weight loss, SUNNY positive, Arthralgia, unspecified joint * CBC W AUTO DIFFERENTIAL(Performed 09/04/2020) Performed for Autoimmune thyroiditis, Weight loss, SUNNY positive, Arthralgia, unspecified joint * TSH(Performed 09/04/2020) Performed for Autoimmune thyroiditis, Weight loss, SUNNY positive, Arthralgia, unspecified joint * CHROMATIN ANTIBODY(Performed 09/04/2020) Performed for Autoimmune thyroiditis, Weight loss, SUNNY positive, Arthralgia, unspecified joint * ANATOMY AND PHYSIOLOGY INSTRUCTOR ANTIBODY(Performed 09/04/2020) Performed for Autoimmune thyroiditis, Weight loss, SUNNY positive, Arthralgia, unspecified joint * SCLERODERMA 70 (SCL) ANTIBODY(Performed 09/04/2020) Performed for Autoimmune thyroiditis, Weight loss, SUNNY positive, Arthralgia, unspecified joint * SS-B (SJOGREN'S) ANTIBODY(Performed 09/04/2020) Performed for Autoimmune thyroiditis, Weight loss, SUNNY positive, Arthralgia, unspecified joint * SS-A (SJOGREN'S) ANTIBODY(Performed 09/04/2020) Performed for Autoimmune thyroiditis, Weight loss, SUNNY positive, Arthralgia, unspecified joint * CHAIREZ (SM) ANTIBODY JAEL(Performed 09/04/2020) Performed for Autoimmune thyroiditis, Weight loss, SUNNY positive, Arthralgia, unspecified joint * DNA ANTIBODY DOUBLE STRANDED(Performed 09/04/2020) Performed for Autoimmune thyroiditis, Weight loss, SUNNY positive, Arthralgia, unspecified joint * SUNNY BLOOD SCREEN W/REFLEX TITER(Performed 09/04/2020) Performed for Autoimmune thyroiditis, Weight loss, SUNNY positive, Arthralgia, unspecified joint * MRI CERVICAL SPINE WO CONTRAST(Performed 08/08/2020) Performed for Chiari I malformation (HCC) * ENDOTRACHEAL TUBE NOTE(Performed 05/24/2020) * GROSS EXAM PATHOLOGY (STL)(Performed 05/24/2020) Performed for Chronic tonsillitis and adenoiditis, Hypertrophy of tonsils with hypertrophy of adenoids * TONSILLECTOMY AND ADENOIDECTOMY(Performed 05/24/2020) Performed for Chronic tonsillitis and adenoiditis, Hypertrophy of tonsils with hypertrophy of adenoids * HCG URINE QUAL POCT NOTIFICATION(Performed 05/24/2020) Performed for Adenotonsillar hypertrophy * HCG URINE QUALITATIVE - POCT (IP) INTERFACED(Performed 05/24/2020) * SARS-COV-2 (COVID-19) IN HOUSE(Performed 05/21/2020) Performed for Preop testing * IMAGING/RADIOLOGY/XRAY RESULTS ORDER(Performed 01/15/2020) * LAB MISC TEST(Performed 10/25/2019) Performed for Periodic fever syndrome (HCC) * URINALYSIS W/MICROSCOPIC REFLEX TO CULTURE(Performed 09/16/2019) Performed for Painless hematuria * CYTOMEGALOVIRUS ANTIBODY IGM BLOOD(Performed 09/16/2019) Performed for Fever, unspecified fever cause * CYTOMEGALOVIRUS ANTIBODY IGG BLOOD(Performed 09/16/2019) Performed for Fever, unspecified fever cause * KOLTON-PADRON VIRUS ANTIBODY PANEL(Performed 09/16/2019) Performed for Fever, unspecified fever cause * COMPREHENSIVE METABOLIC PANEL(Performed 09/16/2019) Performed for Fever, unspecified fever cause * C-REACTIVE PROTEIN(Performed 09/16/2019) Performed for Periodic fever syndrome (HCC) * ERYTHROCYTE SEDIMENTATION RATE(Performed 09/16/2019) Performed for Periodic fever syndrome (HCC) * COMPLEMENT C4(Performed 09/16/2019) Performed for Periodic fever syndrome (HCC) * COMPLEMENT C3(Performed 09/16/2019) Performed for Periodic fever syndrome (HCC) * CYTOKINE PANEL(Performed 09/16/2019) Performed for Periodic fever syndrome (HCC) * COMPLEMENT TOTAL(Performed 09/16/2019) Performed for History of recurrent infection * COMPLEMENT ALTERNATE AH50(Performed 09/16/2019) Performed for History of recurrent infection * IGE BLOOD(Performed 09/16/2019) Performed for History of recurrent infection * IMMUNOGLOBULINS IGG/IGM/IGA PANEL(Performed 09/16/2019) Performed for History of recurrent infection * CBC W AUTO DIFFERENTIAL(Performed 09/16/2019) Performed for History of recurrent infection * HAEMOPHILUS INFLUENZAE B IGG(Performed 09/16/2019) Performed for History of recurrent infection * RESPIRATORY PATHOGEN PANEL BY PCR(Performed 09/16/2019) Performed for Fever, unspecified fever cause * STREP A SCREEN - POINT OF CARE (AMB) STL(Performed 09/09/2019) Performed for Strep throat * URINALYSIS W/MICROSCOPIC REFLEX TO CULTURE(Performed 09/06/2019) Performed for Arthralgia, unspecified joint, Lymphadenitis, High risk medications (not anticoagulants) long-term use, Therapeutic drug monitoring * ERYTHROCYTE SEDIMENTATION RATE(Performed 09/06/2019) Performed for Arthralgia, unspecified joint, Lymphadenitis, High risk medications (not anticoagulants) long-term use, Therapeutic drug monitoring * C-REACTIVE PROTEIN(Performed 09/06/2019) Performed for Arthralgia, unspecified joint, Lymphadenitis, High risk medications (not anticoagulants) long-term use, Therapeutic drug monitoring * CBC W AUTO DIFFERENTIAL(Performed 09/06/2019) Performed for Arthralgia, unspecified joint, Lymphadenitis, High risk medications (not anticoagulants) long-term use, Therapeutic drug monitoring * COMPREHENSIVE METABOLIC PANEL(Performed 09/06/2019) Performed for Arthralgia, unspecified joint, Lymphadenitis, High risk medications (not anticoagulants) long-term use, Therapeutic drug monitoring * MRI BRAIN WWO CONTRAST(Performed 08/30/2019) Performed for Chiari malformation type I (HCC) * URINALYSIS W/MICROSCOPIC REFLEX TO CULTURE(Performed 08/16/2019) Performed for Polyarthralgia, Weight loss, Lymphadenitis * ERYTHROCYTE SEDIMENTATION RATE(Performed 08/16/2019) Performed for Polyarthralgia, Weight loss, Lymphadenitis * C-REACTIVE PROTEIN(Performed 08/16/2019) Performed for Polyarthralgia, Weight loss, Lymphadenitis * COMPREHENSIVE METABOLIC PANEL(Performed 08/16/2019) Performed for Polyarthralgia, Weight loss, Lymphadenitis * CBC W AUTO DIFFERENTIAL(Performed 08/16/2019) Performed for Polyarthralgia, Weight loss, Lymphadenitis * SACCHAROMYCES ANTIBODY (ASCA) IGG/IGA PANEL(Performed 08/16/2019) Performed for Polyarthralgia, Weight loss, Lymphadenitis * ANGIOTENSIN CONVERTING ENZYME BLOOD(Performed 08/16/2019) Performed for Polyarthralgia, Weight loss, Lymphadenitis * LYME DISEASE AB REFLEX WB(Performed 08/16/2019) Performed for Arthralgia, unspecified joint * TULARENSIS ANTIBODY IGG/IGM PANEL(Performed 08/07/2019) Performed for Lymphadenitis * Q FEVER ANTIBODY IGG(Performed 08/07/2019) Performed for Lymphadenitis * BRUCELLA ANTIBODY IGG(Performed 08/07/2019) Performed for Lymphadenitis * CRYPTOCOCCUS ANTIGEN BLOOD(Performed 08/07/2019) Performed for Lymphadenitis * ANCA VASCULITIS PANEL(Performed 08/07/2019) Performed for Lymphadenitis * HISTOPLASMA ANTIGEN BLOOD(Performed 08/07/2019) Performed for Lymphadenitis * BLASTOMYCES DERMATITIDIS AB BY ID+CF(Performed 08/07/2019) Performed for Lymphadenitis * HISTOPLASMA ANTIBODY PANEL(Performed 08/07/2019) Performed for Lymphadenitis * QUANTIFERON-TB GOLD PLUS 4-TUBE(Performed 08/07/2019) Performed for Lymphadenitis * T4 FREE(Performed 08/03/2019) * TSH(Performed 08/03/2019) * THYROGLOBULIN ANTIBODY(Performed 08/02/2019) * THYROID PEROXIDASE ANTIBODY(Performed 08/02/2019) * COMPLEMENT TOTAL(Performed 08/02/2019) * COMPLEMENT C4(Performed 08/02/2019) * COMPLEMENT C3(Performed 08/02/2019) * CHROMATIN ANTIBODY(Performed 08/02/2019) * HISTONE ANTIBODY(Performed 08/02/2019) * FIBRILLARIN (U3 ANATOMY AND PHYSIOLOGY INSTRUCTOR)(Performed 08/02/2019) * CHAIREZ (SM) ANTIBODY JAEL(Performed 08/02/2019) * DNA ANTIBODY DOUBLE STRANDED(Performed 08/02/2019) * FLOW CYTOMETRY TISSUE PANEL(Performed 08/02/2019) Performed for Acute lymphadenitis, Lymphadenitis * CULTURE TISSUE+GRAM STAIN(Performed 08/02/2019) Performed for Acute lymphadenitis * CULTURE FUNGUS OTHER+FUNGUS SMEAR(Performed 08/02/2019) * CULTURE AFB+SMEAR(Performed 08/02/2019) * PATHOLOGY TISSUE EXAM (STL)(Performed 08/02/2019) Performed for Acute lymphadenitis * ENDOTRACHEAL TUBE NOTE(Performed 08/02/2019) * BIOPSY/EXCISION LYMPH NODE(Performed 08/02/2019) Performed for Acute lymphadenitis * URINALYSIS W/MICROSCOPIC NO CULTURE(Performed 07/31/2019) * CK BLOOD(Performed 07/31/2019) * URINALYSIS W/MICROSCOPIC NO CULTURE(Performed 07/30/2019) * C-REACTIVE PROTEIN(Performed 07/30/2019) * ERYTHROCYTE SEDIMENTATION RATE(Performed 07/30/2019) * COMPREHENSIVE METABOLIC PANEL(Performed 07/30/2019) * CBC W AUTO DIFFERENTIAL(Performed 07/30/2019) * FIBRINOGEN ACTIVITY(Performed 07/29/2019) Performed for Fever, unspecified fever cause * TRIGLYCERIDES BLOOD(Performed 07/29/2019) Performed for Fever, unspecified fever cause * CYCLIC CITRUL PEPTIDE ANTIBODY IGG/IGA (CCP)(Performed 07/29/2019) Performed for Fever, unspecified fever cause * RHEUMATOID FACTOR BLOOD QUANTITATIVE(Performed 07/29/2019) Performed for Fever, unspecified fever cause * SS-B (SJOGREN'S) ANTIBODY(Performed 07/29/2019) Performed for Fever, unspecified fever cause * SS-A (SJOGREN'S) ANTIBODY(Performed 07/29/2019) Performed for Fever, unspecified fever cause * FERRITIN(Performed 07/29/2019) Performed for Fever, unspecified fever cause * CHLAMYDIA + GC AMPLIFIED PROBE(Performed 07/28/2019) * SUNNY BLOOD TITER(Performed 07/28/2019) * DNASE ANTIBODY B(Performed 07/28/2019) * ASO TITER(Performed 07/28/2019) * CYTOMEGALOVIRUS ANTIBODY IGM BLOOD(Performed 07/28/2019) * CYTOMEGALOVIRUS ANTIBODY IGG BLOOD(Performed 07/28/2019) * TOXOPLASMA ANTIBODY IGG/IGM PANEL(Performed 07/28/2019) * RPR W REFLEX TO TITER (MONITOR)(Performed 07/28/2019) * HIV-1 HIV-2 ANTIBODY + HIV P24 AG PANEL(Performed 07/28/2019) * SUNNY BLOOD SCREEN W/REFLEX TITER(Performed 07/28/2019) * URIC ACID BLOOD(Performed 07/28/2019) * LDH BLOOD(Performed 07/28/2019) * C-REACTIVE PROTEIN(Performed 07/28/2019) * ERYTHROCYTE SEDIMENTATION RATE(Performed 07/28/2019) * RESPIRATORY PATHOGEN PANEL BY PCR(Performed 07/27/2019) * HOLD SPECIMEN CSF(Performed 07/27/2019) * PROTEIN CSF(Performed 07/27/2019) * GLUCOSE CSF(Performed 07/27/2019) * ENTEROVIRUS PCR CSF(Performed 07/27/2019) * DIFFERENTIAL MANUAL CSF(Performed 07/27/2019) * CELL COUNT W DIFFERENTIAL CSF(Performed 07/27/2019) * GRAM STAIN (LAB ORDERED)(Performed 07/27/2019) * CULTURE CSF+GRAM STAIN(Performed 07/27/2019) * CULTURE CSF+GRAM STAIN(Performed 07/27/2019) * VIRAL CULTURE MISC(Performed 07/27/2019) * CT NECK SOFT TISSUE W CONT(Performed 07/27/2019) Performed for Fever, unspecified fever cause * CT HEAD WO CONTRAST(Performed 07/27/2019) Performed for Fever, unspecified fever cause * URINALYSIS W/MICROSCOPIC NO CULTURE(Performed 07/27/2019) * CULTURE URINE(Performed 07/27/2019) * HCG URINE QUALITATIVE - POCT (IP) INTERFACED(Performed 07/27/2019) * HCG URINE QUAL POCT NOTIFICATION(Performed 07/27/2019) * DIFFERENTIAL MANUAL(Performed 07/27/2019) * MONONUCLEOSIS SCREEN(Performed 07/27/2019) * COMPREHENSIVE METABOLIC PANEL(Performed 07/27/2019) * CBC W AUTO DIFFERENTIAL(Performed 07/27/2019) * CULTURE BLOOD(Performed 07/27/2019) * XR CHEST 2VW(Performed 07/27/2019) Performed for Fever, unspecified fever cause * ED CRITICAL CARE(Performed 07/27/2019) Performed for Fever, unspecified fever cause, Confusion * ED LUMBAR PUNCTURE(Performed 07/27/2019) Performed for Confusion * CULTURE AEROBIC(Performed 07/23/2019) Performed for Lymphadenopathy * STREP A SCREEN - POINT OF CARE (AMB) STL(Performed 07/23/2019) Performed for Lymphadenopathy * LAB RESULTS ORDER(Performed 07/20/2019) * ERYTHROCYTE SEDIMENTATION RATE(Performed 07/20/2019) Performed for Swollen lymph nodes * IMAGING/RADIOLOGY/XRAY RESULTS ORDER(Performed 07/12/2019) * XR KNEE LEFT 3VW(Performed 07/12/2019) Performed for Acute pain of left knee * CULTURE STREP GROUP A(Performed 06/22/2019) Performed for Acute tonsillitis, unspecified etiology, Fever, unspecified fever cause * STREP A SCREEN - POINT OF CARE (AMB)(Performed 06/22/2019) Performed for Acute tonsillitis, unspecified etiology, Fever, unspecified fever cause * LIPID PROFILE+GLUCOSE - POINT OF CARE (AMB)(Performed 02/09/2019) Performed for Screening for lipid disorders * HEMOGLOBIN - POINT OF CARE (AMB)(Performed 02/09/2019) Performed for Screening for deficiency anemia * CULTURE AEROBIC(Performed 01/12/2019) Performed for Acute pharyngitis, unspecified etiology * STREP A SCREEN - POINT OF CARE (AMB) STL(Performed 01/12/2019) Performed for Acute pharyngitis, unspecified etiology * CULTURE RESPIRATORY UPPER(Performed 11/06/2018) * INFLUENZA A+B - POINT OF CARE (AMB)(Performed 11/06/2018) Performed for Pharyngitis, unspecified etiology, Cough * STREP A SCREEN - POINT OF CARE (AMB) STL(Performed 11/06/2018) Performed for Pharyngitis, unspecified etiology, Cough * US ABDOMEN COMPLETE(Performed 08/01/2018) Performed for Abdominal pain, unspecified abdominal location * EGD(Performed 07/17/2018) Performed for Epigastric abdominal pain, Weight loss * TISSUE TRANSGLUTAMINASE AB IGA(Performed 07/17/2018) Performed for Weight loss, Abdominal pain, RUQ (right upper quadrant) * IGA BLOOD(Performed 07/17/2018) Performed for Weight loss, Abdominal pain, RUQ (right upper quadrant) * PATHOLOGY TISSUE EXAM (STL)(Performed 07/17/2018) Performed for Generalized abdominal pain * HELICOBACTER PYLORI UREASE (STL)(Performed 07/17/2018) Performed for Epigastric abdominal pain, Weight loss * ESOPHAGOGASTRODUODENOSCOPY (EGD) BIOPSY(Performed 07/17/2018) * HCG URINE QUALITATIVE - POCT (IP) INTERFACED(Performed 07/17/2018) * HCG URINE QUAL POCT NOTIFICATION(Performed 07/17/2018) Performed for Preop testing * CHLAMYDIA + GC AMPLIFIED PROBE(Performed 07/06/2018) Performed for Abnormal urine findings * CULTURE URINE(Performed 07/06/2018) Performed for Abnormal urine findings * URINALYSIS - POINT OF CARE(Performed 07/06/2018) Performed for Abnormal urine findings * URINALYSIS MICROSCOPIC ONLY REFLEXED(Performed 07/04/2018) Performed for Abnormal finding in urine * URINALYSIS REFLEX TO MICROSCOPIC NO CULTURE(Performed 07/04/2018) Performed for Abnormal finding in urine * URINALYSIS - POINT OF CARE(Performed 07/04/2018) Performed for Left upper quadrant pain, Nausea * IMAGING/RADIOLOGY/XRAY RESULTS ORDER(Performed 07/04/2018) * XR ABDOMEN KUB(Performed 07/04/2018) * CULTURE AEROBIC(Performed 05/29/2018) Performed for Pharyngitis, unspecified etiology, Acute nonintractable headache, unspecified headache type * STREP A SCREEN - POINT OF CARE (AMB) STL(Performed 05/29/2018) Performed for Pharyngitis, unspecified etiology * URINALYSIS - POINT OF CARE(Performed 02/26/2018) Performed for Urinary tract infection without hematuria, site unspecified * CULTURE URINE(Performed 02/26/2018) Performed for Urinary tract infection without hematuria, site unspecified * CULTURE RESPIRATORY UPPER(Performed 10/28/2017) * STREP A SCREEN - POINT OF CARE (AMB)(Performed 10/28/2017) Performed for Sore throat * STREP A SCREEN - POINT OF CARE (AMB)(Performed 09/23/2017) Performed for Strep throat * IMAGING/RADIOLOGY/XRAY RESULTS ORDER(Performed 09/11/2017) * HCG URINE QUALITATIVE - POINT OF CARE (AMB)(Performed 12/14/2015) Performed for Cessation of menses * XR FOOT RIGHT 3VW OR MORE(Performed 08/19/2015) * XR ANKLE LEFT 3VW OR MORE(Performed 08/19/2015) * KOLTON-PADRON VIRUS ANTIBODY PANEL(Performed 08/01/2015) * XR THORACIC SPINE 3VW(Performed 05/25/2015) * MRI BRAIN WWO CONTRAST(Performed 10/27/2014) Performed for Bleeding from the nose, Migraine * PT PTT PANEL(Performed 10/17/2014) Performed for Bleeding from the nose, Migraine * COMPREHENSIVE METABOLIC PANEL(Performed 10/17/2014) Performed for Bleeding from the nose, Migraine * CBC W AUTO DIFFERENTIAL(Performed 10/17/2014) Performed for Bleeding from the nose, Migraine * XR CALCANEUS LEFT 2VW OR MORE(Performed 08/05/2014) * IMAGING/RADIOLOGY/XRAY RESULTS ORDER(Performed 01/27/2012) * RISTOCETIN COFACTOR (VWF)(Performed 05/01/2011) Performed for Epistaxis * COAGULATION PANEL W D-DIMER(Performed 05/01/2011) Performed for Epistaxis * CBC W AUTO DIFFERENTIAL(Performed 05/01/2011) Performed for Epistaxis * URINALYSIS REFLEX TO MICROSCOPIC NO CULTURE(Performed 12/01/2010) * URINALYSIS REFLEX TO MICROSCOPIC NO CULTURE(Performed 11/30/2010) Performed for Urine frequency * CULTURE URINE(Performed 11/30/2010) Performed for Urine frequency * XR ABDOMEN KUB(Performed 11/30/2010) Performed for Urine frequency * CULTURE BLOOD(Performed 08/31/2009) Performed for Fever Presenting with Conditions Classified Elsewhere * LAB RESULTS ORDER(Performed 08/25/2009) * CULTURE BORDETELLA PERTUSSIS+PCR PNL(Performed 08/25/2009) Performed for Fever Presenting with Conditions Classified Elsewhere * XR CHEST 2VW(Performed 08/24/2009) Performed for Cough, Fever Results * URINALYSIS MICROSCOPIC ONLY REFLEXED (07/04/2022 12:53 PM CDT) Only the most recent of2 resultswithin the time period is included. WBC UA None seen 0 - 5 /hpf [facility] INSURANCE BILL RBC UA 0-2 0 - 2 /hpf [facility] INSURANCE BILL Epithelial Cells (non renal) 0-10 0 - 10 /hpf [facility] INSURANCE BILL Epithelial Cells (renal) NOT AVAILABLE [facility] INSURANCE BILL Comment:Result cannot be obt ained for this observation. Casts ua None seen None seen /lpf [facility] INSURANCE BILL Casts UA NOT AVAILABLE [facility] INSURANCE BILL Comment:Result cannot be obt ained for this observation. Crystals UA NOT AVAILABLE [facility] INSURANCE BILL Comment:Result cannot be obt ained for this observation. Crystals UA NOT AVAILABLE [facility] INS[facility]ANCE BILL Comment:Result cannot be obt ained for this observation. Mucus UA NOT AVAILABLE [facility] INSURANCE BILL Comment:Result cannot be obt ained for this observation. Bacteria UA None seen None seen/Few [facility] INSURANCE BILL Yeast UA NOT AVAILABLE [facility] INSURANCE BILL Comment:Result cannot be obt ained for this observation. Trichomonas UA NOT AVAILABLE [facility] BILL Comment:Result cannot be obt ained for this observation. Comment Urine NOT AVAILABLE [facility] INS[facility]ANCE BILL Comment: FASTING Result cannot be obtained for this observation. 07/04/2022 12:5 3 PM CDT 07/04/2022 Narrative Resulting Agency Comment Lab Testing performed at: [facility] [phone] Miah De Leon DO LAB - URINAL YSIS ORDERABLES [facility] [address] [place] [address] * CHROMATIN ANTIBODY (07/04/2022 12:53 PM CDT) Only the most recent of4 resultswithin the time period is included. Pathologist [facility] [place] Antichromatin Antibodies 0.8 0.0 - 0.9 AI [facility] INSURANCE BILL Comment:FASTING 07/04/2022 12:5 3 PM CDT 07/04/2022 Narrative Resulting Agency Comment [facility]: [email or web address] [address] [facility] [phone] Miah De Leon DO LAB - SEROLO GY ORDERABLES [facility] INSURANCE BILL [address] [place] [address] * (ABNORMAL) URINALYSIS REFLEX MICROSCOPIC REFLEX CULTURE (07/04/2022 12:53 PM CDT) Only the most recent of2 resultswithin the time period is included. Pathologist [facility] [place] Specific [place] UA 1.018 1.005 - 1.030 [facility] INSURANCE BILL pH UA 6.5 5.0 - 7.5 [facility] INSURANCE BILL Color UA Yellow Yellow [facility] INSURANCE BILL Appearance Clear Clear [facility] INSURANCE BILL Leukocyte UA Negative Negative [facility] INSURANCE BILL Protein UA Negative Negative/Tr fuad [facility] INSURANCE BILL Glucose UA Negative Negative [facility] INSURANCE BILL Ketone UA Negative Negative [facility] INSURANCE BILL Occult Blood Urine Trace(A) Negative [facility] INSURANCE BILL Bilirubin UA Negative Negative [facility] INSURANCE BILL Urobilinogen 0.2 0.2 - 1.0 mg/dL [facility] INSURANCE BILL Nitrite UA Negative Negative [facility] INSURANCE BILL Microscopic Examination Urine See below: [facility] INSURANCE BILL Comment: Microscopic was indicated and was performed. FASTING Microscopic Examination Urine NOT AVAILABLE [facility] INSURANCE BILL Comment:Result cannot be obt ained for this observation. Urinalysis Reflex [facility] INSURANCE BILL Comment: This specimen will not reflex to a Urine Culture. FASTING 07/04/2022 12:5 3 PM CDT 07/04/2022 Narrative Resulting Agency Comment Lab Testing performed at: [facility] [address] [phone] Miah Ennis Moises DO LAB - URINAL YSIS ORDERABLES Performing Organization Address [facility] de Phone Number [facility] INSURANCE BILL [address] [place] [address] * TSH REFLEX FREE T4 (07/04/2022 12:53 PM CDT) Only the most recent of2 resultswithin the time period is included. [facility] TSH 1.190 0.450 - 4.500 uIU/mL [facility] INSURANCE BILL Comment:FASTING 07/04/2022 12:5 3 PM CDT 07/04/2022 Narrative Resulting Agency Comment Lab Testing performed at: [address] [phone] Miah De Leon DO LAB - CHEMIS TRY ORDERABLES Performing Organization Address [facility] de Phone Number [facility] INSURANCE BILL [address] [place] [address] * SUNNY W REFLEX DS-DNA+JAEL+SSJ (07/04/2022 12:53 PM CDT) [facility] SUNNY Direct Negative Negative [facility] INSURANCE BILL Comment:FASTING 07/04/2022 12:5 3 PM CDT 07/04/2022 Narrative Resulting Agency Comment Lab Testing performed at: [facility] [address] [phone] Miah De Leon DO LAB - SEROLO GY ORDERABLES Performing Organization Address [facility] de Phone Number [facility] INSURANCE BILL [address] [place] [address] * CHAIREZ (SM) ANTIBODY JAEL (07/04/2022 12:53 PM CDT) Only the most recent of4 resultswithin the time period is included. [facility] Chairez (JAEL) Antibody <0.2 0.0 - 0.9 AI [facility] INSURANCE BILL Comment:FASTING 07/04/2022 12:5 3 PM CDT 07/04/2022 Narrative Resulting Agency Comment Lab Testing performed at: [address] [phone] Miah De Leon DO LAB - CHEMIS TRY ORDERABLES Performing Organization Address City/[facility] Co de Phone Number [facility] INSURANCE BILL [address] [place] [address] * ANATOMY AND PHYSIOLOGY INSTRUCTOR ANTIBODY (07/04/2022 12:53 PM CDT) Only the most recent of3 resultswithin the time period is included. ANATOMY AND PHYSIOLOGY INSTRUCTOR Antibody <0.2 0.0 - 0.9 [facility] B[facility] Comment:FASTING 07/04/2022 12:5 3 PM CDT 07/04/2022 Narrative Resulting Agency Comment Lab Testing performed at: [address] [phone] Miah De Leon DO LAB - CHEMIS TRY ORDERABLES Performing Organization Address [facility] de Phone Number [facility] INSURANCE BILL [address] [place] [address] * SS-A/SS-B (SJOGREN'S) ANTIBODY PANEL (07/04/2022 12:53 PM CDT) Sjogren's Antibodies (SSA) <0.2 0.0 - 0.9 AI [facility] INSURANCE BILL Sjogren's Antibodies (SSB) <0.2 0.0 - 0.9 AI [facility] INSURANCE BILL Comment:FASTING 07/04/2022 12:5 3 PM CDT 07/04/2022 Narrative Resulting Agency Comment Lab Testing performed at: [address] [phone] Miah De Leon DO LAB - CHEMIS TRY ORDERABLES Performing Organization Address City/[facility] Co de Phone Number [facility] INSURANCE BILL [address] [place] [address] * SCLERODERMA 70 (SCL) ANTIBODY (07/04/2022 12:53 PM CDT) Only the most recent of3 resultswithin the time period is included. Antiscleroderma -70 Antibody 0.7 0.0 - 0.9 AI [facility] INSURANCE BILL Comment:FASTING 07/04/2022 12:5 3 PM CDT 07/04/2022 Narrative Resulting Agency Comment [facility] performed [facility]: [facility] [address] [facility] [phone] Miah De Leon DO LAB - CHEMIS TRY ORDERABLES Performing Organization Address [facility] Co de Phone Number [facility] INSURANCE BILL [address] [place] [address] * DNA ANTIBODY DOUBLE STRANDED (07/04/2022 12:53 PM CDT) Only the most recent of4 resultswithin the time period is included. Pathologist [facility] [place] Anti-dsDNA Quantitative 1 0 - 9 IU/mL [facility] INSURANCE BILL Comment: Negative <5 Equivocal 5 - 9 Positive >9 FASTING 07/04/2022 12:5 3 PM CDT 07/04/2022 Narrative Resulting Agency Comment Lab Testing performed at: [email or web address] [address] [phone] Miah De Leon DO LAB - HEMATO LOGY ORDERABLES Performing Organization Address City/[facility] Co de Phone Number [facility] INSURANCE BILL [address] [place] [address] * CBC W AUTO DIFFERENTIAL (07/04/2022 12:53 PM CDT) Only the most recent of14 resultswithin the time period is included. Pathologist [facility] [place] WBC 6.7 3.4 - 10.8 x10E3/uL [facility] INSURANCE BILL RBC 4.15 3.77 - 5.28 x10E6/uL [facility] INSURANCE BILL Hemoglobin 12.8 11.1 - 15.9 g/dL [facility] INSURANCE BILL Hematocrit 38.4 34.0 - 46.6 % [facility] INSURANCE BILL MCV 93 79 - 97 fL [facility] INSURANCE BILL MCH 30.8 26.6 - 33.0 pg [facility] INSURANCE BILL MCHC 33.3 31.5 - 35.7 g/dL [facility] INSURANCE BILL RDW 11.8 11.7 - 15.4 % [facility] INSURANCE BILL Platelet Count 303 150 - 450 x10E3/uL [facility] INSURANCE BILL Granulocytes % 55 Not Estab. % [facility] INSURANCE BILL Lymphocytes % 32 Not Estab. % [facility] INSURANCE BILL Monocytes % 9 Not Estab. % [facility] INSURANCE BILL Eosinophils % 2 Not Estab. % [facility] INSURANCE BILL Basophils % 1 Not Estab. % [facility] INSURANCE BILL Immature Cells NOT AVAILABLE [facility] INSURANCE BILL Comment:Result cannot be obt ained for this observation. Granulocytes Absolute 3.7 1.4 - 7.0 x10E3/uL [facility] INSURANCE BILL Lymphocytes Absolute 2.1 0.7 - 3.1 x10E3/uL [facility] INSURANCE BILL Monocytes Absolute 0.6 0.1 - 0.9 x10E3/uL [facility] INSURANCE BILL Eosinophils Absolute 0.1 0.0 - 0.4 x10E3/uL [facility] INSURANCE BILL Basophils Absolute 0.1 0.0 - 0.2 x10E3/uL [facility] INSURANCE BILL Immature Granulocytes 1 Not Estab. % [facility] INSURANCE BILL Immature Granulocytes Absolute 0.0 0.0 - 0.1 x10E3/uL [facility] INSURANCE BILL nRBC NOT AVAILABLE [facility] INSURANCE BILL Comment:Result cannot be obt ained for this observation. Comment Hematology NOT AVAILABLE [facility] INSURANCE BILL Comment: A hand-written panel/profile was received from your office. In accordance with the [facility] Ambiguous Test Code Policy dated March 2003, we have assigned CBC with Differential/Platelet, Test Code #834558 to this request. If this is not the testing you wished to receive on this specimen, please contact the [facility] Client Inquiry/ Technical Services Department to clarify the test order. We appreciate your business. FASTING Result cannot be obtained for this observation. 07/04/2022 12:5 3 PM CDT 07/04/2022 Narrative Resulting Agency Comment Lab Testing performed at: [facility] [address] [facility] [phone] Miah De Leon DO LAB - HEMATO LOGY ORDERABLES [facility] INSURANCE BILL [address] [place] [address] * (ABNORMAL) COMPREHENSIVE METABOLIC PANEL (07/04/2022 12:53 PM CDT) Only the most recent of13 resultswithin the time period is included. Glucose 87 70 - 99 mg/dL [facility] INSURANCE BILL BUN 11 6 - 20 mg/dL [facility] INSURANCE BILL Creatinine 0.78 0.57 - 1.00 mg/dL [facility] INSURANCE BILL eGFR by CKD-EPI 111 >59 mL/min/1.7 3 [facility] INSURANCE BILL BUN/Creatinine Ratio 14 9 - 23 [facility] INSURANCE BILL Sodium 138 134 - 144 mmol/L [facility] INSURANCE BILL Potassium 4.5 3.5 - 5.2 mmol/L [facility] INSURANCE BILL Chloride 99 96 - 106 mmol/L [facility] INSURANCE BILL CO2 24 20 - 29 mmol/L [facility] INSURANCE BILL Calcium 9.9 8.7 - 10.2 mg/dL [facility] INSURANCE BILL Protein Total 6.9 6.0 - 8.5 g/dL [facility] INSURANCE BILL Albumin 4.8 3.9 - 5.0 g/dL [facility] INSURANCE BILL Globulin Total 2.1 1.5 - 4.5 g/dL [facility] INSURANCE BILL Albumin/Globulin Ratio 2.3(H) 1.2 - 2.2 [facility] INSURANCE BILL Bilirubin Total 0.2 0.0 - 1.2 mg/dL [facility] INSURANCE BILL Alkaline Phosphatase 90 42 - 106 IU/L [facility] INSURANCE BILL AST 16 0 - 40 IU/L [facility] INSURANCE BILL ALT 10 0 - 32 IU/L [facility] INSURANCE BILL Comment:FASTING 07/04/2022 12:5 3 PM CDT 07/04/2022 Narrative Resulting Agency Comment Lab Testing performed at: [facility] [address] [facility] [phone] Miah De Leon DO LAB - CHEMIS TRY ORDERABLES [facility] INSURANCE BILL [address] [place] [address] * COMPLEMENT C3 C4 PANEL (07/04/2022 12:53 PM CDT) Complement C3 112 82 - 167 mg/dL [facility] INSURANCE BILL Complement C4 21 12 - 38 mg/dL [facility] INSURANCE BILL Comment:FASTING 07/04/2022 12:5 3 PM CDT 07/04/2022 Narrative Resulting Agency Comment Lab Testing performed at: [facility] [address] [phone] Miah Raymon Moises [facility]ES LAB - CHEMIS TRY ORDERABLES Performing Organization Address City/[facility]/ZIP Co de Phone Number [facility] INSURANCE BILL [address] [place] [address] * LAB RESULTS ORDER (10/30/2021) Only the most recent of10 resultswithin the time period is included. 10/30/2021 Narrative 10/30/2021 Ordered by an unspecified provider. Scanned Document LAB - THERAPEUTIC DR TOMLIN MONITORING ORDERABLES * CULTURE URINE REFLEXED II (08/21/2021 11:57 AM DIGITAL CIRCUIT DESIGNER) Reflexive Urine Culture See Below [facility] Comment: CULTURE INDICATED - RESULTS TO FOLLOW Test Performed at: [facility] [address] ALCE GERMAIN MD 08/21/2021 11:5 7 AM DIGITAL CIRCUIT DESIGNER 08/21/2021 11:58 AM DIGITAL CIRCUIT DESIGNER Miah Ennis Moises [facility] LAB - MICROB IOLOGY ORDERABLES [facility] [address] [place] [id number] * (ABNORMAL) URINALYSIS W/MICROSCOPIC REFLEX TO CULTURE (08/21/2021 11:57 AM DIGITAL CIRCUIT DESIGNER) Only the most recent of5 resultswithin the time period is included. Color UA DARK YELLOW YELLOW [facility] Appearance CLOUDY(A) CLEAR [facility] Specific [place] UA 1.029 1.001 - 1.035 [facility] pH UA 7.0 5.0 - 8.0 [facility] Glucose UA NEGATIVE NEGATIVE [facility] Bilirubin UA NEGATIVE NEGATIVE [facility] Ketone UA TRACE(A) NEGATIVE [facility] Blood UA NEGATIVE NEGATIVE [facility] Protein UA 1+(A) NEGATIVE [facility] Nitrite NEGATIVE NEGATIVE [facility] Leukocyte Esterase TRACE(A) NEGATIVE [facility] WBC UA 20-40(A) < OR = 5 /HPF [facility] RBC UA 0-2 < OR = 2 /HPF [facility] Epithelial Cell UA 20-27(A) < OR = 5 /HPF [facility] Bacteria UA MANY(A) NONE SEEN /HPF [facility] Hyaline Casts 0-5(A) NONE SEEN /LPF [facility] Comment: Test Performed at: [facility] [facility] [address] ALEC GERMAIN MD Urine URINE SPECIMEN OBTAINED BY CLEAN CATCH PROCEDURE / Unknown 08/21/2021 11:57 AM DIGITAL CIRCUIT DESIGNER 08/21/2021 11:58 AM DIGITAL CIRCUIT DESIGNER Miah De Leon DO LAB - URINAL YSIS ORDERABLES Performing Organization Address [facility] de Phone Number [address] [address] * C-REACTIVE PROTEIN (08/21/2021 11:57 AM DIGITAL CIRCUIT DESIGNER) Only the most recent of11 resultswithin the time period is included. C-Reactive Protein 0.6 <8.0 mg/L [facility] Comment: Test Performed at: [employer] [facility] [place] [id number] [place] [address] NATHANIEL AMBROSIO DO,MPH Blood BLOOD SPECIMEN / Unknown 08/21/2021 11:57 AM DIGITAL CIRCUIT DESIGNER 08/21/2021 11:58 AM DIGITAL CIRCUIT DESIGNER Miah De Leon DO LAB - CHEMIS TRY ORDERABLES Performing Organization Address [facility] Co de Phone Number [address] [address] * (ABNORMAL) SUNNY BLOOD TITER (08/21/2021 11:57 AM DIGITAL CIRCUIT DESIGNER) Only the most recent of2 resultswithin the time period is included. SUNNY 1:320(H) titer [facility] Comment: Reference Range <1:40 Negative 1:40-1:80 Low Antibody Level >1:80 Elevated Antibody Level SUNNY Pattern Nuclear, Discrete Nuclear Dots(A) [facility] Comment: Nuclear dots (6-20 in number per cell) pattern is seen in primary biliary cholangitis (PBC), polymyositis/dermatomyositis, and other systemic autoimmune rheumatic diseases. AC-6,7: Discrete Nuclear Dots International Consensus on SUNNY Patterns (https://doi.org/10.1515/ktno-9695-8080) SUNNY Titer 1:80(H) titer [facility] Comment: A low level SUNNY titer may be present in pre-clinical autoimmune diseases and normal individuals. Reference Range <1:40 Negative 1:40-1:80 Low Antibody Level >1:80 Elevated Antibody Level SUNNY Pattern Nuclear, Speckled(A) [facility] Comment: Speckled pattern is associated with mixed connective tissue disease (MCTD), systemic lupus erythematosus (SLE), Sjogren's syndrome, dermatomyositis, and systemic sclerosis/polymyositis overlap. AC-2,4,5,29: Speckled International Consensus on SUNNY Patterns (https://doi.org/10.1515/nyge-0686-4879) Test Performed at: [facility] [id number] [place] [phone] NATHANIEL AMBROSIO DO,MPH 08/21/2021 11:5 7 AM DIGITAL CIRCUIT DESIGNER 08/21/2021 11:58 AM DIGITAL CIRCUIT DESIGNER Miah De Leon DO LAB - CHEMIS TRY ORDERABLES [facility] [address] [place] [address] * (ABNORMAL) SUNNY BLOOD SCREEN W/REFLEX TITER (08/21/2021 11:57 AM DIGITAL CIRCUIT DESIGNER) Only the most recent of3 resultswithin the time period is included. SUNNY Screen POSITIVE( A) NEGATIVE [facility] Comment: SUNNY IFA is a first line screen for detecting the presence of up to approximately 150 autoantibodies in various autoimmune diseases. A positive SUNNY IFA result is suggestive of autoimmune disease and reflexes to titer and pattern. Further laboratory testing may be considered if clinically indicated. For additional information, please refer to http://education.[employer]/faq/CFK326 (This link is being provided for informational/ educational purposes only.) Test Performed at: [facility] [address] [place] [address] NATHANIEL AMBROSIO DO,MPH Blood BLOOD SPECIMEN / Unknown 08/21/2021 11:57 AM DIGITAL CIRCUIT DESIGNER 08/21/2021 11:58 AM DIGITAL CIRCUIT DESIGNER Miah De Leon DO [employer] [facility] TRY ORDERABLES Performing Organization Address [facility] de Phone Number [address] [address] * SS-B ANTIBODY (08/21/2021 11:57 AM DIGITAL CIRCUIT DESIGNER) Only the most recent of3 resultswithin the time period is included. Sjogren's Antibodies (SSB) <1.0 NEG <1.0 NEG AI [facility] Comment: Test Performed at: [facility] [address] [place] [phone] NATHANIEL AMBROSIO DO,MPH Blood BLOOD SPECIMEN / Unknown 08/21/2021 11:57 AM DIGITAL CIRCUIT DESIGNER 08/21/2021 11:58 AM DIGITAL CIRCUIT DESIGNER Miah Lobompmalou HUGHES [employer] - CHEMIS TRY ORDERABLES Performing Organization Address [facility] Co de Phone Number [address] [address] * SS-A ANTIBODY (08/21/2021 11:57 AM DIGITAL CIRCUIT DESIGNER) Only the most recent of3 resultswithin the time period is included. Sjogren's Antibodies (SSA) <1.0 NEG <1.0 NEG AI [facility] Comment: Test Performed at: [employer] [address] [place] [address] NATHANIEL AMBROSIO DO,MPH Blood BLOOD SPECIMEN / Unknown 08/21/2021 11:57 AM DIGITAL CIRCUIT DESIGNER 08/21/2021 11:58 AM DIGITAL CIRCUIT DESIGNER Miah De Leon DO LAB - CHEMIS TRY ORDERABLES [address] [address] * (ABNORMAL) CULTURE URINE (08/21/2021 11:57 AM DIGITAL CIRCUIT DESIGNER) Only the most recent of7 resultswithin the time period is included. Culture (A) [facility] Comment: CULTURE, URINE, ROUTINE Micro Number: [id number] Test Status: Final Specimen Source: Urine Specimen Quality: Adequate Result: 50,000-100,000 CFU/mL of Escherichia coli E.coli INT BIANCA AMOX/CLAVULANATE S <=2 AMPICILLIN S 4 AMP/SULBACTAM S <=2 CEFAZOLIN NR <=4 2 CEFEPIME S <=1 CEFTRIAXONE S <=1 CIPROFLOXACIN S <=0.25 ERTAPENEM S <=0.5 GENTAMICIN S <=1 IMIPENEM S <=0.25 LEVOFLOXACIN S <=0.12 NITROFURANTOIN S <=16 PIP/TAZOBACTAM S <=4 TOBRAMYCIN S <=1 TRIMETHOPRIM/SULFA S <=20 S=Susceptible I=Intermediate R=Resistant * = Not Tested NR = Not Reported NN = See Therapy Comments THERAPY COMMENTS Note 1: For infections other than uncomplicated UTI caused by E. coli, K. pneumoniae or P. mirabilis: Cefazolin is resistant if BIANCA > or = 8 mcg/mL. (Distinguishing susceptible versus intermediate for isolates with BIANCA < or = 4 mcg/mL requires additional testing.) Note 2: For uncomplicated UTI caused by E. coli, K. pneumoniae or P. mirabilis: Cefazolin is susceptible if BIANCA <32 mcg/mL and predicts susceptible to the oral agents cefaclor, cefdinir, cefpodoxime, cefprozil, cefuroxime, cephalexin and loracarbef. Test Performed at: [employer] [address] ALEC GERMAIN MD 08/21/2021 11:5 7 AM DIGITAL CIRCUIT DESIGNER 08/21/2021 11:58 AM DIGITAL CIRCUIT DESIGNER Miah Raymon Calderoncristóbal HUGHES LAB - MICROB IOLOGY ORDERABLES Performing Organization Address [facility] de Phone Number [place] [phone] * ESR - SED RATE WESTERGREN AUTO (08/21/2021 11:57 AM DIGITAL CIRCUIT DESIGNER) Only the most recent of11 resultswithin the time period is included. Erythrocyte Sedimentation Rate Westergren 6 < OR = 20 mm/h [facility] Comment: Test Performed at: [employer] [facility] [place] [address] NATHANIEL AMBROSIO DO,MPH Blood BLOOD SPECIMEN / Unknown 08/21/2021 11:57 AM DIGITAL CIRCUIT DESIGNER 08/21/2021 11:58 AM DIGITAL CIRCUIT DESIGNER Miah Raymon Calderoncristóbal HUGHES LAB - HEMATO LOGY ORDERABLES Performing Organization Address [facility] Phone Number [place] [phone] * COMPLEMENT C4 (08/21/2021 11:57 AM DIGITAL CIRCUIT DESIGNER) Only the most recent of3 resultswithin the time period is included. Complement C4 20 15 - 57 mg/dL [facility] Comment: Test Performed at: [place] [address] NATHANIEL AMBROSIO DO,MPH Blood BLOOD SPECIMEN / Unknown 08/21/2021 11:57 AM DIGITAL CIRCUIT DESIGNER 08/21/2021 11:58 AM DIGITAL CIRCUIT DESIGNER Miah Raymon Calderoncristóbal HUGHES LAB - SEROLO GY ORDERABLES Performing Organization Address [facility] de Phone Number [address] [address] * COMPLEMENT C3 (08/21/2021 11:57 AM DIGITAL CIRCUIT DESIGNER) Only the most recent of3 resultswithin the time period is included. Complement C3 98 83 - 193 mg/dL [facility] Comment: Test Performed at: [employer] [place] [address] NATHANIEL AMBROSIO DO,MPH Blood BLOOD SPECIMEN / Unknown 08/21/2021 11:57 AM DIGITAL CIRCUIT DESIGNER 08/21/2021 11:58 AM DIGITAL CIRCUIT DESIGNER Miah De Leon DO LAB - CHEMIS TRY ORDERABLES [facility] [address] [place] [address] * TRIGLYCERIDES BLOOD (07/27/2021 5:40 AM DIGITAL CIRCUIT DESIGNER) Only the most recent of4 resultswithin the time period is included. Triglycerides 117 <150 mg/dL 07/27/2021 6:14 AM DIGITAL CIRCUIT DESIGNER [facility] Comment: ATP III Classification of Triglycerides: <150 mg/dL: Normal 150 - 199 mg/dL: Borderline High 200 - 400 mg/dL: High >500 mg/dL: Very High Blood BLOOD SPECIMEN / Unknown Lab Venipuncture / Unknown 07/27/2021 5:40 AM DIGITAL CIRCUIT DESIGNER 07/27/2021 5:46 AM DIGITAL CIRCUIT DESIGNER Helen Gomez MD LAB - CHEMISTRY ROGERIO LAM [address] [address], [place] [phone] * PHOSPHORUS BLOOD (07/27/2021 5:40 AM DIGITAL CIRCUIT DESIGNER) Only the most recent of3 resultswithin the time period is included. Phosphorus 4.3 2.9 - 5.1 mg/dL 07/27/2021 6:14 AM DIGITAL CIRCUIT DESIGNER [facility] Blood BLOOD SPECIMEN / Unknown Lab Venipuncture / Unknown 07/27/2021 5:40 AM DIGITAL CIRCUIT DESIGNER 07/27/2021 5:46 AM DIGITAL CIRCUIT DESIGNER Helen Gomez MD LAB - CHEMISTRY ROGERIO LAM [address] [address], [place] [phone] * MAGNESIUM BLOOD (07/27/2021 5:40 AM DIGITAL CIRCUIT DESIGNER) Only the most recent of3 resultswithin the time period is included. Magnesium 1.9 1.6 - 2.6 mg/dL 07/27/2021 6:14 AM DIGITAL CIRCUIT DESIGNER [facility] Blood BLOOD SPECIMEN / Unknown Lab Venipuncture / Unknown 07/27/2021 5:40 AM DIGITAL CIRCUIT DESIGNER 07/27/2021 5:46 AM DIGITAL CIRCUIT DESIGNER Helen Gomez MD LAB - CHEMISTRY ROGERIO LAM [facility] [address] [place] [address], [facility] [phone] * VITAMIN D 25-HYDROXY (07/26/2021 5:19 AM DIGITAL CIRCUIT DESIGNER) [facility] Vitamin D, 25 Hydroxy 38.0 30.0 - 80.0 ng/mL 07/26/2021 7:37 AM [facility] Comment: The recommendations for 25-Hydroxy Vitamin D clinical decision points are as follows: Deficient: <20.0 ng/mL Insufficient: 20.0 - 29.9 ng/mL Sufficient: > or =30.0 ng/mL If the 25-Hydroxy Vitamin D results are inconsitent with clinical evidence, it is recommended that follow-up testing using a method such as LC/MS/MS be performed to confirm the result. Reference: The Endocrine Society Clinical Practice Guidelines. 2011 Blood BLOOD SPECIMEN / Unknown Lab Venipuncture / Unknown 07/26/2021 5:19 AM DIGITAL CIRCUIT DESIGNER 07/26/2021 5:41 AM DIGITAL CIRCUIT DESIGNER Shalini Freeman MD LAB - CHEMISTRY ORDERABLES [facility] [address] [place] [address], [place] [phone] * T4 FREE (07/26/2021 5:19 AM DIGITAL CIRCUIT DESIGNER) Only the most recent of2 resultswithin the time period is included. Pathologist [facility] [place] T4 Free 0.9 0.7 - 1.5 ng/dL 07/26/2021 6:26 AM DIGITAL CIRCUIT DESIGNER [facility] Blood BLOOD SPECIMEN / Unknown Lab Venipuncture / Unknown 07/26/2021 5:19 AM DIGITAL CIRCUIT DESIGNER 07/26/2021 5:41 AM DIGITAL CIRCUIT DESIGNER Shalini Freeman MD LAB - CHEMISTRY ORDERABLES Performing Organization Address City/[facility]/ZIP Co de Phone Number [facility] [address] [place] [phone], [place] [phone] * TRYPTASE (07/25/2021 5:07 AM DIGITAL CIRCUIT DESIGNER) Only the most recent of2 resultswithin the time period is included. Tryptase 3.2 <=10.9 ug/L 07/27/2021 8:39 PM DIGITAL CIRCUIT DESIGNER [email or web address] ([facility]) Comment: Performed By: [employer] [address] [place] [address] Sheet Rock Sander: Ludy Stewart MD Blood BLOOD SPECIMEN / Unknown Lab Venipuncture / Unknown 07/25/2021 5:07 AM DIGITAL CIRCUIT DESIGNER 07/25/2021 5:46 AM DIGITAL CIRCUIT DESIGNER Helen Gomez MD LAB - CHEMISTRY ROGERIO LAM Performing Organization Address [facility] Co de Phone Number [email or web address] ([facility]) [address] [place] [address], [facility] * LIPASE BLOOD (07/25/2021 5:05 AM DIGITAL CIRCUIT DESIGNER) Only the most recent of3 resultswithin the time period is included. Lipase 20 8 - 78 U/L 07/25/2021 5:46 AM DIGITAL CIRCUIT DESIGNER [facility] Blood BLOOD SPECIMEN / Unknown Lab Venipuncture / Unknown 07/25/2021 5:05 AM DIGITAL CIRCUIT DESIGNER 07/25/2021 5:15 AM DIGITAL CIRCUIT DESIGNER Helen Gomez MD LAB - CHEMISTRY ROGERIO LAM [facility] [address] [place] [address], [place] [phone] * EKG 15-LEAD (07/24/2021 1:13 PM DIGITAL CIRCUIT DESIGNER) Ventricular Rate 61 BPM CG MUSE Atrial Rate 61 BPM CG MUSE P-R Interval 134 ms CG MUSE QRS Duration ms 80 ms CG MUSE Q-T Interval ms 408 ms CG MUSE QTC Calculation (Bezet) 410 ms CG MUSE Calculated P [place] 50 degrees CG MUSE Calculated R [place] 66 degrees CG MUSE Calculated T [place] 38 degrees CG MUSE Interpretation EKG Normal sinus rhythm with sinus arrhythmia Low voltage throughout Confirmed by Melissa Hagen MD ([id number]) on 08/07/2021 10:12:47 AM CG MUSE 07/24/2021 1:13 PM DIGITAL CIRCUIT DESIGNER 08/07/2021 10:12 AM DIGITAL CIRCUIT DESIGNER Helne Gomez MD ECG ORDERABLES CG MUSE * US ABDOMEN LIMITED (07/24/2021 9:17 AM DIGITAL CIRCUIT DESIGNER) Only the most recent of2 resultswithin the time period is included. Anatomical Region Laterality Modality Abdomen Ultrasound 07/24/2021 8:34 AM DIGITAL CIRCUIT DESIGNER Impressions 07/24/2021 9:42 AM DIGITAL CIRCUIT DESIGNER Normal right upper quadrant abdominal ultrasound. Reading Radiologist: Reyes Dexter on 07/24/2021 at 9:42 AM Narrative 07/24/2021 9:42 AM DIGITAL CIRCUIT DESIGNER INDICATION: Periumbilical abdominal pain COMPARISON: None available. TECHNIQUE: Ultrasound imaging of the abdomen right upper quadrant per department protocol. FINDINGS: Liver: The liver is upper limits of normal in size measuring 16.1 cm in length. Liver demonstrates smooth homogenous echotexture. No intrahepatic biliary ductal dilation is seen. Portal venous flow is hepatopetal. Gallbladder: The lumen is anechoic. There is no dilation of the common bile duct. Pancreas: The echotexture is normal. No ductal dilation or peripancreatic fluid is seen. Right kidney: 10.4 cm in length. The cortical thickness and echotexture are normal. Other: No fluid or mass is present. Procedure Note Reyes Dexter MD - 07/24/2021 INDICATION: Periumbilical abdominal pain COMPARISON: None available. TECHNIQUE: Ultrasound imaging of the abdomen right upper quadrant perdepartment protocol. FINDINGS: Liver: The liver is upper limits of normal in size measuring 16.1 cm inlength. Liver demonstrates smooth homogenous echotexture. No intrahepatic biliaryductal dilation is seen. Portal venous flow is hepatopetal. Gallbladder: The lumen is anechoic. There is no dilation of the commonbile duct. Pancreas: The echotexture is normal. No ductal dilation or peripancreaticfluid is seen. Right kidney: 10.4 cm in length. The cortical thickness and echotextureare normal. Other: No fluid or mass is present. IMPRESSION Normal right upper quadrant abdominal ultrasound. Reading Radiologist: Reyes Dexter on 07/24/2021 at 9:42 AM Helen Gomez MD US ORDERABLES * (ABNORMAL) BASIC METABOLIC PANEL (CALCIUM TOTAL) (07/24/2021 4:33 AM DIGITAL CIRCUIT DESIGNER) BUN <5(L) 7 - 26 mg/dL 07/24/2021 5:40 AM [facility] Creatinine 0.72 0.56 - 0.96 mg/dL 07/24/2021 5:40 AM [facility] Sodium 143 136 - 145 mmol/L 07/24/2021 5:40 AM [facility] Potassium 3.3(L) 3.5 - 4.5 mmol/L 07/24/2021 5:40 AM [facility] Chloride 108(H) 98 - 107 mmol/L 07/24/2021 5:40 AM [facility] CO2 28 22 - 29 mmol/L 07/24/2021 5:40 AM [facility] Glucose 95 70 - 115 mg/dL 07/24/2021 5:40 AM [facility] Calcium 8.9 8.4 - 10.2 mg/dL 07/24/2021 5:40 AM [facility] Anion Gap 10 8 - 18 07/24/2021 5:40 AM [facility] BUN/Creatinine Ratio <7(L) 7 - 23 07/24/2021 5:40 AM [facility] Osmolality Calculated <293 270 - 300 mOsm/kg 07/24/2021 5:40 AM [facility] eGFR by CKD-EPI >90 >=90 mL/min/1.7 3 m2 07/24/2021 5:40 AM DIGITAL CIRCUIT DESIGNER [facility] Blood BLOOD SPECIMEN / Unknown Lab Venipuncture / Unknown 07/24/2021 4:33 AM DIGITAL CIRCUIT DESIGNER 07/24/2021 5:11 AM DIGITAL CIRCUIT DESIGNER Helen Gomez MD LAB - CHEMISTRY ROGERIO LAM [address] [address], [facility] [phone] * LACTIC ACID BLOOD (07/23/2021 4:22 PM DIGITAL CIRCUIT DESIGNER) Lactic Acid-Stat 0.6 <=2.0 mmol/L 07/23/2021 4:51 PM DIGITAL CIRCUIT DESIGNER [facility] Blood BLOOD SPECIMEN / Unknown Lab Venipuncture / Unknown 07/23/2021 4:22 PM DIGITAL CIRCUIT DESIGNER 07/23/2021 4:31 PM DIGITAL CIRCUIT DESIGNER Helen Gomez MD LAB - CHEMISTRY ROGERIO LAM Performing Organization Address City/[facility]/ZIP Co de Phone Number [address] [address], [facility] [phone] * CT ABDOMEN PELVIS W CONTRAST (07/23/2021 3:08 PM DIGITAL CIRCUIT DESIGNER) Anatomical Region Laterality Modality Abdomen, Pelvis Computed Tomogra phy 07/23/2021 3:30 PM DIGITAL CIRCUIT DESIGNER Impressions 07/23/2021 3:48 PM DIGITAL CIRCUIT DESIGNER IMPRESSION: 1.No acute process in the abdomen or pelvis. 2.Left ovarian cyst with adjacent pelvic free fluid. > Dictated by Michele Kang (Body Specialist) I, Reagan Byrd MD have personally reviewed and interpreted this examination/study. > Interpreting Provider: Reagan Byrd MD on 07/23/2021 3:48 PM Narrative 07/23/2021 3:48 PM DIGITAL CIRCUIT DESIGNER PROCEDURE: CT ABDOMEN PELVIS W CONTRAST, DATE/TIME OF EXAM: 07/23/2021 3:09 PM, LOCATION [facility] INDICATION: R10.33: Periumbilical pain ADDITIONAL CLINICAL INFORMATION: Ordering Provider Reason For Exam: Abdominal pain Technologist Note: Abdominal pain Additional: COMPARISON: Abdominal ultrasound on 07/23/2021 TECHNIQUE: CT of the abdomen and pelvis with IOPAMIDOL 61 % IV SOLN:95 mL. Coronal and sagittal reformatted images were submitted. DOSE: CTDI: 5.02 mGy, DLP: 262.41 mGy-cm The reported CTDIvol (mGy) and DLP (mGy-cm) values are generated from scan acquisition factors based on 32 cm (body) or 16 cm (head) phantoms and may underestimate or overestimate the actual patient dose based on patient size and other factors. FINDINGS: Chest: There is mild left basilar atelectasis. Hepatobiliary: Normal liver size and attenuation. No gallbladder calculus, gallbladder wall thickening or biliary dilation. Pancreas: Normal without peripancreatic fluid collection. Spleen: Normal attenuation without mass. Adrenal glands: Normal in morphology without mass lesion. : Normal appearance of the kidneys with symmetric parenchymal enhancement. No bladder abnormality is seen. An IUD is in place. There is a 4.4 cm left adnexal cyst with surrounding free pelvic fluid which measures simple fluid attenuation. GI: No obstruction or abnormal bowel wall thickening. Vascular: The aorta and inferior vena cava are normal. Other: No free air or abnormal fluid collection. Bones: The bones are normal. Procedure Note Reagan Byrd DO - 07/23/2021 PROCEDURE: CT ABDOMEN PELVIS W CONTRAST, DATE/TIME OF EXAM: 07/23/2021 3:09 PM, LOCATION [facility] INDICATION: R10.33: Periumbilical pain ADDITIONAL CLINICAL INFORMATION: Ordering Provider Reason For Exam: Abdominal pain Technologist Note: Abdominal pain Additional: COMPARISON: Abdominal ultrasound on 07/23/2021 TECHNIQUE: CT of the abdomen and pelvis with IOPAMIDOL 61 % IV SOLN:95mL. Coronal and sagittal reformatted images were submitted. DOSE: CTDI: 5.02 mGy, DLP: 262.41 mGy-cm The reported CTDIvol (mGy) and DLP (mGy-cm) values are generated fromscan acquisition factors based on 32 cm (body) or 16 cm (head) phantoms andmay underestimate or overestimate the actual patient dose based on patientsize and other factors. FINDINGS: Chest: There is mild left basilar atelectasis. Hepatobiliary: Normal liver size and attenuation. No gallbladdercalculus, gallbladder wall thickening or biliary dilation. Pancreas: Normal without peripancreatic fluid collection. Spleen: Normal attenuation without mass. Adrenal glands: Normal in morphology without mass lesion. : Normal appearance of the kidneys with symmetric parenchymal enhancement. No bladder abnormality is seen. An IUD is in place. There hill 4.4 cm left adnexal cyst with surrounding free pelvic fluid whichmeasures simple fluid attenuation. GI: No obstruction or abnormal bowel wall thickening. Vascular: The aorta and inferior vena cava are normal. Other: No free air or abnormal fluid collection. Bones: The bones are normal. IMPRESSION: 1.No acute process in the abdomen or pelvis. 2.Left ovarian cyst with adjacent pelvic free fluid. > Dictated by Michele Kang (Body Specialist) I, Reagan Byrd MD have personally reviewed and interpreted this examination/study. > Interpreting Provider: Reagan Byrd MD on 07/23/2021 3:48 PM [address] Gomez MD CT ORDERABLES * HELICOBACTER PYLORI UREASE (STL) (07/23/2021 8:01 AM DIGITAL CIRCUIT DESIGNER) Only the most recent of2 resultswithin the time period is included. Pathologist [facility] [place] Helicobacter pylori Urease Initial Negative Negative 07/23/2021 12:50 PM DIGITAL CIRCUIT DESIGNER [facility] Helicobacter pylori Urease Final Negative Negative 07/23/2021 12:50 PM DIGITAL CIRCUIT DESIGNER [facility] Microbiology GASTRIC ANTRAL BIOPSY SPECIMEN / Unknown Collection / Unknown 07/23/2021 8:01 AM DIGITAL CIRCUIT DESIGNER 07/23/2021 8:18 AM DIGITAL CIRCUIT DESIGNER Glenn Montana MD LAB - MICROBIOLOGY O RDERABLES [address] [address], [facility] [phone] * PATHOLOGY TISSUE EXAM (STL) (07/23/2021 7:22 AM DIGITAL CIRCUIT DESIGNER) Only the most recent of3 resultswithin the time period is included. Pathologist [facility] [place] Case Report Surgical Pathology Report Case: [id number] Authorizing Provider: Glenn Montana MD Collected: 07/23/2021 07:22 AM Ordering Location: ENDOSCOPY SERVICES Received: 07/23/2021 10:44 AM Pathologist: Kym Man MD Specimens: A) - Duodenal Biopsy B) - Stomach Biopsy C) - Esophageal Biopsy 07/24/2021 3:50 PM [facility] Final Diagnosis Duodenum, biopsy: Duodenal mucosa with focal acute inflammation. Stomach, biopsy: No pathologic diagnosis. Esophagus, biopsy: No pathologic diagnosis. 07/24/2021 3:50 PM [facility] Clinical History The patient is a 21-year-old young woman with abdominal pain who underwent upper endoscopy. The endoscopic findings were duodenitis and mild gastritis. 07/24/2021 3:50 PM [facility] Gross Description The specimens are received fixed in formalin in 3 containers for gross and microscopic examination. All containers are labeled with the patient's name, Shawnee Mac. Specimen A, duodenal biopsy, consists of three soft, yellow-hernandez tissue fragments, 3 mm to 5 mm in greatest dimension. The specimen is submitted in toto as A1. Specimen B, stomach biopsy, consists of two soft, pale hernandez tissue fragments, 3 mm and 5 mm in greatest dimension. The specimen is submitted in toto as B1. Specimen C, esophageal biopsy, consists of a 6 mm soft, woody-white tissue fragment, submitted in toto as C1. (CT/arm) 07/24/2021 3:50 PM [facility] Microscopic Description 9 H&E. A. Sections of the duodenum show preserved villous architecture with no increase in intraepithelial lymphocytes. Focal foci of neutrophils are present in the lamina propria and extending into the epithelium. B. Sections of the stomach show antral and oxyntic type gastric mucosa with a normocellular lamina propria and preserved glandular architecture. C. Sections of the esophagus show unremarkable stratified squamous mucosa. 07/24/2021 3:50 PM [facility] Disclaimer The performance characteristics of all immunohistochemical and indirect immunofluorescence stains (if any) cited in this report were determined by the [facility] in compliance with Clinical Laboratory Improvement Amendments of 1988 (CLIA'88) regulations. Some of these tests rely on the use of analyte-specific reagents and are subject to specific labeling requirements by the U.S. Food and Drug Administration (FDA). Such tests were developed by the [facility] and have not been cleared or approved by the FDA. The FDA has determined that such clearance or approval is not necessary. These tests are used for clinical purposes and should not be regarded as investigational or for research. This case has been personally reviewed and interpreted by the attending (teaching) pathologist. 07/24/2021 3:50 PM DIGITAL CIRCUIT DESIGNER [facility] Embedded Images 07/24/2021 3:50 PM DIGITAL CIRCUIT DESIGNER [facility] Pathology/Cytology ESOPHAGEAL BIOPSY SPECIMEN / Unknown 07/23/2021 7:22 AM DIGITAL CIRCUIT DESIGNER 07/23/2021 10:44 AM DIGITAL CIRCUIT DESIGNER Miscellaneous samples (specimen) BIOPSY OF STOMACH / Unknown 07/23/2021 7:22 AM DIGITAL CIRCUIT DESIGNER 07/23/2021 10:44 AM DIGITAL CIRCUIT DESIGNER Miscellaneous samples (specimen) ESOPHAGEAL BIOPSY SPECIMEN / Unknown 07/23/2021 7:22 AM DIGITAL CIRCUIT DESIGNER 07/23/2021 10:44 AM DIGITAL CIRCUIT DESIGNER Glenn Montana MD LAB - PATHOLOGY/CYTO LOGY ORDERABLES Performing Organization Address City/State/[facility] de Phone Number [facility] [place], [place] [phone] * EGD (07/23/2021 5:43 AM DIGITAL CIRCUIT DESIGNER) Report Endoscopy POC _ Patient Name: Shawnee Mac Procedure Date: 07/23/2021 5:43 AM Date of : 2000 Admit Type: Inpatient Age: 21 Gender: Female Race: White Attending MD: Glenn Montana , Order #: [id number] _ Procedure: Upper GI endoscopy Indications: Epigastric abdominal pain Providers: Glenn Montana MD (attending), Liyah Adler MD (fellow) Referring MD: Joana Ambrose MD Medicines: Monitored Anesthesia Care Complications: No immediate complications. _ Procedure: Pre-Anesthesia Assessment: - Prior to the procedure, a History and Physical was performed, and patient medications, allergies and sensitivities were reviewed. The patient's tolerance of previous anesthesia was reviewed. - The risks and benefits of the procedure and the sedation options and risks were discussed with the patient. All questions were answered and informed consent was obtained. - Patient identification and proposed procedure were verified prior to the procedure by the physician, the nurse and the anesthesiologist. The procedure was verified in the endoscopy suite. After obtaining informed consent, the endoscope was passed under direct vision. Throughout the procedure, the patient's blood pressure, pulse, and oxygen saturations were monitored continuously. The Endoscope was introduced through the mouth, and advanced to the third part of duodenum. The upper GI endoscopy was accomplished without difficulty. The patient tolerated the procedure well. Findings: The examined esophagus was normal. Biopsies were taken with a cold forceps for histology. Scattered mild inflammation characterized by erythema was found in the gastric antrum and at the pylorus. Biopsies were taken with a cold forceps for histology. Biopsies were taken with a cold forceps for Helicobacter pylori testing using CLOtest. Diffuse mild inflammation characterized by congestion (edema) and erythema was found in the first portion of the duodenum, in the second portion of the duodenum and in the third portion of the duodenum. Biopsies were taken with a cold forceps for histology. Impression: - Normal esophagus. Biopsied. - Gastritis. Biopsied. - Duodenitis. Biopsied. Recommendation: - Return patient to [facility] for ongoing care. - Resume regular diet. - Continue present medications. Procedure Code(s): --- Professional --- 39771, Esophagogastroduod enoscopy, flexible, transoral; with biopsy, single or multiple --- Technical --- 18611, Esophagogastroduod enoscopy, flexible, transoral; with biopsy, single or multiple Diagnosis Code(s): --- Professional --- K29.70, Gastritis, unspecified, without bleeding K29.80, Duodenitis without bleeding R10.13, Epigastric pain --- Technical --- K29.70, Gastritis, unspecified, without bleeding K29.80, Duodenitis without bleeding R10.13, Epigastric pain CPT copyright 2019 [employer]. All rights reserved. The codes documented in this report are preliminary and upon head of drama review may be revised to meet current compliance requirements. Glenn Montana MD Glenn Montana, 07/23/2021 8:20:52 AM This report has been signed electronically. Number of Addenda: 0 Note Initiated On: 07/23/2021 5:43 AM Procedure Date: 07/23/2021 5:43:00 AM Estimated Blood Loss: Estimated blood loss: none. This report has been signed electronically. [facility] 07/23/2021 5:43 AM DIGITAL CIRCUIT DESIGNER Helen Gomez MD GI PROCEDURE ORDERAB LES [facility] [address] [place] [address] * GGT (07/23/2021 5:13 AM DIGITAL CIRCUIT DESIGNER) GGT 9 9 - 64 Units/L 07/23/2021 5:54 AM DIGITAL CIRCUIT DESIGNER [facility] Blood BLOOD SPECIMEN / Unknown Lab Venipuncture / Unknown 07/23/2021 5:13 AM DIGITAL CIRCUIT DESIGNER 07/23/2021 5:27 AM DIGITAL CIRCUIT DESIGNER Helen Gomez MD LAB - CHEMISTRY [facility] Organization Address City/State/ZIP Co de Phone Number [address] [place] [address], [facility] [phone] * US PELVIS W DOPPLER OVARIES (07/23/2021 12:35 AM DIGITAL CIRCUIT DESIGNER) Anatomical Region Laterality Modality Pelvis Ultrasound 07/23/2021 8:09 AM DIGITAL CIRCUIT DESIGNER Impressions 07/23/2021 8:24 AM DIGITAL CIRCUIT DESIGNER IMPRESSION: 1.Dominant left ovarian follicle versus small left ovarian cyst. Otherwise normal ultrasound of the pelvis. 2. Normal spectral Doppler interrogation of the ovaries. Preliminary report given by Dr. Ordonez at 0037 on 09/22/2020. > Interpreting Provider: Phuong Caba DO on 07/23/2021 8:24 AM Narrative 07/23/2021 8:24 AM DIGITAL CIRCUIT DESIGNER PROCEDURE: US PELVIS W DOPPLER OVARIES, DATE/TIME OF EXAM: 07/23/2021 12:35 AM, LOCATION [facility] INDICATION: R10.33: Periumbilical pain ADDITIONAL CLINICAL INFORMATION: Ordering Provider Reason For Exam: None. Technologist Note: Pain since Friday. Additional: COMPARISON: None. TECHNIQUE: Transabdominal ultrasound of the pelvis with complete color and spectral Doppler evaluation of the ovaries. FINDINGS: Uterus: 7.7 x 3.2 x 4.7 cm Endometrium: 0.5 cm The uterus has normal appearance for patient age. The myometrium is homogenous and normal. There is no pathological endometrial thickening or abnormal fluid. An intrauterine device is appropriately positioned. Right Ovary: 2.2 x 1.3 x 1.5 cm. Volume 2.4 mL The right ovary is normal in appearance. Left Ovary: 2.3 x 5.1 x 3.2 cm. Volume 19.3 mL There is a 2.3 x 3.2 x 1.6 cm hypoechoic focus within the left ovary which likely represents a dominant follicle/small ovarian cyst.. Echotexture is otherwise normal. Doppler: Spectral Doppler waveforms demonstrate arterial and venous flow to both ovaries.. Normal color flow is demonstrated to both ovaries. Other: Trace free fluid within the pelvis. Procedure Note Phuong Caba DO - 07/23/2021 PROCEDURE: US PELVIS W DOPPLER OVARIES, DATE/TIME OF EXAM: 07/23/2021 12:35 AM, LOCATION [facility] INDICATION: R10.33: Periumbilical pain ADDITIONAL CLINICAL INFORMATION: Ordering Provider Reason For Exam: None. Technologist Note: Pain since Friday. Additional: COMPARISON: None. TECHNIQUE: Transabdominal ultrasound of the pelvis with complete colorand spectral Doppler evaluation of the ovaries. FINDINGS: Uterus: 7.7 x 3.2 x 4.7 cm Endometrium: 0.5 cm The uterus has normal appearance for patient age. The myometrium is homogenous and normal. There is no pathological endometrial thickeningor abnormal fluid. An intrauterine device is appropriately positioned. Right Ovary: 2.2 x 1.3 x 1.5 cm. Volume 2.4 mL The right ovary is normal in appearance. Left Ovary: 2.3 x 5.1 x 3.2 cm. Volume 19.3 mL There is a 2.3 x 3.2 x 1.6 cm hypoechoic focus within the left ovarywhich likely represents a dominant follicle/small ovarian cyst.. Echotextureis otherwise normal. Doppler: Spectral Doppler waveforms demonstrate arterial and venous flowto both ovaries.. Normal color flow is demonstrated to both ovaries. Other: Trace free fluid within the pelvis. IMPRESSION: 1.Dominant left ovarian follicle versus small left ovarian cyst.Otherwise normal ultrasound of the pelvis. 2. Normal spectral Doppler interrogation of the ovaries. Preliminary report given by Dr. Ordonez at 0037 on 09/22/2020. > Interpreting Provider: Phuong Caba DO on 07/23/2021 8:24 AM Helen Gomez MD US ORDERABLES * XR ABD OBSTRUCTION SERIES 2VW (07/22/2021 2:44 PM DIGITAL CIRCUIT DESIGNER) Anatomical Region Laterality Modality Abdomen Radiographic Fozia ging 07/23/2021 8:32 AM DIGITAL CIRCUIT DESIGNER Impressions 07/23/2021 8:36 AM DIGITAL CIRCUIT DESIGNER IMPRESSION: Nonobstructive bowel gas pattern. Pulmonary report was given by Dr. Ordonez at 2228 on 07/22/2021. > Interpreting Provider: Phuong Caba DO on 07/23/2021 8:36 AM Narrative 07/23/2021 8:36 AM DIGITAL CIRCUIT DESIGNER PROCEDURE: XR ABD OBSTRUCTION SERIES 2VW, DATE/TIME OF EXAM: 07/22/2021 2:44 PM, LOCATION [facility] INDICATION: R10.33: Periumbilical pain ADDITIONAL CLINICAL INFORMATION: Ordering Provider Reason For Exam: None Technologist Note: None Additional: COMPARISON: None. FINDINGS: Moderate colonic stool load is present. There are no findings to suggest bowel obstruction, free intraperitoneal gas or pneumatosis. No abnormal calcifications are seen. Punctate densities are seen throughout the fecal content. Intrauterine device seen overlying the pelvis. No bone abnormality is seen. The lower chest is normal. Procedure Note Phuong Caba DO - 07/23/2021 PROCEDURE: XR ABD OBSTRUCTION SERIES 2VW, DATE/TIME OF EXAM:07/22/2021 2:44 PM, LOCATION [facility] INDICATION: R10.33: Periumbilical pain ADDITIONAL CLINICAL INFORMATION: Ordering Provider Reason For Exam: None Technologist Note: None Additional: COMPARISON: None. FINDINGS: Moderate colonic stool load is present. There are no findings to suggest bowel obstruction, free intraperitoneal gas or pneumatosis. No abnormal calcifications are seen. Punctate densities are seenthroughout the fecal content. Intrauterine device seen overlying the pelvis. No bone abnormality is seen. The lower chest is normal. IMPRESSION: Nonobstructive bowel gas pattern. Pulmonary report was given by Dr. Ordonez at 2228 on 07/22/2021. > Interpreting Provider: Phuong Caba DO on 07/23/2021 8:36 AM Helen Gomez MD DIAGNOSTIC IMAGING O RDERABLES * SARS-COV-2 (COVID-19) INTERNAL (07/22/2021 11:54 AM DIGITAL CIRCUIT DESIGNER) Only the most recent of2 resultswithin the time period is included. COVID-19 PCR Not detected Not detected 07/22/2021 7:49 PM DIGITAL CIRCUIT DESIGNER [facility] MICROBIOLOGY Microbiology SPECIMEN FROM NASOPHARYNGEAL STRUCTURE / Unknown Collection / Unknown 07/22/2021 11:54 AM DIGITAL CIRCUIT DESIGNER 07/22/2021 12:08 PM DIGITAL CIRCUIT DESIGNER Narrative [facility] MICROBIOLOGY - 07/22/2021 7:49 PM DIGITAL CIRCUIT DESIGNER This nucleic acid amplification assay performance was validated by [facility]. This test has been authorized by the Food and Drug administration (FDA)under an Emergency Use Authorization (EUA). This test has been validated in accordance with the FDA's guidance document Policy for Diagnostic Testing in Laboratories Certified to perform High Complexity Testing under CLIA prior to Emergency Use Authorization for Coronavirus Disease-2019 during the Public Health Emergency issued on November 06, 2019. FDA independent review of this validation is pending. This test is only authorized for the duration of time the declaration that circumstances exist justifying the authorization of emergency use of in vitro diagnostic tests for detection of SARS-CoV-2 virus and/or diagnosis of COVID-19 infection under section 564(b)(1) of the Act, 21 U.S.C 360bbb-3 (b)(1), unless the authorization is terminated or revoked sooner. Fact Sheets for this EUA assay are available upon request. Helen Gomez MD LAB - MICROBIOLOGY [place] [facility] MICROBIOLOGY [address] [place] [address], [facility] [phone] * CHLAMYDIA + GC AMPLIFIED PROBE (STL) (07/21/2021 10:58 PM DIGITAL CIRCUIT DESIGNER) Only the most recent of2 resultswithin the time period is included. Chlamydia Amplified Probe Negative Negative 07/22/2021 10:04 AM DIGITAL CIRCUIT DESIGNER [facility] MICROBIOLOGY GC Amplified Probe Negative Negative 07/22/2021 10:04 AM DIGITAL CIRCUIT DESIGNER [facility] MICROBIOLOGY Microbiology URINE / Unknown Collection / Unknown 07/21/2021 10:58 PM DIGITAL CIRCUIT DESIGNER 07/22/2021 1:13 AM DIGITAL CIRCUIT DESIGNER Narrative [facility] MICROBIOLOGY - 07/22/2021 10:04 AM DIGITAL CIRCUIT DESIGNER Results based on detection/no detection of ribosomal RNA by amplified method. Radha Solorio MD LAB - MICROBIOLOGY O [place] Performing Organization Address City/[facility]/ZIP Co de Phone Number [facility] MICROBIOLOGY [address] [place] [address], [facility] [phone] * HCG URINE QUALITATIVE - POCT (IP) INTERFACED (07/21/2021 8:46 PM DIGITAL CIRCUIT DESIGNER) Only the most recent of4 resultswithin the time period is included. HCG Qual Urine Negative Negative 07/21/2021 8:57 PM DIGITAL CIRCUIT DESIGNER [facility] Urine URINE / Unknown 07/21/2021 8 :46 PM DIGITAL CIRCUIT DESIGNER 07/21/2021 8:57 PM DIGITAL CIRCUIT DESIGNER Radha Solorio MD LAB - POINT OF CARE ORDERABLES [facility] [phone] * (ABNORMAL) URINE MICROSCOPIC ONLY REFLEX TO CULTURE (07/21/2021 8:40 PM DIGITAL CIRCUIT DESIGNER) Reflex Status Culture not indicated 07/21/2021 9:00 PM DIGITAL CIRCUIT DESIGNER [facility] RBC UA 0-2 None Seen, 0-2, 3-5 /HPF 07/21/2021 9:00 PM DIGITAL CIRCUIT DESIGNER [facility] WBC UA 0-5 None Seen, 0-5 /HPF 07/21/2021 9:00 PM [facility] Bacteria UA 1+(A) None /HPF 07/21/2021 9:00 PM [facility] Squamous Epithelial Cells UA 3-5 None Seen, 0-2, 3-5 /HPF 07/21/2021 9:00 PM [facility] Mucus UA 1+ /LPF 07/21/2021 9:00 PM DIGITAL CIRCUIT DESIGNER [facility] Urine URINE SPECIMEN OBTAINED BY CLEAN CATCH PROCEDURE / Unknown Collection / Unknown 07/21/2021 8:40 PM DIGITAL CIRCUIT DESIGNER 07/21/2021 8:49 PM DIGITAL CIRCUIT DESIGNER Narrative [facility] - 07/21/2021 9:00 PM DIGITAL CIRCUIT DESIGNER Radha Solorio MD LAB - URINALYSIS ORD ERABLES [facility] [address] [place] [address], [facility] [phone] * HCG URINE QUAL POCT NOTIFICATION (07/21/2021 8:06 PM DIGITAL CIRCUIT DESIGNER) Only the most recent of4 resultswithin the time period is included. Pathologist [facility] [place] Comment Notification Label Only - See Separate Report 07/21/2021 9:30 PM DIGITAL CIRCUIT DESIGNER [facility] Urine URINE / Unknown 07/21/2021 8 :06 PM DIGITAL CIRCUIT DESIGNER 07/21/2021 8:07 PM DIGITAL CIRCUIT DESIGNER Radha Solorio MD LAB - URINALYSIS ORD ERABLES [facility] [place] [address] * GLUCOSE - POINT OF CARE (AMB) STL (07/20/2021 4:49 PM DIGITAL CIRCUIT DESIGNER) [facility] Glucose 89 60 - 100 mg/dL [facility] Lot # [id number] [facility] Expiration Date 11/26/22 [facility] QC Verified Yes Yes [facility] Blood BLOOD SPECIMEN / Unknown 07/20/2021 4:49 PM DIGITAL CIRCUIT DESIGNER Olvin Galdamez DO LAB - POINT OF CARE ORDERABLES [facility] [address] [place] [address] * IMAGING RADIOLOGY XRAY RESULTS ORDER (07/20/2021) Only the most recent of7 resultswithin the time period is included. Anatomical Region Laterality Modality Other 07/20/2021 Narrative 07/20/2021 Ordered by an unspecified provider. Scanned Document IMAGING * SARS-COV-2 (COVID-19)+INFLU A+B AG (AMB) POC (01/18/2021 11:56 AM CDT) Only the most recent of2 resultswithin the time period is included. Pathologist [facility] [place] Influenza A Antigen Rapid Negative Negative [facility] Influenza B Antigen Rapid Negative Negative [facility] SARS-CoV-2 Ag Negative Negative [facility] COVID Internal Control Acceptable Acceptable [facility]Y [facility] Lot # [id number] [facility] Expiration Date 07/04/22 [facility] Instrument Serial Number [id number] [facility] Microbiology SPECIMEN FROM NASAL FOSSAE / Unknown 01/18/2021 11:56 AM CDT Narrative [facility] JAZMINE GUAMAN - 01/18/2021 11:57 AM CDT SARS-CoV-2 antigen testing is authorized for use with nasal (Veritor, BinaxNOW, or Galina) or nasopharyngeal (Galina) swabs collected from individuals who are suspected of COVID-19 infection by their healthcare provider within the first five days of onset of symptoms. False-positive SARS-CoV-2 test results are more likely to occur when disease prevalence is low (less than 1%). False-negative SARS-CoV-2 test results are more likely to occur when disease prevalence is high (greater than 10%). This test has been authorized by the Food and Drug administration (FDA)under an Emergency Use Authorization (EUA). This test is only authorized for the duration of time the declaration that circumstances exist justifying the authorization of emergency use of in vitro diagnostic tests for detection of SARS-CoV-2 virus and/or diagnosis of COVID-19 infection under section 564(b)(1) of the Act, 21 U.S.C 360bbb-3 (b)(1), unless the authorization is terminated or revoked sooner. Fact Sheets for this EUA assay are available upon request. Negative results should be treated as presumptive and confirmation with a molecular assay, if necessary, for patient management, may be performed. Negative results do not rule out COVID-19 and should not be used as the sole basis for treatment or patient management decisions, including infection control decisions. Negative results should be considered in the context of a patient's recent exposures, history and the presence of clinical signs and symptoms consistent with COVID-19. Authorizing Provider Result Tomasa Galdamez DO LAB - POINT OF CARE ORDERABLES Performing Organization Address [facility] Co de Phone Number [facility] [address] [place] [address] * STREP A SCREEN - POINT OF CARE (AMB) STL (01/18/2021 11:56 AM CDT) Only the most recent of7 resultswithin the time period is included. Strep A Rapid POCT Negative Negative [facility] Strep A Internal Control Present [facility] Lot # [id number] [facility] Expiration Date 08/07/2021 [facility] Throat ENTIRE THROAT (SURFACE REGION OF NECK) / Unknown 01/18/2021 11:56 AM CDT Olvin Galdamez DO LAB - POINT OF CARE ORDERABLES Performing Organization Address [facility] de Phone Number [facility] [address] [place] [address] * CULTURE STREP GROUP A (01/18/2021 11:55 AM CDT) Only the most recent of2 resultswithin the time period is included. Beta-Strep Culture, Group A Only Negative [facility] ACCOUNT BILL Microbiology ENTIRE THROAT (SURFACE REGION OF NECK) / Unknown 01/18/2021 11:55 AM CDT 01/18/2021 Narrative Resulting Agency Comment Lab Testing performed at: [facility] [address] [facility] [id number] Olvin Galdamez DO LAB - MICROBIOL OGY ORDERABLES Performing Organization Address City/[facility] Co de Phone Number [facility] ACCOUNT BILL [address] [place] [address] * CHAIREZ (SM)+ANATOMY AND PHYSIOLOGY INSTRUCTOR ANTIBODY PANEL (01/05/2021) Blood BLOOD SPECIMEN / Unknown 01/05/2021 Olvin AlbaradoEvanissa DO LAB - SEROLOGY ORDERABLES OTHER LAB * DNA ANTIBODY (01/05/2021) Blood BLOOD SPECIMEN / Unknown 01/05/2021 Olvin Galdamez DO LAB - HEMATOLOG Y ORDERABLES OTHER LAB * CULTURE AEROBIC (01/04/2021 4:38 PM CDT) Only the most recent of4 resultswithin the time period is included. Pathologist [facility] [place] Aerobic Bacterial Culture Final report [facility] ACCOUNT BILL Result 1 [facility] ACCOUNT BILL Comment:Routine respiratory logan Microbiology SPECIMEN FROM TONSIL / Unknown 01/04/2021 4:38 PM CDT 01/04/2021 Narrative Resulting Agency Comment Lab Testing performed at: [facility] [address] [facility] [id number] Olvin AlbaradoEvanissa DO LAB - MICROBIOL OGY ORDERABLES Performing Organization Address City/[facility]/ZIP Co de Phone Number [facility] ACCOUNT BILL [address] [place] [address] * (ABNORMAL) URINALYSIS AUTO - POINT OF CARE (AMB) STL (01/04/2021 3:21 PM CDT) Only the most recent of2 resultswithin the time period is included. Clarity UA POCT cleart [facility] Color UA POCT yellow [facility] Leukocyte UA - Negative [facility] Nitrite UA POCT - Negative [facility] Urobilinogen UA 0.0(A) 0.1 - 1.0 [facility] Protein UA POCT +/- Negative [facility] pH UA 6.0 5.0 - 8.0 pH units [facility] Blood UA - Negative [facility] Specific [place] UA POCT 1.020 1.002 - 1.030 [facility] Ketone UA 1+ Negative [facility] Bilirubin UA POCT - Negative [facility] Glucose UA - Negative [facility] Expiration Date 08/25/21 [facility] Lot # [id number] [facility] QC Verified Yes Yes [facility] Urine URINE / Unknown 01/04/2021 3 :21 PM CDT Olvin Galdamez DO LAB - POINT OF CARE ORDERABLES [facility] [address] [place] [address] * ESTHELA STAINING PATTERNS REFLEXED (09/04/2020 10:40 AM DIGITAL CIRCUIT DESIGNER) Homogeneous Pattern NOT NEEDED [facility] INSURANCE BILL Comment:Ancillary determined the test is not needed. Nucleolar Pattern NOT NEEDED [facility] INSURANCE BILL Comment:Ancillary determined the test is not needed. Speckled Pattern 1:80 [facility] INSURANCE BILL Centromere Pattern NOT NEEDED [facility] INSURANCE BILL Comment:Ancillary determined the test is not needed. Spindle Apparatus Pattern NOT NEEDED [facility] INSURANCE BILL Comment:Ancillary determined the test is not needed. Nuclear Membrane Pattern NOT NEEDED [facility] INSURANCE BILL Comment:Ancillary determined the test is not needed. Midbody Pattern NOT NEEDED [facility] INSURANCE BILL Comment:Ancillary determined the test is not needed. Nuclear Dot Pattern NOT NEEDED [facility] INSURANCE BILL Comment:Ancillary determined the test is not needed. PCNA Pattern NOT NEEDED [facility] INSURANCE BILL Comment:Ancillary determined the test is not needed. Centriole Pattern NOT NEEDED [facility] INSURANCE BILL Comment:Ancillary determined the test is not needed. Note [facility] INSURANCE BILL Comment: A positive SUNNY result may occur in healthy individuals (low titer) or be associated with a variety of diseases. See interpretation chart which is not all inclusive: . Pattern Antigen Detected Suggested Disease Association Homogeneous DNA(ds,ss), SLE - High titers Nucleosomes, Histones Drug-induced SLE Speckled Sm, ANATOMY AND PHYSIOLOGY INSTRUCTOR, SCL-70, SLE,MCTD,PSS (diffuse form), SS-A/SS-B Sjogrens Nucleolar SCL-70, PM-1/SCL High titers Scleroderma, PM/DM Centromere Centromere PSS (limited form) w/Crest syndrome variable Nuclear Dot [id number] Primary Biliary Cirrhosis Nuclear GP210, Primary Biliary Cirrhosis Membrane james A,B,C FASTING 09/04/2020 10:4 0 AM DIGITAL CIRCUIT DESIGNER 09/04/2020 Narrative Resulting Agency Comment Lab Testing performed at: [address] [id number] Miah De Leon DO LAB - PATHOL OGY/CYTOLOGY ORDERABLES Performing Organization Address City/[facility]/ZIP Co de Phone Number [facility] INSURANCE BILL [address] [place] [address] * TSH (09/04/2020 10:40 AM DIGITAL CIRCUIT DESIGNER) Only the most recent of2 resultswithin the time period is included. TSH 3.120 0.450 - 4.500 uIU/mL [facility] INSURANCE BILL Comment:FASTING Blood BLOOD SPECIMEN / Unknown 09/04/2020 10:40 AM DIGITAL CIRCUIT DESIGNER 09/04/2020 Narrative Resulting Agency Comment Lab Testing performed at: [facility] [id number] [facility] [id number] Miah Calderonrymple DO LAB - CHEMIS TRY ORDERABLES Performing Organization Address 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 No evidence of cervical syrinx. *Reading Radiologist: Irma Richter on 08/08/2020 at 8:40 AM Narrative 08/08/2020 8:40 AM DIGITAL CIRCUIT DESIGNER INDICATION: 20-year-old female with Chiari malformation COMPARISON: MRI brain dated 08/30/2019, CT Neck dated 08/26/2019. TECHNICAL: Multiplanar, multisequence imaging of the cervical spine was performed without IV contrast as per departmental protocol. FINDINGS: Again seen is cerebellar tonsillar ectopia, extending up to 5 mm below the level of the foramen magnum. Stable associated crowding at the foramen magnum. The cervical spinal cord maintains normal caliber and signal intensity throughout; no evidence of syrinx. No enlargement of the visualized fourth ventricle. Normal cervical spinal alignment is demonstrated. The vertebrae demonstrate normal configuration and signal intensity. The intervertebral discs are of normal height and signal intensity. The cervical soft tissues are unremarkable in appearance. 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 TECHNICAL: Multiplanar, multisequence imaging of the cervical spine was performed without IV contrast as per departmental protocol. FINDINGS: Again seen is cerebellar tonsillar ectopia, extending up to 5 mm below the level of the foramen magnum. Stable associated crowding at the foramen magnum. The cervical spinal cord maintains normal caliber and signal intensity throughout; no evidence of syrinx. No enlargement of the visualized fourth ventricle. Normal cervical spinal alignment is demonstrated. The vertebrae demonstrate normal configuration and signal intensity. The intervertebral discs are of normal height and signal intensity. The cervical soft tissues are unremarkable in appearance. 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 No evidence of cervical syrinx. *Reading Radiologist: Irma Richter on 08/08/2020 at 8:40 AM Taya Guthrie MD MR ORDERABLES * ETT LINE PERFORMABLE (05/24/2020 1:38 PM CDT) Narrative Annemarie Lugo APRN-CRNA - 05/24/2020 1:38 PM CDT Annemarie Lugo APRN-CRNA 05/24/2020 1:41 PM Endotracheal Tube Placement: Patient Location: OR. Intubation Event Date/Time: 05/24/2020 1:17 PM Procedure: intubation (69770). Procedure Section: Sedation: under general anesthesia. Indications for Airway Management: anesthesia Procedure pretreatments used? No Induction: standard IV Patient Position: sniffing Mask Ventilation: easy. Blade Type: Eddie Blade Size: 3 Laryngoscopy View: grade 1 (full cords) Intubation Adjuncts: stylet Tube: WILFRID tube Placement: oral Tube type: cuff - inflated Tube Size (MM): 7.5 Depth of Insertion (CM): 17 Cuff volume (mL): 1 Cuff Inflated With: air Number of Attempts: 1. Placement Verified By: direct visualization, chest auscultation, bilateral breath sounds, CO2 monitor and CO2 detector Tube secured with: adhesive tape. Dentition unchanged? No Difficult Airway? No. Procedure Start Time: 05/24/2020 1:17 PM. Procedure End Time: 05/24/2020 1:18 PM. Procedure Total Time: 1 minutes. Staff Section Anesthesia Provider: Rg Kaur MD Provider #1: Annemarie Lugo APRN-CECILIA, Performed the procedure. Rg Kaur MD GENERAL ANESTHESIA O RDERABLES * GROSS EXAM PATHOLOGY (STL) (05/24/2020 1:18 PM CDT) Case Report Surgical Pathology Report Case: [id number] Authorizing Provider: Reagan Harding MD Collected: 05/24/2020 01:18 PM Ordering Location: [facility] Received: 05/24/2020 02:36 PM Pathologist: Phil Cruz MD Specimen: Tonsil(s) 05/24/2020 5:50 PM CDT [facility] Final Diagnosis Gross diagnosis: Sawyer tonsils. 05/24/2020 5:50 PM T [facility] Clinical History The patient is a 19-year-old girl with adenotonsillar hypertrophy and chronic tonsillitis. 05/24/2020 5:50 PM CDT [facility] Gross Description Submitted fixed in formalin in one container for gross examination only, labeled with the patient's name, Shawnee Mac, and bilateral tonsils, are two egg-shaped, pink-hernandez palatine tonsils measuring 2.4 x 1.7 x 1.5 cm and 2.5 x 1.5 x 1.2 cm, weighing 4 g combined. On cut surface, the tonsils have a cerebriform yellow-hernandez appearance. No sections are taken. (CT/ns) 05/24/2020 5:50 PM CDT [facility] Embedded Images 05/24/2020 5:50 PM CDT [facility] Pathology/Cytology SPECIMEN FROM TONSIL / Unknown 05/24/2020 1:18 PM CDT 05/24/2020 2:36 PM CDT Comment:Pre-op diagnosis: Chronic tonsillitis and adenoiditis [J35.03] Hypertrophy of tonsils with hypertrophy of adenoids [J35.3] Reagan Harding MD LAB - PATHOLOGY/C YTOLOGY ORDERABLES [facility] [address] [place] [address] * LAB MISC TEST (10/25/2019 2:58 PM DIGITAL CIRCUIT DESIGNER) Test Name GeneDX test code 706 (Slice [id number]) Periodic Fever Slice 11/17/2019 7:36 AM CDT [facility] Test Result See Scanned Report 11/17/2019 7:36 AM CDT [facility] OTHER LAB Blood BLOOD SPECIMEN / Unknown Lab Venipuncture / Unknown 10/25/2019 2:58 PM DIGITAL CIRCUIT DESIGNER 10/25/2019 3:04 PM DIGITAL CIRCUIT DESIGNER Anand Martinez MD LAB SEND OUT Performing Organization Address City/[facility]/ZIP Co de Phone Number [facility] OTHER LAB [facility] [address] [place] [address] * HAEMOPHILUS INFLUENZAE B IGG (09/16/2019 2:27 PM DIGITAL CIRCUIT DESIGNER) Haemophilus influenzae B Antibody IgG 7.28 ug/mL 09/17/2019 7:07 PM DIGITAL CIRCUIT DESIGNER [facility] ([facility]) Comment: NOTE: An anti-Hib level of 0.15 ug/mL is generally accepted as the minimum level for protection. Optimal protection post-vaccination requires a level greater than 1.00 ug/mL. Blood BLOOD SPECIMEN / Unknown Lab Venipuncture / Unknown 09/16/2019 2:27 PM DIGITAL CIRCUIT DESIGNER 09/16/2019 2:43 PM DIGITAL CIRCUIT DESIGNER Narrative [facility] ([facility]) - 09/17/2019 7:07 PM DIGITAL CIRCUIT DESIGNER Performed at: 01 - [address] [id number] Full Stack Web Developer: Lashonda Sin MD, Phone: [phone] Anand Martinez MD LAB - SEROLOGY ORDER PATRICIA [facility] ([facility]) [address] [place] [address] * COMPLEMENT ALTERNATE AH50 (09/16/2019 2:27 PM DIGITAL CIRCUIT DESIGNER) Alternative Pathway AH50 155 77 - 159 Units/mL 10/05/2019 10:09 AM DIGITAL CIRCUIT DESIGNER [facility] ([facility]) Comment: This assay is used for clinical purposes and was developed, and its performance characteristics determined, by [facility] at [facility]. It has not been cleared or approved by the U.S. Food and Drug Administration. The FDA has determined that such clearance or approval is not necessary. This laboratory is certified under the Clinical Laboratory Improvement Amendments of 1988 (CLIA-88) as qualified to perform high complexity clinical laboratory testing. Blood BLOOD SPECIMEN / Unknown Lab Venipuncture / Unknown 09/16/2019 2:27 PM DIGITAL CIRCUIT DESIGNER 09/16/2019 2:43 PM DIGITAL CIRCUIT DESIGNER Narrative [facility] ([facility]) - 10/05/2019 10:09 AM DIGITAL CIRCUIT DESIGNER Performed at: [address] [place] [id number] Full Stack Web Developer: Humberto Winters Dr, Phone: [phone] Anand Martinez MD LAB - SEROLOGY ORDER PATRICIA [facility] ([facility]) [address] [place] [address] * CYTOKINE PANEL 12 (09/16/2019 2:27 PM DIGITAL CIRCUIT DESIGNER) IL-2 <5 <=12 pg/mL 09/20/2019 3:41 PM DIGITAL CIRCUIT DESIGNER [facility] ([facility]) IL-2 Receptor (Jennifer) 685 <=1033 pg/mL 09/20/2019 3:41 PM DIGITAL CIRCUIT DESIGNER [facility] ([facility]) IL-12 <5 <=6 pg/mL 09/20/2019 3:41 PM DIGITAL CIRCUIT DESIGNER [facility] ([facility]) Interferon Gamma <5 <=5 pg/mL 09/20/19 20 3:41 PM DIGITAL CIRCUIT DESIGNER [facility] ([facility]) IL-4 <5 <=5 pg/mL 09/20/2019 3:41 PM DIGITAL CIRCUIT DESIGNER [facility] ([facility]) IL-5 <5 <=5 pg/mL 09/20/2019 3:41 PM DIGITAL CIRCUIT DESIGNER [facility] ([facility]) IL-10 <5 <=18 pg/mL 09/20/2019 3:41 PM DIGITAL CIRCUIT DESIGNER [facility] ([facility]) IL-13 <5 <=5 pg/mL 09/20/2019 3:41 PM DIGITAL CIRCUIT DESIGNER [facility] ([facility]) IL-17 <5 <=13 pg/mL 09/20/2019 3:41 PM DIGITAL CIRCUIT DESIGNER [facility] ([facility]) IL-1 Beta <5 <=36 pg/mL 09/20/2019 3:41 PM DIGITAL CIRCUIT DESIGNER [facility] ([facility]) IL-6 <5 <=5 pg/mL 09/20/2019 3:41 PM DIGITAL CIRCUIT DESIGNER [facility] ([facility]) IL-8 <5 <=5 pg/mL 09/20/2019 3:41 PM DIGITAL CIRCUIT DESIGNER [facility] ([facility]) Tumor Necrosis Factor Alpha <5 <=22 pg/mL 09/20/2019 3:41 PM DIGITAL CIRCUIT DESIGNER [facility] ([facility]) Comment: INTERPRETIVE INFORMATION: Cytokines Results are used to understand the pathophysiology of immune, infectious, or inflammatory disorders, or may be used for research purposes. Test developed and characteristics determined by [employer]. See Compliance Statement B: Personal Estate Manager/ Performed by [employer], [address] [place] [address] www.Personal Estate Manager, David [address] MD, Lab. Director Blood BLOOD SPECIMEN / Unknown Lab Venipuncture / Unknown 09/16/2019 2:27 PM DIGITAL CIRCUIT DESIGNER 09/16/2019 2:43 PM DIGITAL CIRCUIT DESIGNER Anand Martinez MD LAB - CHEMISTRY ROGERIO LAM [facility] [employer] [facility]) [address] * (ABNORMAL) CYTOMEGALOVIRUS ANTIBODY IGM BLOOD (09/16/2019 2:27 PM DIGITAL CIRCUIT DESIGNER) Only the most recent of2 resultswithin the time period is included. Cytomegalovirus Antibody IgM 37.9(H) 0.0 - 29.9 AU/mL 09/17/2019 9:10 AM DIGITAL CIRCUIT DESIGNER [facility] ([facility]) Comment: Negative <30.0 Equivocal 30.0 - 34.9 Positive >34.9 A positive result is generally indicative of acute infection, reactivation or persistent IgM production. Blood BLOOD SPECIMEN / Unknown Lab Venipuncture / Unknown 09/16/2019 2:27 PM DIGITAL CIRCUIT DESIGNER 09/16/2019 2:43 PM DIGITAL CIRCUIT DESIGNER Narrative [facility] ([facility]) - 09/17/2019 9:10 AM DIGITAL CIRCUIT DESIGNER Performed at: [address] [place] [id number] Full Stack Web Developer: Bill Todd PhD, Phone: [phone] Rogers Luu MD LAB - CHEMISTRY OR DERABLES Performing Organization Address [facility] de Phone Number [facility] ([facility]) [address] [place] [address] * CYTOMEGALOVIRUS ANTIBODY IGG BLOOD (09/16/2019 2:27 PM DIGITAL CIRCUIT DESIGNER) Only the most recent of2 resultswithin the time period is included. [facility] Cytomegalovirus Antibody IgG <0.60 0.00 - 0.59 U/mL 09/17/2019 9:10 AM DIGITAL CIRCUIT DESIGNER [facility] ([facility]) Comment: Negative <0.60 Equivocal 0.60 - 0.69 Positive >0.69 Blood BLOOD SPECIMEN / Unknown Lab Venipuncture / Unknown 09/16/2019 2:27 PM DIGITAL CIRCUIT DESIGNER 09/16/2019 2:43 PM DIGITAL CIRCUIT DESIGNER Narrative [facility] ([facility]) - 09/17/2019 9:10 AM DIGITAL CIRCUIT DESIGNER Performed at: [address] [place] [id number] Full Stack Web Developer: Bill Todd PhD, Phone: [phone] Rogers Luu MD LAB - CHEMISTRY OR DERABLES Performing Organization Address [facility] de Phone Number [facility] ([facility]) [address] [place] [address] * (ABNORMAL) KOLTON-PADRON VIRUS PANEL (09/16/2019 2:27 PM DIGITAL CIRCUIT DESIGNER) Only the most recent of2 resultswithin the time period is included. [facility] Kolton-Padron Viral Capsid Antigen Antibody IgM <36.0 0.0 - 35.9 U/mL 09/17/2019 5:07 PM DIGITAL CIRCUIT DESIGNER [facility] ([facility]) Comment: Negative <36.0 Equivocal 36.0 - 43.9 Positive >43.9 Kolton-Padron Virus Early Antigen Antibody IgG <9.0 0.0 - 8.9 U/mL 09/17/2019 5:07 PM DIGITAL CIRCUIT DESIGNER [facility] ([facility]) Comment: Negative < 9.0 Equivocal 9.0 - 10.9 Positive >10.9 Kolton-Padron Viral Capsid Antigen Antibody IgG 128.0(H) 0.0 - 17.9 U/mL 09/17/2019 5:07 PM DIGITAL CIRCUIT DESIGNER [facility] ([facility]) Comment: Negative <18.0 Equivocal 18.0 - 21.9 Positive >21.9 Kolton-Padron Virus Antibody IgG Nuclear Antigen 130.0(H) 0.0 - 17.9 U/mL 09/17/2019 5:07 PM DIGITAL CIRCUIT DESIGNER [facility] ([facility]) Comment: Negative <18.0 Equivocal 18.0 - 21.9 Positive >21.9 Interpretation Comment 09/17/2019 5:07 PM DIGITAL CIRCUIT DESIGNER [facility] ([facility]) Comment: EBV Interpretation Chart Interpretation EBV-IgM EA(D)-IgG VCA-IgG EBNA-IgG EBV Seronegative - - - - Early Phase + - - - Acute Primary + +or- + - Infection Convalescence/Past - +or- + + Infection Reactivated +or- +or- + + Infection + Antibody Present - Antibody Absent Effective September 13, 2019, [id number] EBV Acute Infection Antibodies and [id number] EBV, Chronic/Active Infection will be made non-orderable. [facility] offers order code [id number] EBV Antibody Profile. Blood BLOOD SPECIMEN / Unknown Lab Venipuncture / Unknown 09/16/2019 2:27 PM DIGITAL CIRCUIT DESIGNER 09/16/2019 2:43 PM DIGITAL CIRCUIT DESIGNER N[facility]ative [facility]) - 09/17/2019 5:07 PM DIGITAL CIRCUIT DESIGNER Performed at: 01 - [address] [id number] Full Stack Web Developer: Bill Todd PhD, Phone: [phone] Rogers Luu MD LAB - CHEMISTRY OR DERABLES [facility] ([facility]) [address] [place] [address] * COMPLEMENT TOTAL (09/16/2019 2:27 PM DIGITAL CIRCUIT DESIGNER) Only the most recent of2 resultswithin the time period is included. Pathologist [facility] Complement Total CH50 >60 40 - 364259 U/mL 09/17/2019 1:08 PM DIGITAL CIRCUIT DESIGNER [facility] ([facility]) Blood BLOOD SPECIMEN / Unknown Lab Venipuncture / Unknown 09/16/2019 2:27 PM DIGITAL CIRCUIT DESIGNER 09/16/2019 2:43 PM DIGITAL CIRCUIT DESIGNER Narrative [facility] ([facility]) - 09/17/2019 1:08 PM DIGITAL CIRCUIT DESIGNER Performed at: [facility] [address] [place], [place] [id number] Full Stack Web Developer: Bill Todd PhD, Phone: [phone] Anand Martinez MD LAB - CHEMISTRY ROGERIO LAM [facility] ([facility]) [address] [place] [address] * IMMUNOGLOBULINS IGG/IGM/IGA PANEL (09/16/2019 2:27 PM DIGITAL CIRCUIT DESIGNER) [facility] IgA 241 65 - 421 mg/dL 09/16/2019 3:16 PM DIGITAL CIRCUIT DESIGNER [facility] IgG 1,047 552-1,631 mg/dL 09/16/2019 3:16 PM DIGITAL CIRCUIT DESIGNER [facility] IgM 67 33 - 293 mg/dL 09/16/2019 3:16 PM DIGITAL CIRCUIT DESIGNER [facility] Blood BLOOD SPECIMEN / Unknown Lab Venipuncture / Unknown 09/16/2019 2:27 PM DIGITAL CIRCUIT DESIGNER 09/16/2019 2:43 PM DIGITAL CIRCUIT DESIGNER Anand Martinez MD LAB - CHEMISTRY ROGERIO LAM [facility] [address] [place] [address] * IGE BLOOD (09/16/2019 2:27 PM DIGITAL CIRCUIT DESIGNER) [facility] IgE Total <25.0 <100 IU/mL 09/16/2019 3:16 PM DIGITAL CIRCUIT DESIGNER [facility] Blood BLOOD SPECIMEN / Unknown Lab Venipuncture / Unknown 09/16/2019 2:27 PM DIGITAL CIRCUIT DESIGNER 09/16/2019 2:43 PM DIGITAL CIRCUIT DESIGNER Anand Martinez MD LAB - CHEMISTRY ROGERIO Jacobs Organization Address City/State/ZIP Co de Phone Number [facility] [place] [address] * RESPIRATORY PATHOGEN PANEL BY PCR (09/16/2019 12:49 PM DIGITAL CIRCUIT DESIGNER) Only the most recent of2 resultswithin the time period is included. Adenovirus PCR Not detected Not detected, Invalid, Indeterminate 09/16/2019 9:07 PM DIGITAL CIRCUIT DESIGNER [facility]CRO[facility] Coronavirus PCR Not detected Not detected, Invalid, Indeterminate 09/16/2019 9:07 PM [facility] Human Metapneumovirus PCR Not detected Not detected, Invalid, Indeterminate 09/16/2019 9:07 PM [facility] Human Rhinovirus/Entero virus PCR Not detected Not detected, Invalid, Indeterminate 09/16/2019 9:07 PM [facility] Influenza A PCR Not detected Not detected, Equivocal, Invalid, Indeterminate 09/16/2019 9:07 PM [facility] Influenza B PCR Not detected Not detected, Invalid, Indeterminate 09/16/2019 9:07 PM DIGITAL CIRCUIT DESIGNER [facility]CRO[facility] Parainfluenza Virus 1 PCR Not detected Not detected, Invalid, Indeterminate 09/16/2019 9:07 PM [facility] Parainfluenza Virus 2 PCR Not detected Not detected, Invalid, Indeterminate 09/16/2019 9:07 PM [facility] Parainfluenza Virus 3 PCR Not detected Not detected, Invalid, Indeterminate 09/16/2019 9:07 PM [facility] Parainfluenza Virus 4 PCR Not detected Not detected, Invalid, Indeterminate 09/16/2019 9:07 PM DIGITAL CIRCUIT DESIGNER [facility] MICROBIOLOGY Respiratory Syncytial Virus PCR Not detected Not detected, Invalid, Indeterminate 09/16/2019 9:07 PM DIGITAL CIRCUIT DESIGNER [facility] MICROBIOLOGY Bordetella pertussis PCR Not detected Not detected, Invalid 09/16/2019 9:07 PM [facility]CRO[facility] Chlamydia pneumoniae PCR Not detected Not detected, Invalid, Indeterminate 09/16/2019 9:07 PM DIGITAL CIRCUIT DESIGNER [facility] MICROBIOLOGY Mycoplasma pneumoniae PCR Not detected Not detected, Invalid, Indeterminate 09/16/2019 9:07 PM [facility] MICROBIOLOG[facility] Microbiology SPECIMEN FROM NASOPHARYNGEAL STRUCTURE / Unknown Collection / Unknown 09/16/2019 12:49 PM DIGITAL CIRCUIT DESIGNER 09/16/2019 1:05 PM DIGITAL CIRCUIT DESIGNER Anand Martinez MD LAB - MICROBIOLOGY O RDERABLES [facility] MICROBIOLOGY [address] [place] [address], [facility] [phone] * MRI BRAIN WWO CONTRAST (08/30/2019 4:00 PM DIGITAL CIRCUIT DESIGNER) Only the most recent of2 resultswithin the time period is included. 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 Reading Radiologist: Bruno Ramirez MD on 08/31/2019 at 6:13 AM Narrative 08/31/2019 6:13 AM DIGITAL CIRCUIT DESIGNER EXAMINATION: Magnetic resonance imaging (MRI) of the brain without and with contrast HISTORY: Compression of brain TECHNIQUE: MRI of the brain was performed without and with 13 mL dotarem contrast according to standard protocol. COMPARISON: MRI brain without and with contrast 10/27/2014 FINDINGS: Supratentorial and infratentorial brain parenchyma has normal signal. No diffusion restriction to suggest recent ischemic infarct or cytotoxic edema. No abnormal susceptibility to suspect intracranial bleed. No abnormal intracranial enhancement. Myelination is normal for patient's age. Usual vascular flow-voids are present. Up to 5 mm cerebellar tonsillar ectopia. Marginally pointed configuration of cerebellar tonsil at right side. Very mild crowding at foramen magnum level, with clearly preserved CSF (with preserved CSF pulsation artifact) anterior to medulla and imaged cervical cord. No significant mass effect or midline shift. Ventricles are normal in size, shape, and configuration. Noted prominent perivascular space at posterior margin of right lentiform nucleus. Procedure Note Bruno Ramirez MD - 08/31/2019 EXAMINATION: Magnetic resonance imaging (MRI) of the brain without and with contrast HISTORY: Compression of brain TECHNIQUE: MRI of the brain was performed without and with 13 mL dotarem contrast according to standard protocol. COMPARISON: MRI brain without and with contrast 10/27/2014 FINDINGS: Supratentorial and infratentorial brain parenchyma has normal signal. No diffusion restriction to suggest recent ischemic infarct or cytotoxic edema. No abnormal susceptibility to suspect intracranial bleed. No abnormal intracranial enhancement. Myelination is normal for patient's age. Usual vascular flow-voids are present. Up to 5 mm cerebellar tonsillar ectopia. Marginally pointed configuration of cerebellar tonsil at right side. Very mild crowding at foramen magnum level, with clearly preserved CSF (with preserved CSF pulsation artifact) anterior to medulla and imaged cervical cord. No significant mass effect or midline shift. Ventricles are normal in size, shape, and configuration. Noted prominent perivascular space at posterior margin of right lentiform nucleus. 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 Reading Radiologist: Bruno Ramirez MD on 08/31/2019 at 6:13 AM Joana Ambrose MD MR ORDERABLES * LYME DISEASE AB REFLEX WB (08/16/2019 3:47 PM DIGITAL CIRCUIT DESIGNER) [facility] Lyme Disease Antibody IgG/IgM <0.91 0.00 - 0.90 ISR 08/17/2019 3:08 PM DIGITAL CIRCUIT DESIGNER [facility] ([facility]) Comment: Negative <0.91 Equivocal 0.91 - 1.09 Positive >1.09 Blood BLOOD SPECIMEN / Unknown Lab Venipuncture / Unknown 08/16/2019 3:47 PM DIGITAL CIRCUIT DESIGNER 08/16/2019 4:19 PM DIGITAL CIRCUIT DESIGNER Narrative [facility] ([facility]) - 08/17/2019 3:08 PM DIGITAL CIRCUIT DESIGNER Performed at: 01 - [address] [id number] Full Stack Web Developer: Bill Todd PhD, Phone: [phone] Sanket Rasmussen MD LAB - SEROLOGY OR DERABLES [facility] ([facility]) [address] [place] [address] * FUAD BLOOD (08/16/2019 3:47 PM DIGITAL CIRCUIT DESIGNER) [facility] Angiotensin-Con verting Enzyme 27 14 - 82 U/L 08/17/2019 2:09 PM DIGITAL CIRCUIT DESIGNER [facility] Blood BLOOD SPECIMEN / Unknown Lab Venipuncture / Unknown 08/16/2019 3:47 PM DIGITAL CIRCUIT DESIGNER 08/16/2019 4:19 PM DIGITAL CIRCUIT DESIGNER Narrative [facility] ([facility]) - 08/17/2019 2:09 PM DIGITAL CIRCUIT DESIGNER Performed at: [address] [id number] Full Stack Web Developer: Bill Todd PhD, Phone: [phone] Des Montero MD LAB - CHEMISTRY ROGERIO LAM [facility] ([facility]) [address] [place] [address] * SACCHAROMYCES ANTIBODY (ASCA) IGG/IGA PANEL (08/16/2019 3:47 PM DIGITAL CIRCUIT DESIGNER) Pathologist [facility] [place] Saccharomyces cerevisiae Antibody IgG <20.0 0.0 - 24.9 Units 08/18/2019 12:[address] [facility]) Comment: Negative <20.0 Equivocal 20.1 - 24.9 Positive >or= 25.0 Saccharomyces cerevisiae Antibody IgA <20.0 0.0 - 24.9 Units 08/18/2019 12:[address] [facility]) Comment: Negative <20.0 Equivocal 20.1 - 24.9 Positive >or= 25.0 IgA and IgG antibody testing for S. cerevisiae is useful adjunct testing for differentiating Crohn's disease and ulcerative colitis. Close to 80% of Crohn's disease patients are positive for either IgA or IgG. In ulcerative colitis, less than 15% are positive for IgG and less than 2% are positive for IgA. Fewer than 5% are positive for either IgG or IgA antibody, and no healthy controls had antibody for both. Blood BLOOD SPECIMEN / Unknown Lab Venipuncture / Unknown 08/16/2019 3:47 PM DIGITAL CIRCUIT DESIGNER 08/16/2019 4:19 PM DIGITAL CIRCUIT DESIGNER Narrative [facility]) - 08/18/2019 12:09 PM DIGITAL CIRCUIT DESIGNER Performed at: [address] [id number] Full Stack Web Developer: Lashonda Sin MD, Phone: [phone] Des Montero MD LAB - SEROLOGY ORDER PATRICIA Performing Organization Address City/[facility]/ZIP Co de Phone Number [facility]) [address] [place] [address] * BRUCELLA ANTIBODY IGG (08/07/2019 9:34 AM DIGITAL CIRCUIT DESIGNER) Pathologist [facility] [place] Brucella Antibody IgG Negative Negative 08/10/2019 3:08 PM DIGITAL CIRCUIT DESIGNER [facility] ([facility]) Comment: This assay detects antibodies to Brucella abortus, melitensis, and suis. Blood BLOOD SPECIMEN / Unknown Lab Venipuncture / Unknown 08/07/2019 9:34 AM DIGITAL CIRCUIT DESIGNER 08/07/2019 9:52 AM DIGITAL CIRCUIT DESIGNER Narrative [facility] ([facility]) - 08/10/2019 3:08 PM DIGITAL CIRCUIT DESIGNER Performed at: - [facility] [id number] Full Stack Web Developer: Lashonda Sin MD, Phone: [phone] Sanket Rasmussen MD LAB - SEROLOGY OR DERABLES Performing Organization Address City/[facility] Co de Phone Number [facility]) [address] [place] [address] * Q FEVER ANTIBODY IGG (08/07/2019 9:34 AM DIGITAL CIRCUIT DESIGNER) [facility] Q Fever Antibody IgG Phase I Negative Neg:<1:16 08/10/2019 5:07 PM DIGITAL CIRCUIT DESIGNER [facility] ([facility]) Q Fever Antibody IgG Phase II Negative Neg:<1:16 08/10/2019 5:07 PM DIGITAL CIRCUIT DESIGNER [facility] ([facility]) Comment: Note: Four-fold increases between paired sera are recommended to demonstrate recent infection. Blood BLOOD SPECIMEN / Unknown Lab Venipuncture / Unknown 08/07/2019 9:34 AM DIGITAL CIRCUIT DESIGNER 08/07/2019 9:52 AM DIGITAL CIRCUIT DESIGNER Narrative [facility] ([facility]) - 08/10/2019 5:07 PM DIGITAL CIRCUIT DESIGNER Performed at: - [facility] [id number] Full Stack Web Developer: Lashonda Sin MD, Phone: [phone] Sanket Rasmussen MD LAB - SEROLOGY OR DERABLES Performing Organization Address [facility] Co de Phone Number [facility]) [address] [place] [address] * TULARENSIS ANTIBODY IGG/IGM PANEL (08/07/2019 9:34 AM DIGITAL CIRCUIT DESIGNER) [facility] Francisella tularensis Antibody IgG Negative Negative 08/13/2019 10:09 AM DIGITAL CIRCUIT DESIGNER [facility] ([facility]) Francisella tularensis Antibody IgM Negative Negative 08/13/2019 10:09 AM DIGITAL CIRCUIT DESIGNER [facility] ([facility]) Comment: The performance characteristics of the listed assays were validated by [facility]. The US FDA has not approved or cleared these test. The results of these assays can be used for clinical diagnosis without FDA approval. [facility]. is a CLIA certified, CAP accredited laboratory for performing high complexity assays such as these. Testing Performed at: [facility] [address] Blood BLOOD SPECIMEN / Unknown Lab Venipuncture / Unknown 08/07/2019 9:34 AM DIGITAL CIRCUIT DESIGNER 08/07/2019 9:52 AM DIGITAL CIRCUIT DESIGNER Narrative [facility] ([facility]) - 08/13/2019 10:09 AM DIGITAL CIRCUIT DESIGNER Performed at: - [facility] [address] [id number] Full Stack Web Developer: Kamila Nunez MD, Phone: [phone] Sanket Rasmussen MD LAB - SEROLOGY OR DERABLES Performing Organization Address [facility] Co de Phone Number [facility]) [address] [place] [address] * QUANTIFERON-TB GOLD PLUS 4-TUBE (08/07/2019 9:34 AM DIGITAL CIRCUIT DESIGNER) [facility] QuantiFERON Criteria Comment 08/11/2019 5:07 PM DIGITAL CIRCUIT DESIGNER [facility] ([facility]) Comment: The QuantiFERON-TB Gold Plus result is determined by subtracting the Nil value from either TB antigen (Ag) tube. The mitogen tube serves as a control for the test. QuantiFERON TB1 Ag Value 0.03 IU/mL 08/11/2019 5:07 PM DIGITAL CIRCUIT DESIGNER [facility] ([facility]) QuantiFERON TB2 Ag Value 0.02 IU/mL 08/11/2019 5:07 PM DIGITAL CIRCUIT DESIGNER [facility] ([facility]) QuantiFERON Nil Value 0.02 IU/mL 08/11/2019 5:[address] [facility]) QuantiFERON Mitogen Value >10.00 IU/mL 08/11/2019 5:07 PM [facility] ([facility]) QuantiFERON-TB Gold Plus Negative Negative 08/11/2019 5:07 PM [facility] ([facility]) Comment: The specimen received for QuantiFERON testing was incubated by the ordering institution. Specific procedures outlined in our Directory of Services and in the package insert for the QuantiFERON Gold (In Tube) test must be followed to enable for proper stimulation of cells for the production of interferon gamma. Blood BLOOD SPECIMEN / Unknown Lab Venipuncture / Unknown 08/07/2019 9:34 AM DIGITAL CIRCUIT DESIGNER 08/07/2019 9:52 AM DIGITAL CIRCUIT DESIGNER Narrative [facility] ([facility]) - 08/11/2019 5:07 PM DIGITAL CIRCUIT DESIGNER Performed at: [address] [place] [id number] Full Stack Web Developer: Bill Todd PhD, Phone: [phone] Sanket Rasmussen MD LAB - CHEMISTRY O RDERABLES [facility] ([facility]) [address] [place] [address] * BLASTOMYCES DERMATITIDIS AB BY ID+CF (08/07/2019 9:34 AM DIGITAL CIRCUIT DESIGNER) Blastomyces dermatiditis Identification Negative Negative 08/10/2019 11:06 PM [facility] ([facility]) Blastomyces dermatitidis Complement Fixation Negative Neg:<1:2 08/10/2019 11:06 PM [facility] ([facility]) Comment: A CF titer of =>1:8 if accompanied by a positive ID band is suggestive of recent and/or active infection. This test was developed and its performance characteristics determined by [employer]. It has not been cleared or approved by the U.S. Food and Drug Administration. The FDA has determined that such clearance or approval is not necessary. Blood BLOOD SPECIMEN / Unknown Lab Venipuncture / Unknown 08/07/2019 9:34 AM DIGITAL CIRCUIT DESIGNER 08/07/2019 9:52 AM DIGITAL CIRCUIT DESIGNER Narrative [facility] ([facility]) - 08/10/2019 11:06 PM DIGITAL CIRCUIT DESIGNER Performed at: [address] [place] [id number] Full Stack Web Developer: Lashonda Sin MD, Phone: [phone] Sanket Rasmussen MD LAB - SEROLOGY OR DERABLES [facility] ([facility]) [address] [place] [address] * ANCA VASCULITIS PANEL (08/07/2019 9:34 AM DIGITAL CIRCUIT DESIGNER) Pathologist [facility] [place] Anti-myeloperoxid ase (MPO) Antibody <9.0 0.0 - 9.0 U/mL 08/11/2019 3:08 PM DIGITAL CIRCUIT DESIGNER [facility] ([facility]) Anti-proteinase 3 (UT-3) Abs <3.5 0.0 - 3.5 U/mL 08/11/2019 3:08 PM DIGITAL CIRCUIT DESIGNER [facility] ([facility]) Cytoplasmic (C-ANCA) <1:20 Neg:<1:20 titer 08/11/2019 3:08 PM DIGITAL CIRCUIT DESIGNER [facility] ([facility]) p-ANCA Titer <1:20 Neg:<1:20 titer 08/11/2019 3:08 PM DIGITAL CIRCUIT DESIGNER [facility] ([facility]) Comment: The presence of positive fluorescence exhibiting P-ANCA or C-ANCA patterns alone is not specific for the diagnosis of Soumya's Granulomatosis (WG) or microscopic polyangiitis. Decisions about treatment should not be based solely on ANCA IFA results. The International ANCA Group Consensus recommends follow up testing of positive sera with both UT-3 and MPO-ANCA enzyme immunoassays. As many as 5% serum samples are positive only by EIA. Ref. AM J Clin Pathol 1999;111:507-513. Atypical p-ANCA Titer <1:20 Neg:<1:20 titer 08/11/2019 3:[address] [facility] ([facility]) Comment: The atypical pANCA pattern has been observed in a significant percentage of patients with ulcerative colitis, primary sclerosing cholangitis and autoimmune hepatitis. Blood BLOOD SPECIMEN / Unknown Lab Venipuncture / Unknown 08/07/2019 9:34 AM DIGITAL CIRCUIT DESIGNER 08/07/2019 9:52 AM DIGITAL CIRCUIT DESIGNER Narrative [facility] ([facility]) - 08/11/2019 3:08 PM DIGITAL CIRCUIT DESIGNER Performed at: - [facility] [address] [id number] Full Stack Web Developer: Lashonda Sin MD, Phone: [phone] Performed at: 02 - [facility] [place] [address] [place], [place] [id number] Full Stack Web Developer: Bill Todd PhD, Phone: [phone] Sanket Rasmussen MD LAB - CHEMISTRY O RDERABLES Performing Organization Address City/[facility] Co de Phone Number [facility] ([facility]) [address] [place] [address] * HISTOPLASMA ANTIBODY PANEL (08/07/2019 9:34 AM DIGITAL CIRCUIT DESIGNER) Histoplasma Mycelia CF Antibody <1:8 <1:8 08/10/2019 4:01 PM DIGITAL CIRCUIT DESIGNER [facility] ([facility]) Histoplasma yeast CF Antibody <1:8 <1:8 08/10/2019 4:01 PM DIGITAL CIRCUIT DESIGNER [facility] ([facility]) Comment: INTERPRETIVE INFORMATION: Histoplasma Antibodies by Complement Fixation (CF) An antibody titer greater than or equal to 1:8 is generally considered presumptive evidence of histoplasmosis. Greater than 1:32 or rising titers indicate strong presumptive evidence of histoplasmosis. The yeast phase is regarded as more sensitive. Approximate 90-95 percent of cases have positive titers to one or both antigens. Titers to mycelial antigen are higher in chronic infection. Cross reactions, usually at lower titers, may occur with other fungal disease. Rising titers suggest progression of infection. Skin tests in individuals previously exposed may cause titer elevation in 17-20 percent of cases. Performed by [employer], [address] [place] [id number] www.Personal Estate Manager, David St MD, Lab. Director Blood BLOOD SPECIMEN / Unknown Lab Venipuncture / Unknown 08/07/2019 9:34 AM DIGITAL CIRCUIT DESIGNER 08/07/2019 9:52 AM DIGITAL CIRCUIT DESIGNER Sanket Rasmussen MD LAB - SEROLOGY OR DERABLES Performing Organization Address City/[facility]/ZIP Co de Phone Number [employer] [facility]) [address] [place], [place] [address] * HISTOPLASMA ANTIGEN BLOOD (08/07/2019 9:34 AM DIGITAL CIRCUIT DESIGNER) Histoplasma gal'viviana Antigen <0.5 <0.5 ng/mL 08/09/2019 6:07 PM DIGITAL CIRCUIT DESIGNER [facility] ([facility]) Disclaimer Comment 08/09/2019 6:07 PM DIGITAL CIRCUIT DESIGNER [facility] ([facility]) Comment: This test was developed and its performance characteristics determined by [facility]. It has not been cleared or approved by the Food and Drug Administration. Blood BLOOD SPECIMEN / Unknown Lab Venipuncture / Unknown 08/07/2019 9:34 AM DIGITAL CIRCUIT DESIGNER 08/07/2019 9:52 AM DIGITAL CIRCUIT DESIGNER Narrative [facility] ([facility]) - 08/09/2019 6:07 PM DIGITAL CIRCUIT DESIGNER Performed at: - [address] [id number] Full Stack Web Developer: Lashonda Sin MD, Phone: [phone] Sanket Rasmussen MD LAB - CHEMISTRY O RDERABLES [facility] ([facility]) [address] [place] [address] * CRYPTOCOCCUS ANTIGEN BLOOD (08/07/2019 9:34 AM DIGITAL CIRCUIT DESIGNER) Cryptococcus Antigen Negative Negative 08/07/2019 1:44 PM DIGITAL CIRCUIT DESIGNER [facility] Blood BLOOD SPECIMEN / Unknown Lab Venipuncture / Unknown 08/07/2019 9:34 AM DIGITAL CIRCUIT DESIGNER 08/07/2019 9:52 AM DIGITAL CIRCUIT DESIGNER Sanket Rasmussen MD LAB - SEROLOGY OR DERABLES [facility] [address] [place] [address], [facility] [phone] * FIBRILLARIN (U3 ANATOMY AND PHYSIOLOGY INSTRUCTOR) (08/02/2019 2:47 PM DIGITAL CIRCUIT DESIGNER) Fibrillarin (U3 ANATOMY AND PHYSIOLOGY INSTRUCTOR) Comment 08/09/2019 2:08 PM DIGITAL CIRCUIT DESIGNER [facility] ([facility]) Comment: Negative Reference Range: Qualitative test Negative: normal Positive: abnormal The presence of anti-U3 ANATOMY AND PHYSIOLOGY INSTRUCTOR autoantibodies in systemic sclerosis (SSc) identifies a well-defined clinical subset of the disease. This antibody should be considered in and/or male SSc patients who have positive SUNNY with pure nucleolar staining. SSc patients with anti-U3 ANATOMY AND PHYSIOLOGY INSTRUCTOR are younger and have more rapid progression of disease. Patients with anti-U3 ANATOMY AND PHYSIOLOGY INSTRUCTOR have a significantly greater frequency of internal organ involvement, skeletal muscle involvement and pulmonary hypertension. Miley Varela., Tip Welch., Ousmane Garrett, Lucia Guardado V., and Pura Charles. (2009). Anti-U3 ANATOMY AND PHYSIOLOGY INSTRUCTOR autoantibodies in systemic sclerosis. Arthritis and Rheumatism,60(4), 4619-2745. *This test has been developed and performance parameters have been validated by [employer], [employer]. This test has not been approved by the U.S. Food and Drug Administration (FDA); however, US FDA approval is not required for clinical use. It is not intended that clinical diagnosis and patient management decisions be made using these results alone. This test has been validated using serum samples. The primary care physician has not determined the efficacy of this test when performed on CSF, plasma, joint or pleural fluid specimens. The performance characteristics of this test were determined by [employer] Blood BLOOD SPECIMEN / Unknown Lab Venipuncture / Unknown 08/02/2019 2:47 PM DIGITAL CIRCUIT DESIGNER 08/02/2019 2:51 PM DIGITAL CIRCUIT DESIGNER Narrative [facility] ([facility]) - 08/09/2019 2:08 PM DIGITAL CIRCUIT DESIGNER Performed at: [facility] [employer] [address] [facility] [address], [place] [id number] Full Stack Web Developer: Victor Manuel Duke PhD, Phone: [phone] Yaquelin Barrios MD LAB - CHEMISTRY OR DERABLES [facility] ([facility]) [address] [place] [address] * (ABNORMAL) THYROID PEROXIDASE ANTIBODY (08/02/2019 2:47 PM DIGITAL CIRCUIT DESIGNER) Thyroid Peroxidase TPO Antibody 83(H) 0 - 26 IU/mL 08/03/2019 5:07 AM DIGITAL CIRCUIT DESIGNER [facility] ([facility]) Blood BLOOD SPECIMEN / Unknown Lab Venipuncture / Unknown 08/02/2019 2:47 PM DIGITAL CIRCUIT DESIGNER 08/02/2019 2:51 PM DIGITAL CIRCUIT DESIGNER N[facility]ative [facility]) - 08/03/2019 5:07 AM DIGITAL CIRCUIT DESIGNER Performed at: [address] [place] [id number] Full Stack Web Developer: Bill Todd PhD, Phone: [phone] Yaquelin Barrios MD LAB - CHEMISTRY OR DERABLES Performing Organization Address [facility] de Phone Number [facility] ([facility]) [address] [place] [address] * (ABNORMAL) THYROGLOBULIN ANTIBODY (08/02/2019 2:47 PM DIGITAL CIRCUIT DESIGNER) Thyroglobulin Antibody 2.3(H) 0.0 - 0.9 IU/mL 08/03/2019 2:09 PM DIGITAL CIRCUIT DESIGNER [facility] ([facility]) Comment:Thyroglobulin Antibo dy measured by Dandre Rodriguez Method[employer] Blood BLOOD SPECIMEN / Unknown Lab Venipuncture / Unknown 08/02/2019 2:47 PM DIGITAL CIRCUIT DESIGNER 08/02/2019 2:51 PM DIGITAL CIRCUIT DESIGNER Narrative [facility]) - 08/03/2019 2:09 PM DIGITAL CIRCUIT DESIGNER Performed at: [address] [id number] Full Stack Web Developer: Bill Todd PhD, Phone: [phone] Yaquelin Barrios MD LAB - CHEMISTRY OR DERABLES Performing Organization Address [facility] de Phone Number [facility] ([facility]) [address] [place] [address] * (ABNORMAL) HISTONE ANTIBODY (08/02/2019 2:47 PM DIGITAL CIRCUIT DESIGNER) Anti-Histone Antibody 1.5(H) 0.0 - 0.9 Units 08/04/2019 1:08 PM DIGITAL CIRCUIT DESIGNER [facility] ([facility]) Comment: Negative <1.0 Weak Positive 1.0 - 1.5 Moderate Positive 1.6 - 2.5 Strong Positive >2.5 Blood BLOOD SPECIMEN / Unknown Lab Venipuncture / Unknown 08/02/2019 2:47 PM DIGITAL CIRCUIT DESIGNER 08/02/2019 2:51 PM DIGITAL CIRCUIT DESIGNER Narrative [facility] ([facility]) - 08/04/2019 1:08 PM DIGITAL CIRCUIT DESIGNER Performed at: - [address] [id number] Full Stack Web Developer: Lashonda Sin MD, Phone: [phone] Yaquelin Barrios MD LAB - CHEMISTRY OR DERABLES [facility] ([facility]) [address] [place] [address] * FLOW CYTOMETRY TISSUE PANEL (08/02/2019 12:08 PM DIGITAL CIRCUIT DESIGNER) Case Report Flow Cytometry Case: [id number] Authorizing Provider: Leonel Espinal MD Collected: 08/02/2019 12:08 PM Ordering Location: [address] Received: 08/02/2019 12:08 PM Pathologist: Trena Son MD Specimen: Cervical Lymph Node 3:15 PM [facility] Final Diagnosis Lymph node, cervical , flow cytometric immunophenotypic analysis (A): - No evidence of non-Hodgkin lymphoma. - See interpretation. 3:15 PM [facility] Flow Cytometry Interpretation The cervical lymph node specimen has a viability of 87 %. Most of the cells are within the lymphocyte gate (93%). Within this region, there is no monotypic B-cell population identified (kappa: lambda ratio = 1.3:1). There is no immunophenotypically aberrant T-cell population seen (CD4:CD8 ratio = 4:1). A cytospin prepared from the flow cytometry specimen is reviewed for quality tech purposes. The cervical lymph node shows no evidence of involvement by non-Hodgkin lymphoma. Correlation with clinical findings, the concurrent tissue biopsy ([id number]), and relevant cytogenetic/molecular studies is required. AQ/NK 9 3:15 PM DIGITAL CIRCUIT DESIGNER [facility] Flow Cytometry Results Differential Result Comment Flow Cell Count /uL 32,400 Total Viability % 87.0 Lymphocytes % 93 Dim CD45 Region % 3 Monocytes % 2 Granulocytes % 2 9 3:15 PM DIGITAL CIRCUIT DESIGNER [facility] Reason for test Acute lymphadenitis 683 Lymphadenitis 289.3 9 3:15 PM [facility] Client Specimen ID # [id number] 9 3:15 PM [facility] Number of markers 16 were performed. A-2 Flow CD3 A-4 Flow CD10 A-6 Flow CD20 A-7 Flow CD23 A-12 Flow CD2 A-13 Flow CD4 A-16 Flow CD1a A-3 Flow CD5 A-5 Flow CD19 A-8 Flow CD34 A-9 Flow CD45 A-14 Flow CD7 A-15 Flow CD8 A-17 Flow CD30 A-10 Shongopovi+CD19+ A-11 Lambda+CD19+ 9 3:15 PM [facility] Disclaimer Test performed at [facility], [address] [place] [address], [id number]. *The established laboratory minimum viability is 70%. Values below the minimum may result in the failure to find an abnormal population of cells. This test was developed and its performance characteristics determined by the Flow Cytometry Laboratory. It has not been cleared by the [place] Food and Drug Administration (FDA). The FDA has determined that such clearance or approval is not necessary. This test is used for clinical purposes. It should not be regarded as investigational or for research. This laboratory is regulated under the Clinical Laboratory Improvement Amendments of 1998 (CLIA) as a qualified to perform high complexity clinical testing. 9 3:15 PM [facility] Embedded Images 9 3:15 PM [facility] Pathology/Cytolo gy ENTIRE CERVICAL LYMPH NODE / Unknown Collection / Unknown 08/02/2019 12:08 PM DIGITAL CIRCUIT DESIGNER 08/02/2019 12:08 PM DIGITAL CIRCUIT DESIGNER Leonel Espinal MD LAB - PATHOLOGY/CYT OLOGY ORDERABLES [facility] [address] [place] [address]. [place] [address], [facility] [phone] * CULTURE TISSUE+GRAM STAIN (08/02/2019 10:41 AM DIGITAL CIRCUIT DESIGNER) Culture No growth BIANCA 08/09/2019 8:03 AM [facility] Gram Stain Heavy Polymorphonuclear cells 08/09/2019 8:03 AM [facility] Gram Stain No organisms seen 019 8:03 AM [facility] Microbiology ENTIRE CERVICAL LYMPH NODE / Unknown 08/02/2019 10:41 AM DIGITAL CIRCUIT DESIGNER 08/02/2019 11:21 AM DIGITAL CIRCUIT DESIGNER Comment:Pre-op diagnosis: Acute lymphadenitis [L04.9] Narrative [facility] - 08/09/2019 8:03 AM DIGITAL CIRCUIT DESIGNER Surgical Description: Right Cervical Lymph Node Leonel Espinal MD LAB - MICROBIOLOGY ORDERABLES Performing Organization Address [facility]/ZIP Co de Phone Number [facility] [address] [place] [address], [facility] [phone] * CULTURE FUNGUS OTHER+FUNGUS SMEAR (08/02/2019 10:41 AM DIGITAL CIRCUIT DESIGNER) Culture No fungus isolated BIANCA 08/30/2019 3:11 AM [facility] Fungus Stain No yeast or hyphae seen 08/30/2019 3:11 AM [facility] Microbiology BIOPSY OF LYMPH NODE / Unknown Collection / Unknown 08/02/2019 10:41 AM DIGITAL CIRCUIT DESIGNER 08/06/2019 12:51 PM DIGITAL CIRCUIT DESIGNER Sanket Rasmussen MD LAB - MICROBIOLOG Y ORDERABLES Performing Organization Address [facility]/ZIP Co de Phone Number [facility] [address] [place] [address], [facility] [phone] * CULTURE AFB+SMEAR (08/02/2019 10:41 AM DIGITAL CIRCUIT DESIGNER) Culture No acid-fast bacillus isolated 09/13/2019 7:58 AM [facility] AFB Smear No acid-fast bacilli seen 09/13/2019 7:58 AM [facility] Microbiology BIOPSY OF LYMPH NODE / Unknown Collection / Unknown 08/02/2019 10:41 AM DIGITAL CIRCUIT DESIGNER 08/06/2019 12:26 PM DIGITAL CIRCUIT DESIGNER Sanket Rasmussen MD LAB - MICROBIOLOG Y ORDERABLES [facility] [address] [place] [address], [facility] [phone] * ETT LINE PERFORMABLE (08/02/2019 9:[address] [facility]) Narrative Nathaniel Stearns DO - 08/02/2019 9:55 AM Nathaniel Toscano DO 08/02/2019 9:55 AM Endotracheal Tube Placement: Patient Location: OR. Intubation Event Date/Time: 08/02/2019 9:43 AM Procedure: intubation (10518). Procedure Section: Sedation: under general anesthesia. Indications for Airway Management: anesthesia Induction: standard IV and inhalation Patient Position: sniffing Mask Ventilation: easy. Blade Type: Eddie Blade Size: 3 Laryngoscopy View: grade 1 (full cords) Tube: endotracheal tube Placement: oral Tube type: cuff - inflated Tube Size (MM): 7 Depth of Insertion (CM): 22 Measured From: lips Cuff Inflated With: air Number of Attempts: 1. Placement Verified By: direct visualization, bilateral breath sounds, chest auscultation and CO2 monitor Tube secured with: adhesive tape. Procedure Start Time: 08/02/2019 9:43 AM. Staff Section Anesthesia Provider: Nathaniel Stearns DO, Performed the procedure Massimo Bermeo MD GENERAL ANESTHESIA O RDERABLES * (ABNORMAL) URINALYSIS W/MICROSCOPIC NO CULTURE (07/31/2019 10:[address] [facility]) Only the most recent of3 resultswithin the time period is included. Color UA Straw Straw, Yellow 07/31/2019 10:41 AM [facility] Clarity UA Clear Clear 07/31/2019 10:41 AM [facility] Glucose UA Negative Negative 07/31/2019 10:41 AM [facility] Bilirubin UA Negative Negative 07/31/2019 10:41 AM [facility] Ketone UA Negative Negative 07/31/2019 10:41 AM [facility] Specific [place] UA 1.009 1.005 - 1.030 07/31/2019 10:41 AM [facility] Blood UA 1+(A) Negative 07/31/2019 10:41 AM [facility] pH UA 7.0 5.0 - 8.0 pH 07/31/2019 10:41 AM [facility] Protein UA Negative Negative 07/31/2019 10:41 AM [facility] Urobilinogen UA Negative Negative mg/dL 07/31/2019 10:41 AM [facility] Nitrite UA Negative Negative 07/31/2019 10:41 AM [facility] Leukocyte UA Negative Negative 07/31/2019 10:41 AM [facility] RBC UA 0-2 None Seen, 0-2, 3-5 # /hpf 07/31/2019 10:41 AM [facility] WBC UA None Seen None Seen, 0-5 # /hpf 07/31/2019 10:41 AM [facility] Bacteria UA Trace(A) None Seen 07/31/2019 10:41 AM [facility] Squamous Epithelial Cells 0-2 None Seen, 0-2, 3-5 /hpf 07/31/2019 10:41 AM [facility] Mucus UA 1+ /LPF 07/31/2019 10:41 AM [facility] Urine URINE SPECIMEN OBTAINED BY CLEAN CATCH PROCEDURE / Unknown Collection / Unknown 07/31/2019 10:07 AM DIGITAL CIRCUIT DESIGNER 07/31/2019 10:13 AM DIGITAL CIRCUIT DESIGNER Narrative [facility] - 07/31/2019 10:41 AM DIGITAL CIRCUIT DESIGNER Dequan Oquendo MD LAB - URINALYSIS ORD ERABLES [facility] [address] [place] [address] * CK BLOOD (07/31/2019 8:32 AM DIGITAL CIRCUIT DESIGNER) CK 37 29 - 168 U/L 07/31/2019 9:24 AM [facility] Blood BLOOD SPECIMEN / Unknown Lab Venipuncture / Unknown 07/31/2019 8:32 AM DIGITAL CIRCUIT DESIGNER 07/31/2019 8:53 AM DIGITAL CIRCUIT DESIGNER Dequan Oquendo MD LAB - CHEMISTRY ORDE RABLES Performing Organization Address City/[facility]/ZIP Co de Phone Number [facility] [address] [place] [address] * CYCLIC CITRUL PEPTIDE ANTIBODY IGG/IGA (CCP) (07/29/2019 2:54 PM DIGITAL CIRCUIT DESIGNER) [facility] CCP Antibodies IgG/IgA 8 0 - 19 units 07/31/2019 1:06 AM DIGITAL CIRCUIT DESIGNER [facility] ([facility]) Comment: Negative <20 Weak positive 20 - 39 Moderate positive 40 - 59 Strong positive >59 Blood BLOOD SPECIMEN / Unknown Lab Venipuncture / Unknown 07/29/2019 2:54 PM DIGITAL CIRCUIT DESIGNER 07/29/2019 3:03 PM DIGITAL CIRCUIT DESIGNER Narrative [facility] ([facility]) - 07/31/2019 1:06 AM DIGITAL CIRCUIT DESIGNER Performed at: [address] [id number] Full Stack Web Developer: Lashonda Sin MD, Phone: [phone] Dequan Oquendo MD LAB - SEROLOGY ORDER [facility] ([facility]) [address] [place] [address] * RHEUMATOID FACTOR BLOOD QUANTITATIVE (07/29/2019 2:54 PM DIGITAL CIRCUIT DESIGNER) [facility] Rheumatoid Factor Quantitative <10 <15 IU/mL 07/29/2019 3:35 PM DIGITAL CIRCUIT DESIGNER [facility] Blood BLOOD SPECIMEN / Unknown Lab Venipuncture / Unknown 07/29/2019 2:54 PM DIGITAL CIRCUIT DESIGNER 07/29/2019 3:03 PM DIGITAL CIRCUIT DESIGNER Dequan Oquendo MD LAB - CHEMISTRY ORDE GENARO Performing Organization Address City/[facility]/ZIP Co de Phone Number [facility] [place] [address] * (ABNORMAL) FIBRINOGEN ACTIVITY (07/29/2019 2:54 PM DIGITAL CIRCUIT DESIGNER) [facility] Fibrinogen 601(HH) 200 - 400 mg/dL 07/29/2019 3:51 PM DIGITAL CIRCUIT DESIGNER [facility] Blood BLOOD SPECIMEN / Unknown Lab Venipuncture / Unknown 07/29/2019 2:54 PM DIGITAL CIRCUIT DESIGNER 07/29/2019 3:03 PM DIGITAL CIRCUIT DESIGNER Dequan Oquendo MD LAB - COAGULATION OR DERABLES [facility] [address] [place] [address] * (ABNORMAL) FERRITIN (07/29/2019 2:54 PM DIGITAL CIRCUIT DESIGNER) Ferritin 129(H) 10 - 120 ng/mL 07/29/2019 4:32 PM DIGITAL CIRCUIT DESIGNER [facility] Blood BLOOD SPECIMEN / Unknown Lab Venipuncture / Unknown 07/29/2019 2:54 PM DIGITAL CIRCUIT DESIGNER 07/29/2019 3:03 PM DIGITAL CIRCUIT DESIGNER Dequan Oquendo MD LAB - CHEMISTRY ROGERIO LAM [facility] [address] [place] [address] * RPR W REFLEX TO TITER (MONITOR) (07/28/2019 5:51 PM DIGITAL CIRCUIT DESIGNER) Pathologist [facility] [place] RPR Monitor Nonreactive Nonreactive 07/30/2019 10:28 AM DIGITAL CIRCUIT DESIGNER [facility] Blood BLOOD SPECIMEN / Unknown Lab Venipuncture / Unknown 07/28/2019 5:51 PM DIGITAL CIRCUIT DESIGNER 07/28/2019 6:23 PM DIGITAL CIRCUIT DESIGNER Navarro Dorsey MD LAB - CHEMISTRY ORDERABLES Performing Organization Address City/[facility]/ZIP Co de Phone Number [facility] [address] [place] [address] * HIV-1 HIV-2 ANTIBODY + HIV P24 AG PANEL (07/28/2019 5:51 PM DIGITAL CIRCUIT DESIGNER) Pathologist [facility] [place] HIV1/2 Ab + P24 Ag Non Reactive Non Reactive 07/28/2019 7:06 PM DIGITAL CIRCUIT DESIGNER [facility] Blood BLOOD SPECIMEN / Unknown Lab Venipuncture / Unknown 07/28/2019 5:51 PM DIGITAL CIRCUIT DESIGNER 07/28/2019 6:22 PM DIGITAL CIRCUIT DESIGNER Narrative [facility] - 07/28/2019 7:06 PM DIGITAL CIRCUIT DESIGNER No Laboratory evidence of HIV infection. Navarro Dorsey MD LAB - CHEMISTRY ORDERABLES [facility] [address] [place] [address] * ASO TITER (07/28/2019 5:51 PM DIGITAL CIRCUIT DESIGNER) [facility] ASO Titer 172.6 0.0 - 200.0 IU/mL 07/30/2019 8:12 AM DIGITAL CIRCUIT DESIGNER [facility] ([facility]) Blood BLOOD SPECIMEN / Unknown Lab Venipuncture / Unknown 07/28/2019 5:51 PM DIGITAL CIRCUIT DESIGNER 07/28/2019 6:23 PM DIGITAL CIRCUIT DESIGNER Narrative [facility] ([facility]) - 07/30/2019 8:12 AM DIGITAL CIRCUIT DESIGNER [facility]formed [facility] [address] [place] [id number] Full Stack Web Developer: Bill Todd PhD, Phone: [phone] Navarro Dorsey MD LAB - CHEMISTRY ORDERABLES Performing Organization Address [facility] de Phone Number [facility] ([facility]) [address] [place] [address] * DNASE ANTIBODY B (07/28/2019 5:51 PM DIGITAL CIRCUIT DESIGNER) [facility] DNase B Antibody <78 0 - 170 U/mL 07/31/2019 5:07 AM DIGITAL CIRCUIT DESIGNER [facility] ([facility]) Comment: Results verified by repeat testing Limit of assay detection is <78 Blood BLOOD SPECIMEN / Unknown Lab Venipuncture / Unknown 07/28/2019 5:51 PM DIGITAL CIRCUIT DESIGNER 07/28/2019 6:23 PM DIGITAL CIRCUIT DESIGNER Narrative [facility] ([facility]) - 07/31/2019 5:07 AM DIGITAL CIRCUIT DESIGNER Performed at: [address] [id number] Full Stack Web Developer: Lashonda Sin MD, Phone: [phone] Navarro Dorsey MD LAB - CHEMISTRY ORDERABLES Performing Organization Address City/[facility] Co de Phone Number [facility] ([facility]) [address] [place] [address] * TOXOPLASMA ANTIBODY IGG/IGM PANEL (07/28/2019 5:51 PM DIGITAL CIRCUIT DESIGNER) [facility] Toxoplasma gondii Antibody IgG Quantitative <3.0 0.0 - 7.1 IU/mL 07/30/2019 9:[address] [facility] ([facility]) Comment: Negative <7.2 Equivocal 7.2 - 8.7 Positive >8.7 Toxoplasma Antibody IgM <3.0 0.0 - 7.9 AU/mL 07/30/2019 9:[address] [facility] ([facility]) Comment: Negative <8.0 Equivocal 8.0 - 9.9 Positive >9.9 Comments Comment 07/30/2019 9:[address] [facility] Comment: No serological evidence of infection with Toxoplasma. If symptoms persist, submit a new specimen after three weeks. Blood BLOOD SPECIMEN / Unknown Lab Venipuncture / Unknown 07/28/2019 5:51 PM DIGITAL CIRCUIT DESIGNER 07/28/2019 6:22 PM DIGITAL CIRCUIT DESIGNER Narrative [facility] ([facility]) - 07/30/2019 9:09 AM DIGITAL CIRCUIT DESIGNER Performed at: [address] [place] [id number] Full Stack Web Developer: Bill Todd PhD, Phone: [phone] Navarro Dorsey MD LAB - CHEMISTRY ORDERABLES Performing Organization Address City/[facility]/ZIP Co de Phone Number [facility] ([facility]) [address] [place] [address] * URIC ACID BLOOD (07/28/2019 8:38 AM DIGITAL CIRCUIT DESIGNER) Uric Acid 4.2 2.0 - 5.5 mg/dL 07/28/2019 12:20 PM DIGITAL CIRCUIT DESIGNER [facility] Blood BLOOD SPECIMEN / Unknown Lab Venipuncture / Unknown 07/28/2019 8:38 AM DIGITAL CIRCUIT DESIGNER 07/28/2019 8:46 AM DIGITAL CIRCUIT DESIGNER Navarro Dorsey MD LAB - CHEMISTRY ORDERABLES [facility] [address] [place] [address] * LDH BLOOD (07/28/2019 8:38 AM DIGITAL CIRCUIT DESIGNER) LDH 166 140 - 260 U/L 07/28/2019 12:20 PM DIGITAL CIRCUIT DESIGNER [facility] Blood BLOOD SPECIMEN / Unknown Lab Venipuncture / Unknown 07/28/2019 8:38 AM DIGITAL CIRCUIT DESIGNER 07/28/2019 8:46 AM DIGITAL CIRCUIT DESIGNER Navarro Dorsey MD LAB - CHEMISTRY ORDERABLES Performing Organization Address [facility] Co de Phone Number [facility] [address] [place] [address] * HOLD SPECIMEN CSF (07/27/2019 3:29 PM DIGITAL CIRCUIT DESIGNER) Specimen Hold Specimen hold completed. 08/26/2019 5:00 PM DIGITAL CIRCUIT DESIGNER [facility] Cerebral spinal fluid CEREBROSPINAL FLUID SPECIMEN / Unknown Collection / Unknown 07/27/2019 3:29 PM DIGITAL CIRCUIT DESIGNER 07/27/2019 4:32 PM DIGITAL CIRCUIT DESIGNER Hakeem Garner DO LAB - BODY FLUID ORDERABLES Performing Organization Address [facility] de Phone Number [facility] [address] [place] [address] * ENTEROVIRUS PCR CSF (07/27/2019 3:29 PM DIGITAL CIRCUIT DESIGNER) Pathologist [facility] [place] Enterovirus by PCR Not detected Not detected, Indeterminate 07/28/2019 7:34 AM [facility] Cerebral spinal fluid CEREBROSPINAL FLUID SPECIMEN / Unknown Collection / Unknown 07/27/2019 3:29 PM DIGITAL CIRCUIT DESIGNER 07/27/2019 7:47 PM DIGITAL CIRCUIT DESIGNER Narrative [facility] - 07/28/2019 7:34 AM DIGITAL CIRCUIT DESIGNER Not Detected results do not rule out enterovirus as a cause of infection, and must be evaluated in clinical context. This test cannot rule out other causes of meningitis, including bacteria, mycobacteria, other viruses (e.g. herpes family viruses, arboviruses, mumps virus, etc) and fungi. Hakeem Garner DO LAB - MICROBIOLOG Y ORDERABLES Performing Organization Address [facility] Co de Phone Number [facility] [address] [place] [address], [facility] [phone] * PROTEIN CSF (07/27/2019 3:29 PM DIGITAL CIRCUIT DESIGNER) Protein CSF 15 15 - 40 mg/dL 07/27/2019 4:52 PM DIGITAL CIRCUIT DESIGNER [facility] Cerebral spinal fluid CEREBROSPINAL FLUID SPECIMEN / Unknown Collection / Unknown 07/27/2019 3:29 PM DIGITAL CIRCUIT DESIGNER 07/27/2019 4:32 PM DIGITAL CIRCUIT DESIGNER Hakeem A Dumontier DO LAB - BODY FLUID ORDERABLES Performing Organization Address [facility] Co de Phone Number [facility] [address] [place] [address] * (ABNORMAL) GLUCOSE CSF (07/27/2019 3:29 PM DIGITAL CIRCUIT DESIGNER) Glucose CSF 50(L) 60 - 82 mg/dL 07/27/2019 4:51 PM [facility] Cerebral spinal fluid CEREBROSPINAL FLUID SPECIMEN / Unknown Collection / Unknown 07/27/2019 3:29 PM DIGITAL CIRCUIT DESIGNER 07/27/2019 4:32 PM DIGITAL CIRCUIT DESIGNER Hakeem A Pocket Socialier LAB - BODY FLUID ORDERABLES Performing Organization Address [facility] de Phone Number [facility] [address] [place] [address] * DIFFERENTIAL MANUAL CSF (07/27/2019 3:27 PM DIGITAL CIRCUIT DESIGNER) Total Nucleated Cell Count 4 0 - 10 x10E6/L 07/27/2019 5:37 PM [facility] Neutro CSF 07/27/2019 5:37 PM [facility] Lymphocytes % CSF 71 % 07/27/2019 5:37 PM [facility] Monocytes % CSF 25 % 9 5:37 PM [facility] Eosinophils CSF 9 5:37 PM [facility] Basophils % CSF 9 5:37 PM [facility] Macrophage CSF 3 % 07/27/2019 5:37 PM [facility] Transformed Lymph CSF 07/27/2019 5:37 PM [facility] Immature Cells CSF 07/27/2019 5:37 PM [facility] Other Cell CSF 07/27/2019 5:37 PM DIGITAL CIRCUIT DESIGNER [facility] Cells counted CSF 63 07/27/2019 5:37 PM DIGITAL CIRCUIT DESIGNER [facility] Cerebral spinal fluid CEREBROSPINAL FLUID SPECIMEN / Unknown Collection / Unknown 07/27/2019 3:27 PM DIGITAL CIRCUIT DESIGNER 07/27/2019 4:32 PM DIGITAL CIRCUIT DESIGNER Hakeem A Dumontier DO LAB - BODY FLUID ORDERABLES Performing Organization Address [facility] Co de Phone Number [facility] [address] [place] [address] * GRAM STAIN (LAB ORDERED) (07/27/2019 3:27 PM DIGITAL CIRCUIT DESIGNER) Gram Stain Light Polymorphonuclear cells 07/27/2019 7:59 PM [facility] Gram Stain Rare Red blood cells 07/09 7:59 PM DIGITAL CIRCUIT DESIGNER [facility] Gram Stain No organisms seen 019 7:59 PM [facility] Microbiology CEREBROSPINAL FLUID SPECIMEN / Unknown Collection / Unknown 07/27/2019 3:27 PM DIGITAL CIRCUIT DESIGNER 07/27/2019 4:32 PM DIGITAL CIRCUIT DESIGNER Hakeem A Dumontier DO LAB - MICROBIOLOG Y ORDERABLES Performing Organization Address [facility] de Phone Number [facility] [address] [place] [address] * CULTURE CSF+GRAM STAIN (07/27/2019 3:27 PM DIGITAL CIRCUIT DESIGNER) Culture No growth BIANCA 08/03/2019 6:36 AM DIGITAL CIRCUIT DESIGNER [facility] Gram Stain Rare Polymorphonuclear cells 08/03/2019 6:36 AM DIGITAL CIRCUIT DESIGNER [facility] Gram Stain No organisms seen 019 6:36 AM DIGITAL CIRCUIT DESIGNER [facility] Cerebral spinal fluid CEREBROSPINAL FLUID SPECIMEN / Unknown Collection / Unknown 07/27/2019 3:27 PM DIGITAL CIRCUIT DESIGNER 07/27/2019 4:32 PM DIGITAL CIRCUIT DESIGNER Hakeem A Dumontier DO LAB - MICROBIOLOG Y ORDERABLES Performing Organization Address City/[facility] Co de Phone Number [facility] [address] [place], [place] [address] [phone] * CELL COUNT W DIFFERENTIAL CSF (07/27/2019 3:27 PM DIGITAL CIRCUIT DESIGNER) Character CSF Clear Clear 07/27/2019 5:34 PM DIGITAL CIRCUIT DESIGNER [facility] Color CSF Colorless Colorless 07/27/2019 5:34 PM DIGITAL CIRCUIT DESIGNER [facility] Total Nucleated Cells CSF 4 0 - 10 x10E6/L 07/27/2019 5:34 PM DIGITAL CIRCUIT DESIGNER [facility] RBC CSF 2 0 - 5 x10E6/L 07/27/2019 5:34 PM [facility] Xanthochromia CSF No 07/27/2019 5:34 PM DIGITAL CIRCUIT DESIGNER [facility] Comment CSF Manual Diff to follow 07/27/2019 5:34 PM DIGITAL CIRCUIT DESIGNER [facility] Cerebral spinal fluid CEREBROSPINAL FLUID SPECIMEN / Unknown Collection / Unknown 07/27/2019 3:27 PM DIGITAL CIRCUIT DESIGNER 07/27/2019 4:32 PM DIGITAL CIRCUIT DESIGNER Hakeem Garner DO LAB - BODY FLUID ORDERABLES Performing Organization Address City/[facility]/ZIP Co de Phone Number [facility] [address] [place] [phone] * VIRAL CULTURE MISC (07/27/2019 3:25 PM DIGITAL CIRCUIT DESIGNER) Pathologist [facility] [place] Viral Culture No virus isolated. 08/06/2019 4:06 AM DIGITAL CIRCUIT DESIGNER [facility] ([facility]) Microbiology CEREBROSPINAL FLUID SPECIMEN / Unknown Collection / Unknown 07/27/2019 3:25 PM DIGITAL CIRCUIT DESIGNER 07/27/2019 4:32 PM DIGITAL CIRCUIT DESIGNER Narrative [facility] ([facility]) - 08/06/2019 4:06 AM DIGITAL CIRCUIT DESIGNER Performed at: 01 - [facility] [id number] Full Stack Web Developer: Lashonda Sin MD, Phone: [phone] Hakeem Garner DO LAB - MICROBIOLOG Y ORDERABLES [facility] ([facility]) [address] [place] [address] * CT SOFT TISSUE NECK W CONTRAST (07/27/2019 2:14 PM DIGITAL CIRCUIT DESIGNER) Anatomical Region Laterality Modality Head Computed Tomogra phy 07/27/2019 2:19 PM DIGITAL CIRCUIT DESIGNER Impressions 07/27/2019 2:27 PM DIGITAL CIRCUIT DESIGNER Cervical lymphadenopathy, and mild adenoid and tonsillar lymphoid hypertrophy. This may be reactive from acute infectious or inflammatory process versus due to lymphoproliferative disease. Reading Radiologist: Bruno Ramirez MD on 07/27/2019 at 2:27 PM Narrative 07/27/2019 2:27 PM DIGITAL CIRCUIT DESIGNER EXAMINATION: Computed tomography (CT) of the neck soft tissue with contrast HISTORY: Fever, unspecified TECHNIQUE: CT of the neck was performed with 95 mL Isovue-300 according to standard protocol. Automated dose reduction techniques were employed. DOSE: CTDIvol: 6 mGy, DLP: 142 mGy-cm The reported CTDIvol (mGy) and DLP (mGy-cm) values are generated from scan acquisition factors based on a 32 cm body phantom or 16 cm head phantom and may underestimate or overestimate the actual patient dose based on patient size and other factors. FINDINGS: No significant cellulitis or edema in the neck. No drainable abscess. Cervical lymphadenopathy, worst at bilateral level 2, but also involving level 3, 4, and 5. This includes prominent enhancement of lymph nodes at these levels, and abnormally large size of the lymph nodes worst at bilateral level 2. For reference: largest jessa mass in right level 2 measures 3.0 x 2.0 cm in maximum axial plane. Largest jessa mass at left level 2 measures 2.7 x 1.5 cm in maximum axial plane. Mild hypertrophy of the adenoid and tonsillar tissue. Airway is widely patent. No abnormal thickening of the epiglottis. Procedure Note Bruno Ramirez MD - 07/27/2019 EXAMINATION: Computed tomography (CT) of the neck soft tissue with contrast HISTORY: Fever, unspecified TECHNIQUE: CT of the neck was performed with 95 mL Isovue-300 according to standard protocol. Automated dose reduction techniques were employed. DOSE: CTDIvol: 6 mGy, DLP: 142 mGy-cm The reported CTDIvol (mGy) and DLP (mGy-cm) values are generated from scan acquisition factors based on a 32 cm body phantom or 16 cm head phantom and may underestimate or overestimate the actual patient dose based on patient size and other factors. FINDINGS: No significant cellulitis or edema in the neck. No drainable abscess. Cervical lymphadenopathy, worst at bilateral level 2, but also involving level 3, 4, and 5. This includes prominent enhancement of lymph nodes at these levels, and abnormally large size of the lymph nodes worst at bilateral level 2. For reference: largest jessa mass in right level 2 measures 3.0 x 2.0 cm in maximum axial plane. Largest jessa mass at left level 2 measures 2.7 x 1.5 cm in maximum axial plane. Mild hypertrophy of the adenoid and tonsillar tissue. Airway is widely patent. No abnormal thickening of the epiglottis. IMPRESSION Cervical lymphadenopathy, and mild adenoid and tonsillar lymphoid hypertrophy. This may be reactive from acute infectious or inflammatory process versus due to lymphoproliferative disease. Reading Radiologist: Bruno Ramirez MD on 07/27/2019 at 2:27 PM Hakeem Huertaontier DO CT ORDERABLES * CT HEAD WO CONTRAST (07/27/2019 2:13 PM DIGITAL CIRCUIT DESIGNER) Anatomical Region Laterality Modality Head Computed Tomogra phy 07/27/2019 2:15 PM DIGITAL CIRCUIT DESIGNER Impressions 07/27/2019 2:19 PM DIGITAL CIRCUIT DESIGNER No acute intracranial CT abnormality. Reading Radiologist: Bruno Ramirez MD on 07/27/2019 at 2:19 PM Narrative 07/27/2019 2:19 PM DIGITAL CIRCUIT DESIGNER EXAMINATION: Computed tomography (CT) of the head without contrast HISTORY: Fever, unspecified TECHNIQUE: CT of the head was performed without contrast according to standard protocol. Automated dose reduction techniques were employed. DOSE: CTDIvol: 36 mGy, DLP: 635 mGy-cm The reported CTDIvol (mGy) and DLP (mGy-cm) values are generated from scan acquisition factors based on a 32 cm body phantom or 16 cm head phantom and may underestimate or overestimate the actual patient dose based on patient size and other factors. The graft comparison: MRI brain without and with contrast 10/27/2014 FINDINGS: No intracranial hemorrhage or extra-axial fluid collection. Woody-white matter differentiation appears preserved. 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 Appearance of normal rounded configuration of cerebellar tonsils.. No significant mass effect. No midline shift. Basal cisterns are patent. No change in normal ventricle size, shape, and configuration. The bony calvarium is intact. Mild mucosal thickening of right maxillary antrum. Middle ear cavities and mastoids are clear.. Procedure Note Bruno Ramirez MD - 07/27/2019 EXAMINATION: Computed tomography (CT) of the head without contrast HISTORY: Fever, unspecified TECHNIQUE: CT of the head was performed without contrast according to standard protocol. Automated dose reduction techniques were employed. DOSE: CTDIvol: 36 mGy, DLP: 635 mGy-cm The reported CTDIvol (mGy) and DLP (mGy-cm) values are generated from scan acquisition factors based on a 32 cm body phantom or 16 cm head phantom and may underestimate or overestimate the actual patient dose based on patient size and other factors. The graft comparison: MRI brain without and with contrast 10/27/2014 FINDINGS: No intracranial hemorrhage or extra-axial fluid collection. Woody-white matter differentiation appears preserved. 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 Appearance of normal rounded configuration of cerebellar tonsils.. No significant mass effect. No midline shift. Basal cisterns are patent. No change in normal ventricle size, shape, and configuration. The bony calvarium is intact. Mild mucosal thickening of right maxillary antrum. Middle ear cavities and mastoids are clear.. IMPRESSION No acute intracranial CT abnormality. Reading Radiologist: Bruno Ramirez MD on 07/27/2019 at 2:19 PM Hakeem Garner DO CT ORDERABLES * MONONUCLEOSIS SCREEN (07/27/2019 1:17 PM DIGITAL CIRCUIT DESIGNER) Mononucleosis Screen Negative Negative 07/27/2019 2:03 PM DIGITAL CIRCUIT DESIGNER [facility] Blood BLOOD SPECIMEN / Unknown Venipuncture / Unknown 07/27/2019 1:17 PM DIGITAL CIRCUIT DESIGNER 07/27/2019 1:37 PM DIGITAL CIRCUIT DESIGNER Hakeem Garner DO LAB - CHEMISTRY O RDERABLES [facility] [place] [address] * CULTURE BLOOD (07/27/2019 1:17 PM DIGITAL CIRCUIT DESIGNER) Only the most recent of2 resultswithin the time period is included. Culture No growth day 5 BIANCA 08/01/2019 4:30 PM DIGITAL CIRCUIT DESIGNER [facility] Blood PERIPHERAL BLOOD / Unknown Venipuncture / Unknown 07/27/2019 1:17 PM DIGITAL CIRCUIT DESIGNER 07/27/2019 1:37 PM DIGITAL CIRCUIT DESIGNER Hakeem A Dumontier DO LAB - MICROBIOLOG Y ORDERABLES [facility] [address] [place] [address], [facility] [phone] * (ABNORMAL) DIFFERENTIAL MANUAL (07/27/2019 1:17 PM DIGITAL CIRCUIT DESIGNER) WBC Auto 10.4 x10E9/L 07/27/2019 3:48 PM [facility] WBC Corrected 07/27/2019 3:48 PM [facility] nRBC 07/27/2019 3:48 PM [facility] Neutrophil % Manual 70 31 - 78 % 07/27/2019 3:48 PM [facility] Lymphocytes % Manual 17 13 - 54 % 07/27/2019 3:48 PM [facility] Monocytes % Manual 13 4 - 13 % 07/27/2019 3:48 PM [facility] Cells Counted 100 # cells 07/27/2019 3:48 PM [facility] Platelet Estimation Adequate platelets Normal, Adequate platelets 07/27/2019 3:48 PM [facility] WBC Morph Normal 07/27/2019 3:48 PM [facility] Anisocytosis Occasional(A ) None 07/27/2019 3:48 PM [facility] Hypochromia Occasional(A ) None 07/27/2019 3:48 PM [facility] Poikilocytosis Occasional(A ) None 07/27/2019 3:48 PM [facility] Blood BLOOD SPECIMEN / Unknown Venipuncture / Unknown 07/27/2019 1:17 PM DIGITAL CIRCUIT DESIGNER 07/27/2019 1:36 PM DIGITAL CIRCUIT DESIGNER Hakeem A Dumontier DO LAB - HEMATOLOGY ORDERABLES [facility] [place] [address] * XR CHEST PA AND LATERAL (07/27/2019 12:24 PM DIGITAL CIRCUIT DESIGNER) Only the most recent of2 resultswithin the time period is included. Anatomical Region Laterality Modality Chest Radiographic Fozia ging 07/27/2019 12:3 3 PM DIGITAL CIRCUIT DESIGNER Impressions 07/27/2019 12:33 PM DIGITAL CIRCUIT DESIGNER Normal chest. Reading Radiologist: Tree Groves MD on 07/27/2019 at 12:33 PM Narrative 07/27/2019 12:33 PM DIGITAL CIRCUIT DESIGNER INDICATION: Fever COMPARISON: None available. TECHNIQUE: Frontal and lateral radiographs of the chest. FINDINGS: The heart is normal in size. The lungs are clear. There is no pneumothorax or pleural effusion. The upper abdomen is normal. No bone abnormality is seen. Procedure Note Tree Groves MD - 07/27/2019 INDICATION: Fever COMPARISON: None available. TECHNIQUE: Frontal and lateral radiographs of the chest. FINDINGS: The heart is normal in size. The lungs are clear. There is no pneumothorax or pleural effusion. The upper abdomen is normal. No bone abnormality is seen. IMPRESSION Normal chest. Reading Radiologist: Tree Groves MD on 07/27/2019 at 12:33 PM Hakeem A Patsy DO DIAGNOSTIC IMAGIN G ORDERABLES * Critical Care (07/27/2019 12:21 PM DIGITAL CIRCUIT DESIGNER) Narrative Monet Ortiz MD - 07/27/2019 12:21 PM DIGITAL CIRCUIT DESIGNER Monet Ortiz MD 07/27/2019 3:37 PM Critical Care Performed by: Monet Ortiz MD Authorized by: Monet Ortiz MD Critical care provider statement: Critical care time (minutes): 40 Critical care was necessary to treat or prevent imminent or life-threatening deterioration of the following conditions: Dehydration (Fever of unknown origin) Critical care was time spent personally by me on the following activities: Development of treatment plan with patient or surrogate, evaluation of patient's response to treatment, examination of patient, obtaining history from patient or surrogate, ordering and performing treatments and interventions, ordering and review of laboratory studies, ordering and review of radiographic studies and re-evaluation of patient's condition I assumed direction of critical care for this patient from another provider in my specialty: no Monet Ortiz MD PROCEDURE/MINOR SURGICAL ORDERABLES * Lumbar Puncture (07/27/2019 11:53 AM DIGITAL CIRCUIT DESIGNER) Narrative Hakeem Garner DO - 07/27/2019 11:53 AM DIGITAL CIRCUIT DESIGNER Hakeem Garner DO 07/27/2019 5:48 PM Lumbar Puncture Date/Time: 07/27/2019 3:38 PM Performed by: Hakeem Garner DO Authorized by: Hakeem Garner DO Consent: Consent obtained: Written Consent given by: Patient and parent Risks discussed: Bleeding, infection, pain and headache Pre-procedure details: Procedure purpose: Diagnostic Preparation: Patient was prepped and draped in usual sterile fashion Sedation: Sedation type: Anxiolysis Anesthesia (see MAR for exact dosages): Anesthesia method: Local infiltration Local anesthetic: Lidocaine 1% w/o epi Procedure details: Lumbar space: L4-L5 interspace Patient position: R lateral decubitus Needle gauge: 22 Needle length (in): 3.5 Number of attempts: 1 Closing pressure (cm H2O): 27 Fluid appearance: Clear Tubes of fluid: 4 Total volume (ml): 6 Post-procedure: Puncture site: Adhesive bandage applied and direct pressure applied Patient tolerance of procedure: Tolerated well, no immediate complications Hakeem Garner DO PROCEDURE/MINOR S URGICAL ORDERABLES * XR KNEE LEFT 3VW (07/12/2019) Anatomical Region Laterality Modality Lower Extremity Other Olvin Galdamez DO DIAGNOSTIC IMAG ING ORDERABLES * STREP A SCREEN - POINT OF CARE (AMB) (06/22/2019 10:01 AM CDT) Only the most recent of3 resultswithin the time period is included. Strep A Rapid POCT Negative Negative Strep A Internal Control Present Other ENTIRE THROAT (SURFACE REGION OF NECK) / Unknown 06/22/2019 10:01 AM CDT Joana Ambrose MD LAB - POINT OF CARE ORDERABLES * (ABNORMAL) LIPID PROFILE+GLUCOSE - POINT OF CARE (AMB) (02/09/2019) Pathologist [facility] [place] QC Verified Yes Yes Cholesterol POCT 161 200 mg/dl HDL POCT 53 mg/dL Triglycerides POCT 145(A) 130 mg/dL LDL 79 130 mg/dl Non HDL Cholesterol POCT 108 145 mg/dL Total Cholesterol/HDL Ratio POCT 3.0 6.0 Glucose 97 70 - 126 mg/dL Blood BLOOD SPECIMEN / Unknown 02/09/2019 Ruth Ann Addison MANAGER PEDIATRIC-WINE CONSULTANT LAB - POINT OF CARE ORDERABLES * HEMOGLOBIN - POINT OF CARE (AMB) (02/09/2019) Pathologist [facility] [place] Hemoglobin POCT 13.8 11.0 - 14.0 gm/dL Blood BLOOD SPECIMEN / Unknown 02/09/2019 Ruth Ann Addison MANAGER PEDIATRIC-WINE CONSULTANT LAB - POINT OF CARE ORDERABLES * CULTURE RESPIRATORY UPPER (11/06/2018 3:51 PM DIGITAL CIRCUIT DESIGNER) Only the most recent of2 resultswithin the time period is included. Pathologist [facility] [place] Upper Respiratory Culture Final report [facility] INSURANCE BILL Result 1 [facility] INSURANCE BILL Comment:Routine respiratory logan 11/06/2018 3:51 PM DIGITAL CIRCUIT DESIGNER 11/06/2018 Narrative Resulting Agency Comment [facility] [address] [facility] [id number] Olvin Galdamez DO LAB - MICROBIOL OGY ORDERABLES [facility] INSURANCE BILL [address] [place] [address] * INFLUENZA A+B - POINT OF CARE (AMB) (11/06/2018 3:50 PM DIGITAL CIRCUIT DESIGNER) Pathologist [facility] [place] Influenza A Antigen Rapid Negative Negative Influenza B Antigen Rapid Negative Negative Influenza Internal Control present NEGATIVE - POSITIVE Influenza Lot Number [id number] Influenza Expiration Date 11/15/19 Other SPECIMEN FROM NASOPHARYNGEAL STRUCTURE / Unknown 11/06/2018 3:50 PM DIGITAL CIRCUIT DESIGNER Olvin Galdamez DO LAB - POINT OF CARE ORDERABLES * US ABDOMEN COMPLETE (08/01/2018) Anatomical Region Laterality Modality Abdomen Ultrasound Adrien Purvis MD US ORDERABLES * EGD (07/17/2018 1:45 PM DIGITAL CIRCUIT DESIGNER) Report Endoscopy POC _ Patient Name: Shawnee Mac Date of : 2000 Admit Type: Outpatient Age: 18 Gender: Female Attending MD: Adrien Purvis MD Order #: [id number] _ Procedure: Upper GI endoscopy Indications: Epigastric abdominal pain, Abdominal pain in the right upper quadrant, Weight loss Providers: Adrien Purvis MD ( attending), Chely Conteh MD ( fellow) Referring MD: Joana Ambrose MD Medicines: General Anesthesia Complications: No immediate complications. Estimated blood loss: Minimal. _ Procedure: After obtaining informed consent, the endoscope was passed under direct vision. Throughout the procedure, the patient's blood pressure, pulse, and oxygen saturations were monitored continuously. The Endoscope was introduced through the mouth, and advanced to the second part of duodenum. The upper GI endoscopy was accomplished without difficulty. The patient tolerated the procedure well. Findings: The examined esophagus was normal. Biopsies were taken with a cold forceps for histology from distal esophagus. Patchy nodular mucosa was found in the gastric body. Biopsies were taken with a cold forceps for histology. Biopsies were taken with a cold forceps for Helicobacter pylori testing. The examined duodenum was normal. Biopsies for histology were taken with a cold forceps for evaluation of celiac disease from 2nd portion and bulb, total of 5 biopies. Impression: Grossly normal study - Normal esophagus. Biopsied. - Mildly nodular mucosa in the gastric body. Biopsied. - Normal examined duodenum. Biopsied. Recommendation: likely functional abdominal pain, VS eating disorder, H pyroli gastritis less likely, will start the patient on periactin for possible functional dyspepsia. - Await pathology results. we will call the parents with results and to plan next steps. - Return to GI office in 1 month. - Dischrge home with parents. Procedure Code(s): --- Professional --- 35126, Esophagogastrodu odenoscopy, flexible, transoral; with biopsy, single or multiple --- Technical --- 45175, Esophagogastrodu odenoscopy, flexible, transoral; with biopsy, single or multiple Diagnosis Code(s): --- Professional --- K31.89, Other diseases of stomach and duodenum R10.13, Epigastric pain R10.11, Right upper quadrant pain R63.4, Abnormal weight loss --- Technical --- K31.89, Other diseases of stomach and duodenum R10.13, Epigastric pain R10.11, Right upper quadrant pain R63.4, Abnormal weight loss CPT copyright 2015 [employer]. All rights reserved. The codes documented in this report are preliminary and upon head of drama review may be revised to meet current compliance requirements. Dr. Adrien Purvis Adrien Purvis MD 07/17/2018 9:20:15 AM This report has been signed electronically. Number of Addenda: 0 Note Initiated On: 07/15/2018 1:45 PM Procedure Date: 07/17/2018 1:45:00 PM This report has been signed electronically. [facility] 07/17/2018 1:45 PM DIGITAL CIRCUIT DESIGNER Lola Lynch MANAGER PEDIATRIC-WINE CONSULTANT GI PROCED URE ORDERABLES [facility] [address] [place] [address] * TISSUE TRANSGLUTAMINASE AB IGA (07/17/2018 8:55 AM DIGITAL CIRCUIT DESIGNER) TTG Antibody IgA <2 0 - 3 U/mL 07/18/2018 3:11 PM DIGITAL CIRCUIT DESIGNER [facility] ([facility]) Comment: Negative 0 - 3 Weak Positive 4 - 10 Positive >10 Tissue Transglutaminase (tTG) has been identified as the endomysial antigen. Studies have demonstr- ated that endomysial IgA antibodies have over 99% specificity for gluten sensitive enteropathy. Blood BLOOD SPECIMEN / Unknown Venipuncture / Unknown 07/17/2018 8:55 AM DIGITAL CIRCUIT DESIGNER 07/17/2018 9:11 AM DIGITAL CIRCUIT DESIGNER Narrative [facility] ([facility]) - 07/18/2018 3:11 PM DIGITAL CIRCUIT DESIGNER Performed at: - [address] [id number] Full Stack Web Developer: Bill Todd PhD, Phone: [phone] Chely Conteh MD LAB - SEROLOGY ORDER PATRICIA Performing Organization Address City/[facility] Co de Phone Number [facility] ([facility]) [address] [place] [address] * IGA BLOOD (07/17/2018 8:55 AM DIGITAL CIRCUIT DESIGNER) IgA 140 65 - 421 mg/dL 07/17/2018 9:51 AM DIGITAL CIRCUIT DESIGNER [facility] Blood BLOOD SPECIMEN / Unknown Venipuncture / Unknown 07/17/2018 8:55 AM DIGITAL CIRCUIT DESIGNER 07/17/2018 9:11 AM DIGITAL CIRCUIT DESIGNER Chely Conteh MD LAB - CHEMISTRY ORDJay Jay LAM [facility] [address] [place] [address] * CHLAMYDIA + GC AMPLIFIED PROBE (07/06/2018 3:09 PM CDT) Chlamydia ARLYN Urine Negative Negative [facility] ACCOUNT BILL GC ARLYN Urine Negative Negative [facility] ACCOUNT BILL Microbiology URINE / Unknown 07/06/2018 3 :09 PM CDT 07/06/2018 Narrative Resulting Agency Comment [facility] [address] [facility] [address] [place] [phone] Joana Ambrose MD LAB - MICROBIOLOGY O RDERABLES [facility] ACCOUNT BILL [address] [place] [address] * (ABNORMAL) URINALYSIS - POINT OF CARE (07/06/2018 3:02 PM CDT) Only the most recent of3 resultswithin the time period is included. Clarity UA POCT cloudy Color UA POCT sabra Leukocyte UA neg Negative Nitrite UA POCT neg Negative Urobilinogen UA 3.5(A) 0.1 - 1.0 Comment:negative 3.5 umol/L Protein UA POCT +/- Negative pH UA 6.0 5.0 - 8.0 pH units Blood UA neg Negative Specific [place] UA POCT 1.025 1.002 - 1.030 Ketone UA neg Negative Bilirubin UA POCT neg Negative Glucose UA neg Negative Urine URINE / Unknown 07/06/2018 3 :02 PM CDT Joana Ambrose MD LAB - POINT OF CARE ORDERABLES * (ABNORMAL) URINALYSIS REFLEX TO MICROSCOPIC NO CULTURE (07/04/2018 11:03 AM CDT) Only the most recent of3 resultswithin the time period is included. Specific [place] UA 1.029 1.005 - 1.030 [facility] ACCOUNT BILL pH UA 5.5 5.0 - 7.5 [facility] ACCOUNT BILL Color UA Yellow Yellow [facility] ACCOUNT BILL Appearance Turbid(A) Clear [facility] ACCOUNT BILL Leukocyte UA Trace(A) Negative [facility] ACCOUNT BILL Protein UA 1+(A) Negative/Tra ce [facility] ACCOUNT BILL Glucose UA Negative Negative [facility] ACCOUNT BILL Ketone UA 2+(A) Negative [facility] ACCOUNT BILL Occult Blood Urine 1+(A) Negative [facility] ACCOUNT BILL Bilirubin UA Negative Negative [facility] ACCOUNT BILL Urobilinogen 1.0 0.2 - 1.0 mg/dL [facility] ACCOUNT BILL Nitrite UA Negative Negative [facility] ACCOUNT BILL Microscopic Examination Urine See below: [facility] ACCOUNT BILL Comment:Microscopic was karen cated and was performed. Urine MID-STREAM URINE SPECIMEN / Unknown 07/04/2018 11:03 AM CDT 07/04/2018 Narrative Resulting Agency Comment [facility] [place] [address] [address] [id number] Joana Ambrose MD LAB - URINALYSIS ORD ERABLES [facility] ACCOUNT BILL [address] [place] [address] * XR ABDOMEN KUB (07/04/2018) Only the most recent of2 resultswithin the time period is included. Anatomical Region Laterality Modality Abdomen Other Joana Ambrose MD DIAGNOSTIC IMAGING O RDERABLES * HCG URINE QUALITATIVE - POINT OF CARE (AMB) (12/14/2015) HCG Qual Urine Negative Negative QC Verified Yes Urine specimen (specimen) URINE / Unknown 12/14/2015 Joana Ambrose MD LAB - POINT OF CARE ORDERABLES * XR FOOT 3+ VW RIGHT (08/19/2015) Anatomical Region Laterality Modality Ankle / Foot Other Josh Frias DIAGNOSTIC IMAGING O RDERABLES * XR ANKLE 3+ VW LEFT (08/19/2015) Anatomical Region Laterality Modality Lower Extremity Other Josh Frias DIAGNOSTIC IMAGING O RDERABLES * XR THORACIC SPINE 3 VW (05/25/2015) Anatomical Region Laterality Modality Spine Other Joana Ambrose MD DIAGNOSTIC IMAGING O RDERABLES * PT PTT PANEL (10/17/2014 10:09 AM DIGITAL CIRCUIT DESIGNER) PT 9.9 9.5 - 11.6 sec 10/17/2014 12:41 PM DIGITAL CIRCUIT DESIGNER [facility] INR 0.9 0.9 - 1.1 10/17/2014 12:41 PM [facility] PTT 24.8 21.0 - 32.0 sec 10/17/2014 12:41 PM [facility] Blood BLOOD SPECIMEN / Unknown Lab Venipuncture / Unknown 10/17/2014 10:09 AM DIGITAL CIRCUIT DESIGNER 10/17/2014 10:42 AM DIGITAL CIRCUIT DESIGNER Narrative [facility] - 10/17/2014 12:[address] [facility] Conventional Warfarin Anticoagulant Therapy INR Reference Range: 2.0-3.0 Intensive Warfarin Anticoagulant Therapy INR Reference Range: 2.5-3.5 Heparin Therapeutic Range for PTT: 44.4 - 78.3 seconds. Nic Vidal MD LAB - COAGULATION OR DERABLES [facility] [address] [facility] [place] [address] * XR CALCANEUS 2+ VW LEFT (08/05/2014) Anatomical Region Laterality Modality Lower Extremity, Ankle / Foot Ot her Emergency Physician DIAGNOSTIC IMAGING O RDERABLES * FACTOR VIII RISTOCETIN COFACTOR (05/01/2011 11:24 AM CDT) von Willebrand Factor RCF 87 52 - 176 % [facility] BLOOD SPECIMEN / Unknown 05/01/2011 11:24 AM CDT 05/01/2011 11:28 AM CDT Narrative [facility] - 05/06/2011 9:29 AM CDT 1 Resulting Agency Comment Performed By [employer] [address] [place] [phone] Reagan Harding MD LAB - COAGULATION ORDERABLES [facility] [address] [place] [address] * COAGULATION PANEL W D-DIMER (05/01/2011 11:24 AM CDT) PT 12.7 12.2-14.5 seconds seconds [facility] INR 1.0 0.8 - 1.2 [facility] PTT 29 23-36 seconds seconds [facility] Fibrinogen 327 200-480 mg/dl mg/dl [facility] D-Dimer <200 ng/ml (normal) 0 - 200 ng/ml [facility] Platelet Count 293 100 - 400 K/cumm [facility] Disclaimer D-Dimer This qualitative latex agglutination assay may not be sensitive enough for evaluation of deep vein thrombosis and or pulmonary embolism. Quantitative D-Dimer assays are available through reference lab. [facility] BLOOD SPECIMEN / Unknown 05/01/2011 11:24 AM CDT 05/01/2011 12:30 PM CDT Reagan Harding MD LAB - COAGULATION ORDERABLES Performing Organization Address City/[facility]/ZIP Co de Phone Number [facility] [address] [place] [id number] * BORDETELLA PERTUSSIS CULTURE+PCR PNL (08/25/2009) NASOPHARYNGEAL SWAB / Unknown Joana Ambrose MD LAB - MICROBIOLOGY O RDERABLES Performing Organization Address City/[facility]/ZIP Co de Phone Number OTHER LAB Care Teams Plaster Tender Relationship Specialty Start Date End Date Machelle Hidalgo, MANAGER PEDIATRIC-WINE CONSULTANT [address] [place] [phone] PCP - General Nurse Practitioner Family 01/02/22
[2024-11-02 17:17] LABS: Free T4 Free Thyroxine Reflex 0.68 ng/dL (0.78-2.19)
== END 2024-11-02 14:37 | disposition home or self-care (01) ==
PROVIDERS: Nurse Practitioner Family; PCP Nurse Practitioner Family; Visit Provider Nurse Practitioner Family
DX: Z13.220 Encounter for screening for lipoid disorders (principal); Z13.1 Encounter for screening for diabetes mellitus; Z13.0 Encounter for screening for diseases of the blood and blood-forming organs and certain disorders involving the immune mechanism; R20.2 Paresthesia of skin; E56.9 Vitamin deficiency, unspecified
CPT/HCPCS: 36415; 80053; 80061; 82306; 82607; 82728; 82746; 83036; 83540; 83550; 84439; 84443; 85027

== ENCOUNTER 2025-01-28 12:20 | Outpatient (CLI) | payer BC, SELFPAY ==
--- OUTSIDE RECORDS SUMMARY | 2025-01-28 12:24 | XMS_ITS | Data Portability ---
Author Organization [facility], Main Office Address [address] [place] [address] Care Team Providers Care Salvage Grinder Name Role Phone JESSICA FISHER Primary Care Provider JESSICA FISHER Referring Provider [phone] Assessment No assessment recorded. Plan of Treatment Reminders Order Date Submit Date Provider Last Modified By Organization Details Last Modified Time Details Appointments None recorded. Lab None recorded. Referral None recorded. Procedures None recorded. Surgeries None recorded. Imaging None recorded. Medication Orders hydroxyzine HCl 50 mg tablet [address] [facility]armacy #[id number], [address] [place], [address], 12:49:32 duloxetine 60 mg capsule,del ayed release [address] [facility] #[id number], [address] [place], [address], 12:49:30 Patient TargetsNo targets recorded. Patient Instructions Encounter Date Encounter Id Patient Instructions Last Modified By Organization Details Last Modified Time 01/14/2023 [id number] 3-4 mo fu anxiety, ptsd, depression, acne, etc. Not available 01/14/2023 12:53:29 05/06/2023 [id number] FU in 6 mo for anxiety/depressio n, acne Not available 05/06/2023 12:53:00 Reason for Referral None Reported. Results Created Date Observation Date Name Description Value Unit Range Abnormal Flag Note LastModifiedBy Organization Detail LastModifiedTime Result Notes None recorded. Problems Name Problem SNOMED Code Status Onset Date Resolution Date Notes Provider Name and Address Organization Details Recorded Time Depressive disorder 69287963 Active 2021 Not Available [facility] 3 17:44:01 Posttraumatic stress disorder 62277789 Active 2021 Not Available [facility] 3 17:44:01 Anxiety 61450995 Active 2022 Machelle Hidalgo NP [address] [facility], [facility] [address], [place], [address] , [employer] 3 12:48:46 Acne 32391120 Active 2022 Machelle Hidalgo NP [address] [facility], [facility] [address], [place], [address] , [employer] 3 12:57:16 Problem Notes None recorded. Procedures Surgical History Date Name Laterality Status Provider Name and Address Organization Details Recorded Time biopsy of lymph node completed Not Available [facility] 11/06/2022 17:43:02 EGD completed Not Available [facility] 09/2022 17:43:02 nasal cautery completed Not Available [facility] 11/06/2022 17:43:02 tonsillectomy and adenoidectomy completed Not Available [facility] 11/06/2022 17:43:02 Imaging Results None recorded. Procedure [...] % 90 /min 18 /min 98.4 [degF] 76185.5 6 g 102 mm[Hg] 70 mm[Hg] Not Available [facility] 3 17:43:36 Date Recorded Body mass index (BMI) Body height Oxygen saturation Oxygen saturation in Arterial blood by Pulse oximetry Heart rate Respiratory rate Body temperature Body weight Systolic blood pressure Diastolic blood pressure Provider Name and Address Organization Details Last Updated DateTime 3 25.6 kg/m2 160.02 cm 98 % 98 % 77 /min 16 /min 99.1 [degF] 03373.4 6 g 104 mm[Hg] 62 mm[Hg] Not Available [facility] 3 17:43:36 Date Recorded Body mass index (BMI) Body height Oxygen saturation Oxygen saturation in Arterial blood by Pulse oximetry Heart rate Respiratory rate Body temperature Body weight Systolic blood pressure Diastolic blood pressure Provider Name and Address Organization Details Last Updated DateTime 3 26.6 kg/m2 160.02 cm 98 % 98 % 59 /min 16 /min 98.3 [degF] 85772.2 1 g 106 mm[Hg] 70 mm[Hg] Not Available [facility] 3 17:43:36 Date Recorded Body height Body mass index (BMI) Percentile per age and sex Body mass index (BMI) Body weight Body temperature Heart rate Respiratory rate Oxygen saturation Oxygen saturation in Arterial blood by Pulse oximetry Systolic blood pressure Diastolic blood pressure Provider Name and Address Organization Details Last Updated DateTime 3 160.02 cm 83 % 26.2 kg/m2 14812.3 7 g 98.4 [degF] 84 /min 16 /min 97 % 97 % 108 mm[Hg] 74 mm[Hg] Machelle Greenwood RN [facility] [email or web address] [facility] 3 12:31:58 Date Recorded Body height Body mass index (BMI) Body mass index (BMI) Percentile per age and sex Body weight Body temperature Heart rate Respiratory rate Oxygen saturation Oxygen saturation in Arterial blood by Pulse oximetry Systolic blood pressure Diastolic blood pressure Provider Name and Address Organization Details Last Updated DateTime 3 160.02 cm 26.4 kg/m2 83 % 59587.0 1 g 96.3 [degF] 80 /min 16 /min 98 % 98 % 130 mm[Hg] 82 mm[Hg] Machelle Greenwood RN [facility] [email or web address] [facility] 3 12:33:59 Social History Question Answer Notes LastModified by Organization Details LastModified Time Tobacco Smoking Status Never Smoker Not Available [facility] 11/06/2022 17:42:58 Do You Have An Advance Directive? No Information not available 01/14/2023 Do You Wear A Helmet When Biking? Yes [id number] Information not available 11/06/2022 Is Blood Transfusion Acceptable In An Emergency? Yes Information not available 01/14/2023 What Is Your Level Of Caffeine Consumption? Moderate [id number] Information not available 11/06/2022 What Is Your Code Status? Full Code Information not available 01/14/2023 In The 14 Days Before Symptom Onset, Have You Had Close Contact With A Laboratory-confi rmed COVID-19 While That Case Was Ill? No [id number] Information not available 11/06/2022 In The 14 Days Before Symptom Onset, Have You Had Close Contact With A Person Who Is Under Investigation For COVID-19 While That Person Was Ill? No MIGRATION.0301 [id number] Information not available 11/06/2022 What Type Of Diet Are You Following? REGULAR MIGRATION.0301 [id number] Information not available 11/06/2022 Which Illicit Or Recreational Drugs Have You Used? Ashleya MIGRATION.0301 798339 Information not available 11/06/2022 What Is The Highest Grade Or Level Of School You Have Completed Or The Highest Degree You Have Received? [id number] MIGRATION.0301 [id number] Information not available 11/06/2022 Have There Been Any Changes To Your Family Or Social Situation? No MIGRATION.0301 768932 Information not available 11/06/2022 Do You Use Insect Repellent Routinely? Yes MIGRATION.0301 [id number] Information not available 11/06/2022 Where Do You Live? [place]House MIGRATION.0301 236716 Information not available 11/06/2022 Do You Have A Medical Power Of Medical Research Associate? No Information not available 01/14/2023 Do You Have Any Pets? Yes Information not available 01/14/2023 What Is Your Relationship Status? Single MIGRATION.0301 726260 Information not available 11/06/2022 Do You Use Your Seat Belt Or Car Seat Routinely? Yes MIGRATION.0301 [id number] Information not available 11/06/2022 Do You Have Smoke And Carbon Monoxide Detectors In Your Home? Yes Information not available 01/14/2023 Are You Passively Exposed To Smoke? No MIGRATION.0301 775630 Information not available 11/06/2022 Are There Any Smokers In Your House? No MIGRATION.0301 484224 Information not available 11/06/2022 Do You Participate In Social Media? Yes MIGRATION.0301 087130 Information not available 11/06/2022 Do You Use Sunscreen Routinely? Yes MIGRATION.0301 172502 Information not available 11/06/2022 Have You Recently Traveled Abroad? No MIGRATION.0301 731572 Information not available 11/06/2022 Are You Currently In School? Yes [employer] Information not available 01/14/2023 Do You Have Any Dietary Restrictions? No MIGRATION.0301 972589 Information not available 11/06/2022 Sex: Female Functional Status Question Answer Note LastModified by Organizat [employer] Details LastModified Time Do you use any illicit or recreational drugs? Yes MIGRATION.[id number] 26 Information not available 11/06/2022 What is your level of alcohol consumption? None MIGRATION.13672562 26 Information not available 11/06/2022 Are you currently employed? Yes Information not available 01/14/2023 What is your occupation? [employer] Information not available 01/14/2023 What is your exercise level? Moderate MIGRATION.44696099 26 Information not available 11/06/2022 Mental Status Question Answer Note LastModified by Organizat ion Details LastModified Time Do you feel stressed (tense, restless, nervous, or anxious, or unable to sleep at night)? [id number] MIGRATION.[id number] 6 Information not available 11/06/2022 Family History Relationship Description Onset Age of this Age Resolved Age Notes LastModified by Organization Details LastModified Time Mother Nodule of liver MIGRATION.185 [id number] Not available 11/06/2022 17:43:03 Mother Malignant neoplasm of skin MIGRATION.238 5372557 Not available 11/06/2022 17:43:03 Father Hypothyroidi sm MIGRATION.235 8692245 Not available 11/06/2022 17:43:03 Father Gout MIGRATION.087 1582460 Not available 11/06/2022 17:43:03 Father Hyperkeratos is lenticularis perstans MIGRATION.239 2652433 Not available 11/06/2022 17:43:03 Maternal Grandmother Diabetes mellitus MIGRATION.366 6552399 Not available 11/06/2022 17:43:03 Maternal Grandmother Hypertensive disorder MIGRATION.465 9483230 Not available 11/06/2022 17:43:03 Maternal Grandmother Hyperkeratos is lenticularis perstans MIGRATION.092 4142869 Not available 11/06/2022 17:43:03 Maternal Grandfather Coronary arterioscler osis MIGRATION.798 9060776 Not available 11/06/2022 17:43:03 Maternal Grandfather Hypertensive disorder MIGRATION.994 1366792 Not available 11/06/2022 17:43:03 Maternal Grandfather Basal cell carcinoma of skin MIGRATION.046 7262881 Not available 11/06/2022 17:43:04 Paternal Grandfather Hyperkeratos is lenticularis perstans MIGRATION.602 [id number] Not available 11/06/2022 17:43:04 Paternal Grandfather Hypothyroidi sm MIGRATION.553 2636198 Not available 11/06/2022 17:43:04 Paternal Grandfather Diabetes mellitus MIGRATION.499 8213276 Not available 11/06/2022 17:43:04 Paternal Grandfather Coronary arterioscler osis MIGRATION.220 [id number] Not available 11/06/2022 17:43:04 Paternal Grandfather Malignant tumor of colon MIGRATION.993 6016707 Not available 11/06/2022 17:43:04 Paternal Grandmother Hyperthyroid ism MIGRATION.668 0671027 Not available 11/06/2022 17:43:04 Paternal Grandmother Hypothyroidi sm MIGRATION.639 9300901 Not available 11/06/2022 17:43:04 Medical History Condition Response BLINDNESS N RHEUMATIC FEVER N BLADDER PROBLEMS N KIDNEY STONES N MRSA N OTHER # 1 N POLIO N LUNG DISEASE/DISORDER N HISTORY OF DRUG ABUSE N RADIATION / CHEMOTHERAPY N COPD N Other # 2 N BLOOD DISEASES N SURGERY N EAR OR HEARING PROBLEMS N MUMPS N SHINGLES N DEPRESSION (INCLUDING POST ) Y FEMALE PROBLEMS / INFECTIONS N BOWEL PROBLEMS N STROKE/TIA N THYROID DISEASE N ULCERS N BENIGN PROSTATIC HYPERPLASIA N MEASLES N CERVICALGIA N HYPOTENSION N TB SKIN TEST N MYOCARDIAL INFARCTION N PARAPELGIA N OBESITY N GERD/NAUSEA N ANEURYSM N URINARY/BLADDER/KIDNEY PROBLEMS [...] HAVE YOU BEEN HOSPITALIZED OR SEEN IN [facility] IN THE PAST YEAR ? N ATHEROSCLEROSIS [...] SNOMED-CT Code Diagnosis ICD10 Code Diagnosis Note [id number] Manish Montana MD [address] [address] 12/17/2021 00:00:00 12/17/2021 14:48:41 [id number] Manish Montana MD [address] [address] 01/24/2022 00:00:00 01/24/2022 16:35:44 [id number] Machelle Hidalgo NP [address] [address] 03/19/2022 00:00:00 03/19/2022 14:19:37 [id number] Manish Montana MD [address] [address] 08/21/2022 00:00:00 08/21/2022 12:18:38 [id number] Manish Montana MD [address] [address] 09/20/2022 00:00:00 09/20/2022 15:50:48 [id number] Manish Montana MD [address] [address] 10/18/2022 00:00:00 10/18/2022 15:31:29 [id number] Machelle Hidalgo NP [address] [address] 01/14/2023 12:16:17 01/14/2023 12:54:37 Depressive disorder 25183743 F32.A Duloxetine 60 mg po daily. DC 30 mg. Posttrauma tic stress disorder 56792507 F43.10 Stable. Anxiety 76817193 F41.9 Hydroxyzin e 50 mg po tid prn. Acne 90978227 L70.9 doing well on benzyl peroxide cleanser. Tretinoin 0.025% nightly. [id number] Machelle Hidalgo NP [address] [address] 05/06/2023 12:14:09 05/06/2023 12:55:19 Depressive disorder 49196703 F32.A Duloxetine 60 mg po daily.Hydr oxyzine. Acne 74303955 L70.9 doing well on benzyl peroxide cleanser. Tretinoin 0.025% nightly. Health Concerns Section Related Observation LastModified by Organization Detai ls LastModified Time None Recorded Concern Status LastModified by Organization Details LastModified Time None Recorded Advance Directives Directive N: Payers Encounter Date Sequence Insurance Name Policy Number Policy Frederick Covered Member ID Frederick Member ID Guarantor Name 01/14/2023 1 [employer] [id number] Glenroy Mac [id number] Shawnee Mac 05/06/2023 1 [employer] [id number] Glenroy Mac [id number] Shawnee Mac Notes Date Note Type Note [...] scrub. Machelle Hidalgo NP [address], [place], [address], [employer] 01/14/2023 12:58:17 05/06/2023 text/html Here for med check. 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 Machelle Hidalgo NP [address], [facility], [place], [address], [employer] 05/06/2023 12:53:36 OBGyn Episode No OBEpisode recorded.
--- OUTSIDE RECORDS SUMMARY | 2025-01-28 12:24 | XMS_ITS | Clinical Summary ---
Author Organization [facility] Address [address] [place] [address] Care Team Providers Care Data Warehouse Consultant Name Role Phone Machelle Hidalgo SEASONAL RETAIL MERCHANDISER-CARBONIZER Primary Care Provider Source Comments [facility],non-owned Affiliates and Associated Physician Practices is amultiple site organization consisting of ambulatory clinics and hospital sitesin [place], [place], [place] and [place]. This disclosure is being madepursuant to the Care Everywhere program and may not contain all information available regarding this patient. Last updated 18.[facility] Allergies No known active allergies Medications * This document contains information received from the source organization and may not represent a complete record from that organization. * Be aware that medications may not be up to date on this document. Alwaysverify current medications with the patient. mupirocin (BACTROBAN) 2 % ointment Apply to affected area 3 times daily 22 g 2 Active benzoyl peroxide (Benzac) 5 % wash benzoyl peroxide 5 % topical cleanser APPLY THIN LAYER TOPICALLY TO THE AFFECTED AREA EVERY DAY Active DULoxetine (Cymbalta) 30 MG capsule Take 1 (one) capsule by mouth once daily 3 Active Active Problems Problem Noted Date Diagnosed Date Urinary frequency 08/21/2021 Urinary urgency 08/21/2021 Mild protein-calorie malnutrition 07/28/2021 Abdominal pain, periumbilical 07/21/2021 Assessment & Plan (07/27/2021 10:55 AM MATERIAL LIAISON): Assessment: Shawnee Mosqueda is a 21 year [...] today Assessment & Plan (07/26/2021 11:46 AM MATERIAL LIAISON): Assessment: Shawnee Mosqueda is a 21 year [...] ox Assessment & Plan (07/25/2021 1:49 PM MATERIAL LIAISON): Assessment: Shawnee Mosqueda is a 21 year [...] ox Assessment & Plan (07/24/2021 5:26 PM MATERIAL LIAISON): Assessment: Shawnee Mosqueda is a 21 year [...] ox Assessment & Plan (07/23/2021 5:12 PM MATERIAL LIAISON): Assessment: Shawnee Mosqueda is a 21 year [...] ox Assessment & Plan (07/22/2021 3:21 PM MATERIAL LIAISON): Assessment: Shawnee Mosqueda is a 21 year [...] EGD and US in 2018. Seen at [facility] ED one day prior and had CT [...] ox Assessment & Plan (07/22/2021 1:19 AM MATERIAL LIAISON): Assessment: Shawnee Mosqueda is a 21 year [...] EGD and US in 2018. Seen at [facility] ED one day prior and had CT [...] loss. Plan: - Admit to General Medicine, [place] team Dr. Stafford - Clear liquid diet - mIVF D5NS 100 ml/hr - Pain management: - Toradol 30 mg q6 3 doses - Tylenol prn for mild/moderate pain - Dilaudid prn for sever pain - Consider GI consult and abdominal ultrasound imaging in AM - Obtain CT from [place] - Consider adolescent medicine and rheumatology consults [...] 07/28/2019 Assessment & Plan (08/02/2019 6:27 PM MATERIAL LIAISON): Assessment: Janice Mosqueda is a 19 year old F admitted for fever is currently undergoing a workup for Castleman's vs Kikuchis vs malignancy. Plan: -see plan for fever Assessment & Plan (08/01/2019 9:05 AM MATERIAL LIAISON): Assessment: Janice Mosqueda is a 19 year old F admitted for fever is currently undergoing a workup for Castleman's vs Kikuchis vs malignancy. Plan: -see plan for fever -biopsy FridayAug 02. Discharge after when stable. Assessment & Plan (07/31/2019 10:24 AM MATERIAL LIAISON): Assessment: Janice Mosqueda is a 19 year old F admitted for fever is currently undergoing a workup for Castleman's vs Kikuchis vs malignancy. Plan: -see plan for fever Assessment & Plan (07/30/2019 11:46 AM MATERIAL LIAISON): Assessment: Janice Mosqueda is a 19 year old F admitted for fever is currently undergoing a workup for Castleman's vs Kikuchis vs malignancy. Plan: -see plan for fever Irregular periods 07/14/2018 Weight loss 07/07/2018 Assessment & Plan (07/24/2021 5:05 PM MATERIAL LIAISON): Assessment: Shawnee is a 21 yo with [...] 08/11/2019 Assessment & Plan (08/02/2019 6:27 PM MATERIAL LIAISON): Assessment: Shawnee Mosqueda is a 19 year [...] 100.4 Assessment & Plan (08/01/2019 9:04 AM MATERIAL LIAISON): Assessment: Shawnee Mosqueda is a 19 year [...] rheum Plan: - Admitted to Pediatrics, Dr. Figueroa - Diet Regular - mIVF @125mL/hr - Continue Doxycycline for Mycoplasma treatment - Tylenol/Motrin PRN for fever and pain - ID and Rheum following - VS q8H - Is and Os - Neuro checks q4 - Blood culture for fever spikes greater then 101F Assessment & Plan (07/31/2019 10:24 AM MATERIAL LIAISON): Assessment: Sahwnee Mosqueda is a 19 year old female [...] 101F Assessment & Plan (07/30/2019 11:45 AM MATERIAL LIAISON): Assessment: Shawnee Mosqueda is a 19 year [...] Plan: - Admitted to Pediatrics, Dr. Henry Tierney Regular - mIVF @125mL/hr - Continue Doxycycline for Mycoplasma treatment - Tylenol/Motrin PRN for fever and pain - ID and Rheum following - VS q8H - Is and Os - Neuro checks q4 Assessment & Plan (07/27/2019 7:56 PM MATERIAL LIAISON): Assessment: Shawnee Mosqueda is a 19 year [...] vestibulitis 05/29/2011 4 Epistaxis 05/01/2011 12/20/2013 Immunizations Immunization Administration Dates Next Due [employer] primary monoval ent 12+ yr 0.3mL Purple cap 05/16/2021,04/25/2021 DTaP VACCINE IM (6wk-6yrs) 08/04/2006,,2002,10/21,2002 HEP A PEDS 2 DOSE 07/30/2005,07/09/2004 HEP B VACCINE, PED/ADOL 03/24/2003,2002, HIB BOOSTER 12/27/2003, 3,2002,08/23 Human Papilloma Virus [place] valent Vaccine 01/19/2015,03/10/2014,12/20/2013 INFLUENZA VACCINE 06/19/2009, 8,06/15/2007,08/04 INFLUENZA VACCINE, QUADR. (F LUZONE; FLULAVAL; FLUARIX; AFLURIA QUADRIVALENT; 6MO+), 0.5 ML (IIV4) 07/03/2021,06/06/2020,07/12/2019,05/29 MENINGOCOCCAL ACWY (MCV4P) VAC IM 02/09/2019,11/2014 MMR 12/22/2007,06/28/2003 PNEUMOCOCCAL CONJ, PEDS 06/28/2003,12/23,2002,08/23 POLIO [...] Date Recorded PHQ2 TOTAL SCORE 2 10/05/2021 Comments No Sex and Gender Information Value Date Recorded Sex Assigned at Not on file Legal Sex Female 5:41 AM MATERIAL LIAISON Gender Identity Not on file Sexual Orientation Not on file Last Filed Vital Signs Vital Sign Reading Time Taken Comments Blood Pressure 100/72 12/17/2022 2:30 PM CDT Pulse 65 10/05/2021 12:44 PM MATERIAL LIAISON Temperature 36.9 C (98.4 F) 07/27/2021 12:30 PM MATERIAL LIAISON Respiratory Rate 20 07/27/2021 12:30 PM MATERIAL LIAISON Oxygen Saturation 99% 07/27/2021 12:30 PM MATERIAL LIAISON Inhaled Oxygen Concentration 100% 07/23/2021 8 :15 AM MATERIAL LIAISON Weight 65.5 kg (144 lb 6.4 oz) 12/17/2022 2:30 PM CDT Height 160.2 cm (5' 3.07 ) 12/17/2022 2:30 PM CD T Body Mass Index 25.52 12/17/2022 2:30 PM CDT Plan of Treatment Health Maintenance Due Date Last Done Comments PAP SMEAR 2002 MENINGOCOCCAL (Group B) VACC INE SHARED DECISION-MAKING (1 of 2 - Standard) 2018 HEPATITIS C SCREENING 06/15/2020 CHLAMYDIA/GONORRHEA SCREENING 07/21/2022, 07/28/2019, 07/06/2018 DTAP/TDAP/TD VACCINES (7 - T d or Tdap) 12/21/2023 12/20/2013, 08/04/2006, 12/27/2003, Additional history exists COVID-19 VACCINE (2023-2 5 season) 2024 05/16/2021, 04/25/2021 DEPRESSION SCREENING 09/08/2024 07/02/2022, 03/02/2020, 03/02/2020 INFLUENZA VACCINE (Season Ended) 2025 07/03/2021, 06/06/2020, 07/12/2019, Additional history exists ZOSTER VACCINE (1 of 2) 2052 HEPATITIS B VACCINE Completed 03/24/2003, 2002, 2002 PNEUMOCOCCAL VACCINE Completed 06/28/2003, 2002, 2002, Additional history exists HIB VACCINE Completed 12/27/2003, 12/07, 2002, Additional history exists HPV VACCINE Completed 01/19/2015, 11/2013, 12/20/2013 MENINGOCOCCAL GROUPS A/C/Y/W VACCINE Completed 02/09/2019, 04/10/2015 HIV SCREENING Completed 07/28/2019 Goals Goal Patient Goal Type Associated Problems Recent Progress Patient-Stated? Author Use safety retraint in car Lifestyle On track( 020 2:19 PM CDT) Sonia Purvis, experimental mechanic Procedure Name Priority Date/Time Associated Diagnosis Comments CHLAMYDIA + GC AMPLIFIED PROBE STAT 07/21/2021 10:58 PM MATERIAL LIAISON HIV-1 HIV-2 ANTIBODY + HIV P24 AG PANEL Routine 07/28/2019 5:51 PM MATERIAL LIAISON from Last 3 Months or Most Recently Relevant to Health Maintenance Results * CHLAMYDIA + GC AMPLIFIED PROBE (STL) (07/21/2021 10:58 PM MATERIAL LIAISON) Chlamydia Amplified Probe Negative Negative 07/22/2021 10:04 AM MATERIAL LIAISON [facility] GC Amplified Probe Negative Negative 07/22/2021 10:04 AM MATERIAL LIAISON [facility] Microbiology URINE / Unknown Collection / Unknown 07/21/2021 10:58 PM MATERIAL LIAISON 07/22/2021 1:13 AM MATERIAL LIAISON Narrative [facility] - 07/22/2021 10:04 AM MATERIAL LIAISON Results based on detection/no detection of ribosomal RNA by amplified method. Radha Solorio MD LAB - MICROBIOLOGY ORDERABLE S Final Result [facility] [address] [place] [address], [facility] [phone] * HIV-1 HIV-2 ANTIBODY + HIV P24 AG PANEL (07/28/2019 5:51 PM MATERIAL LIAISON) Pathologist [facility] [place] HIV1/2 Ab + P24 Ag Non Reactive Non Reactive 07/28/2019 7:06 PM MATERIAL LIAISON [facility] Blood BLOOD SPECIMEN / Unknown Lab Venipuncture / Unknown 07/28/2019 5:51 PM MATERIAL LIAISON 07/28/2019 6:22 PM MATERIAL LIAISON Narrative [facility] - 07/28/2019 7:06 PM MATERIAL LIAISON No Laboratory evidence of HIV infection. us Navarro Dorsey MD LAB - CHEMISTRY ORDERABL ES Final Result [facility] [address] [place] [address] from Last 3 Months or Most Recently Relevant to Health Maintenance Insurance [employer] Advance Directives * Full Code (Latest Code Status on File) Date Activated Date Inactivated Comments 07/21/2021 11:21 PM 07/27/2021 3:06 PM * Full Code Date Activated Date Inactivated Comments 07/28/2019 1:04 AM 08/03/2019 1:24 PM Care Teams Data Warehouse Consultant Relationship Specialty Start Date End Date Machelle Hidalgo, SEASONAL RETAIL MERCHANDISER-CARBONIZER [address] [place] [id number] PCP - General Nurse Practitioner Family 01/02/22
--- OUTSIDE RECORDS SUMMARY | 2025-01-28 12:24 | XMS_ITS | Data Portability ---
Author Organization [facility] [place] Address [address] [place] [address] Assessment Encounter Date Assessment Date Assessment LastModified by Organization Details LastModified Time 03/28/2021 03/28/2021 Annual gynecological exam performed. Patient will come back in a year unless there are new symptoms. Not available 03/28/2021 11:02:08 11/04/2024 11/04/2024 Annual gynecological exam performed. Patient will come back in a year unless there are new symptoms. [email or web address] Not available 11/04/2024 17:00:08 Plan of Treatment Reminders Order Date Submit Date Provider Last Modified By Organization Details Last Modified Time Details Appointments None recorded. Lab test, urine 2020 021 [place], [address], [place], [address], 13:26:08 Referral None recorded. Procedures None recorded. Surgeries None recorded. Imaging None recorded. Medication Orders None recorded. Patient TargetsNo targets recorded. Patient InstructionsNo instructions recorded. Reason for Referral None Reported. Results Created Date Observation Date Name Description Value Unit Range Abnormal Flag Note LastModifiedBy Organization Detail LastModifiedTime 05/03/2005/03/2021 pregn maged test, urine HCG negati ve Not Available [place] [address], [place], [address], 05/03/2021 13:25:52 11/04/19 25 11/04/2024 IMAGE GUIDE D PAP, REFLE X HPV IF ASCUS ONLY image guided Pap, reflex HPV ASCUS only SEE RESULT S BELOW CASE REPOR T: Cytol ogy Gynec ologi sandy Repor t Case: [id number] Autho romario wallis Provi katt: Marah Davidson, MATI Monte cted: 11/04 1648 Order ing Locat ion: [place] Patho lognain Good sachi: 11/05 0951 First Scree n: Chris Garcia, CT Speci men: Tom michel Pap - Image d, Cervi x STATE MENT OF ADEQU ACY: Satis facto ry for evalu ation Trans forma tion zone compo nent prese nt ----- ----- ----- ----- ----- ----- ----- ----- ----- ----- ----- ----- ----- ----- ----- ----- ----- ---- FINAL DIAGN OSIS: Negat hailey for Intra epith elial Lesio n or Pippa dunn (NIL) . Shift in logan sugge stive of bacte rial vagin osis. 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 CLINI SANDY INFOR MATIO N: Menst rual Statu s: LMP (if appli cable ): Clini sandy Histo ry/Pr eviou s Pap: Type of Neopl rasheeda (if appli cable ): Signi fican t Clini sandy Findi ngs: Other Histo ry: Hormo froilan (if appli cable ): PAP EDUCA BRITTANIE L NOTE: The Pap Test is a scree anand test with an inher ent false negat hailey rate. Liqui d-bas ed sampl ing may decre ase, but will not elimi emanuel, false negat hailey resul ts. A negat hailey resul t does not precl ude the prese nce and/o r devel opmen t of disea se, since the prese nce of abnor mal cells in the sampl e depen ds on the locat ion of the lesio n and sampl ing techn ique. Moraima nued regul ar scree anand is the best metho d of cance r preve ntion . If repor dennys cytol ogic findi ng do not corre late with physi sandy and/o r histo rical findi ngs, furth er inves tigat ion is recom paige d, as clini regino warranabela nted. Not Available [facility] (Lab) [address], [place], [address], 11/09/2024 10:53:20 11/04/19 25 11/04/2024 TRICH OMONA S VAGIN KAY (RRNA ) trichomonas vaginalis ribosomal RNA (rrna) Negati ve negati ve Not Available [facility] (Lab) [address] [place], [address], 11/09/2024 10:53:20 11/04/19 25 11/04/2024 CT/GC (OLYA) , THINP REP VIAL chlamydia trachomatis, PCR Negati ve negati ve Not Available [facility] (Lab) [address] [place], [address], 11/09/2024 10:53:21 11/04/19 25 11/04/2024 CT/GC (OLYA) , THINP REP VIAL neisseria gonorrhoeae, PCR Negati ve negati ve Not Available [facility] (Lab) [address], [place], [address], 11/09/2024 10:53:21 Result Notes None recorded. Problems Name Problem SNOMED Code Status Onset Date Resolution Date Notes Provider Name and Address Organization Details Recorded Time Finding of pattern of menstrua l cycle 851138385 Completed 201703/28/2021 Excessive and frequent menstruat ion with irregular cycle;Pra ctice ID: [address] [facility] 1 11:12:07 Pregnanc y test negative [id number] Completed 201703/28/2021 Encounter for test, result negative; Practice ID: 0001 Rebekah [facility] 11:12:[address] Concept Completed 201703/28/2021 Encntr for routine child health exam w/o abnormal findings; Recorded Elsewhere : No Locati on: [facility] So urce: EHR Chron ic: N Practic e ID: 0001 Bill able Time: 03:30:00 PM Rebekah [facility] 11:12:11 Surveill ance of contrace ption Completed 201503/28/2021 Encounter for surveilla nce of contracep tives, unspecifi ed;Record ed Elsewhere : No Locati on: [facility] So urce: EHR Chron ic: N Practic e ID: 0001 Bill able Time: 03:45:00 PM Rebekah [facility] 11:12:[address] Concept Completed 201703/28/2021 Well woman check w/o abnormal finding;R ecorded Elsewhere : No Locati on: [facility] So urce: EHR Chron ic: N Practic e ID: 0001 Bill able Time: 03:30:00 PM Rebekah [facility] 11:12:13 Clinical finding Completed 201503/28/2021 Presence of (intraute rine) contracep tive device;Re corded Elsewhere : No Locati on: [facility] So urce: EHR Chron ic: N Practic e ID: 0001 Bill able Time: 12:45:00 PM [address]ah [address] [facility] 1 11:12:04 Finding of pattern of menstrua l cycle Completed 201503/28/2021 Other specified irregular menstruat ion;Recor ded Elsewhere : No Locati on: [facility] So urce: EHR Chron ic: N Practic e ID: 0001 Bill able Time: 03:00:00 PM [address] [facility] 1 11:12:05 Insertio n of intraute rine contrace ptive device Completed 201503/28/2021 Encounter for insertion of intrauter ine contracep tive device;Re corded Elsewhere : No Locati on: [facility] So urce: EHR Chron ic: N Practic e ID: 0001 Bill able Time: 12:45:00 PM [address] [place] [facility] 1 11:12:08 Problem Notes None recorded. Procedures Surgical History Date Name Laterality Status Provider Name and Address Organization Details Recorded Time IUD Removal completed Jadyn Niño [facility] [address], [place], [address], [facility] 05/03/2021 13:43:11 IUD Insertion completed Jadyn Niño [facility] [address], [place], [address], [facility] 05/03/2021 13:45:36 nasal cautery completed Joana Chaudhary [facility] 03/01/2020 11:39:28 biopsy of neck completed ESTELA Simmons [facility] 11/04/2024 16:46:18 Imaging Results None recorded. Procedure Notes None recorded. Medical Equipment None Reported. Allergies No known drug allergies Medications Name Sig Start Date Stop Date Status Note LastModified by Organization Details LastModified Time Mirena 21 mcg/24 hr (up to 8 years) 52 mg intrauter ine device Take by intraute rine route. active Not Available Not Available No t Available doxycycli ne hyclate 100 mg capsule TAKE ONE PILL TWICE DAILY WITH A MEAL UNTIL GONE. 11/04 completed Not Available Not Available Not Available Zovia 1/35E (28) 1 mg-35 mcg tablet take 1 tablet by oral route every day 03/28 completed Prescrib ed Elsewher e: No [facility] By: selam Irizarry ncounter DateTime : 06/11/20 16 02:45:00 PM Not Available Not Available Not Available tretinoin 0.025 % topical cream APPLY THIN LAYER TO AFFECTED AREAS BEFORE BEDTIME AFTER WASHING. LAYER WITH MOISTURI ZER NEEDED. 11/04 completed Not Available Not Available Not Available Depo-Prov era 400 mg/mL intramusc ular suspensio n inject 1 millilit er by intramus cular route every month 03/28 completed Prescrib ed Elsewher e: Yes Loca tion: [facility] odify By: selam Irizarry ncounter DateTime : 06/11/20 02:45:00 PM Not Available Not Available Not Available ondansetr on HCl 4 mg tablet TAKE 1 TABLET (4 MG) BY MOUTH EVERY 8 HOURS NEEDED FOR NAUSEA AND VOMITING 11/04 completed Not Available Not Available Not Available spironola ctone 100 mg tablet TAKE ONE TABLET ONCE DAILY WITH A FULL GLASS OF WATER. active Not Available Not Available No t Available hydroxyzi ne HCl 50 mg tablet TAKE 1 TABLET BY MOUTH EVERY DAY NEEDED FOR ANXIETY 11/04 completed Not Available Not Available Not Available sulfameth oxazole 800 mg-trimet hoprim 160 mg tablet TAKE 1 TABLET BY MOUTH EVERY 12 HOURS 03/28 completed Not Available Not Available Not Available ketorolac 10 mg tablet TAKE 1 TABLET BY MOUTH EVERY 8 HOURS NEEDED FOR MIGRAINE MAX TOTAL DURATION 5 DAYS 11/04 completed Not Available Not Available Not Available Zofran 8 mg tablet take 1 tablet by oral route every 8 hours for 2 days 11/04 completed Prescrib ed Elsewher e: Yes Loca tion: [facility] odify By: selam jimenez DateTime : 06/11/20 16 02:45:00 PM Not Available Not Available Not Available Metrogel Vaginal 0.75 % (37.5 mg/5 gram) insert 1 applicat orful by vaginal route for 5 nights at bedtime 03/28 completed Prescrib ed Elsewher e: No Locat ion: [facility] ir[facility] odify By: john jimenez DateTime : 07/20/20 18 09:46:45 AM Not Available Not Available Not Available ciproflox acin 0.3 % eye drops 11/04 completed Not Available Not Available Not Available levothyro xine 50 mcg tablet 11/04 completed Not Available Not Available Not Available ibuprofen 400 mg tablet 03/28 completed Not Available Not Available Not Available fluoxetin e 10 mg capsule TAKE 1 (ONE) CAPSULE BY MOUTH EVERY MORNING 11/04 completed Not Available Not Available Not Available hydroxyzi ne HCl 25 mg tablet TAKE 1 TABLET BY MOUTH EVERY 6 HOURS NEEDED FOR ITCHING 11/04 completed Not Available Not Available Not Available ibuprofen 600 mg tablet TAKE 1 TABLET BY MOUTH EVERY 6 HOURS NEEDED FOR PAIN 03/28 completed Not Available Not Available Not Available fluoxetin e 20 mg capsule TAKE 1 (ONE) CAPSULE BY MOUTH ONCE DAILY 03/28 completed Not Available Not Available Not Available spironola ctone 50 mg tablet TAKE ONE TABLET THREE TIMES DAILY WITH A FULL GLASS OF WATER. 11/04 completed Not Available Not Available Not Available Topamax 100 mg tablet take 2 tablet by oral route 2 times every day 03/28 completed Prescrib ed Elsewher e: Yes Loca tion: [facility] odify By: selam jimenez DateTime : 06/11/20 16 02:45:00 PM Not Available Not Available Not Available oxycodone 5 mg tablet 03/28 completed Not Available Not Available Not Available Benadryl 25 mg capsule take 2 capsule by oral route every 4 - 6 hours as needed 11/04 completed Prescrib ed Elsewher e: Yes Loca tion: Aprilrichy juan c [facility] odify By: lsloan E ncounter DateTime : 06/11/20 16 02:45:00 PM Not Available Not Available Not Available nitrofura ntoin monohydra te/macroc rystals 100 mg capsule TK 1 C PO Q 12 H FOR 10 DAYS 11/04 completed Not Available Not Available Not Available duloxetin e 60 mg capsule,d elayed release TAKE 1 CAP BY MOUTH EVERY DAY 11/04 completed Not Available Not Available Not Available Zofran 03/28 completed Not Available Not Available Not Available levothyro xine active Not Available Not Available Not Available hydroxyzi ne HCl active Not Available Not Available Not Available Benadryl 03/28 completed Not Available Not Available Not Available Topamax 03/28 completed Not Available Not Available Not Available duloxetin e active Not Available Not Available Not Available ID NOW COVID-19 Test Kit TEST DIRECTED 05/03 completed Not Available Not Available Not Available Vitals Date Recorded Body height Body mass index (BMI) Percentile per age and sex Body mass index (BMI) Body weight Systolic blood pressure Diastolic blood pressure Provider Name and Address Organization Details Last Updated DateTime 1 160.02 cm 68 % 23.2 kg/m2 88397.6 g 116 mm[Hg] 78 mm[Hg] [facility] 1 11:11:17 Date Recorded Body height Body mass index (BMI) Body mass index (BMI) Percentile per age and sex Body weight Systolic blood pressure Diastolic blood pressure Provider Name and Address Organization Details Last Updated DateTime 1 160.02 cm 24.1 kg/m2 75 % 15893.5 6 g 117 mm[Hg] 75 mm[Hg] [facility] 1 13:23:18 Date Recorded Body height Body mass index (BMI) Percentile per age and sex Body mass index (BMI) Body weight Systolic blood pressure Diastolic blood pressure Provider Name and Address Organization Details Last Updated DateTime 0 1950.72 cm 1 % 0.2 kg/m2 89862.8 9 g 108 mm[Hg] 69 mm[Hg] Rosmery Grimaldo [facility] 0 14:12:53 Date Recorded Body height Body mass index (BMI) Body weight Systolic blood pressure Diastolic blood pressure Provider Name and Address Organization Details Last Updated DateTime 11/04/2024 162.56 cm 29.9 kg/m2 62728.07 g 117 mm[Hg] 78 mm[Hg] ESTELA Simmons [facility] 17:01:13 Social History Question Answer Notes LastModified by Organizat ion Details LastModified Time Tobacco Smoking Status Never Smoker Rebekah dacosta, [facility] 03/28/2021 11:13:00 Are You Blind Or Do You Have Difficulty Seeing? No Information n ot available 03/28/2021 What Is Your Level Of Caffeine Consumption? Occasional Information not available 03/28/2021 In The 14 Days Before Symptom Onset, Have You Had Close Contact With A Laboratory-confirm ed COVID-19 While That Case Was Ill? No [email or web address] Information n ot available 11/04/2024 In The 14 Days Before Symptom Onset, Have You Had Close Contact With A Person Who Is Under Investigation For COVID-19 While That Person Was Ill? No [email or web address] Information not available 11/04/2024 Have You Been To An Area Known To Be High Risk For COVID-19? No [email or web address] Information not available 11/04/2024 Are You Deaf Or Do You Have Serious Difficulty Hearing? No Information not available 03/28/2021 What Type Of Diet Are You Following? REGULAR Information n ot available 03/28/2021 What Is The Highest Grade Or Level Of School You Have Completed Or The Highest Degree You Have Received? [id number] Information not available 11/04/2024 Are There Any Guns Present In Your Home? No [email or web address] Information not available 11/04/2024 Do You Use Your Seat Belt Or Car Seat Routinely? Yes Information not available 03/28/2021 Do You Have Smoke And Carbon Monoxide Detectors In Your Home? Yes Information not available 03/28/2021 Do You Use Sunscreen Routinely? Yes [email or web address] Information not available 11/04/2024 Do You Have Difficulty Walking Or Climbing Stairs? No [email or web address] Information not available 11/04/2024 Sex: Unknown Functional Status Question Answer Note LastModified by Organizat ion Details LastModified Time Do you use any illicit or recreational drugs? No Information not available 03/28/2021 What is your level of alcohol consumption? None Information not available 03/28/2021 Are you currently employed? No [email or web address] Information not available 11/04/2024 Are you able to walk? YESWOREST Information not available 03/28/2021 Are you able to care for yourself? Yes [email or web address] Information n ot available 11/04/2024 Do you have difficulty dressing or bathing? No Information not available 11/04/2024 What is your exercise level? Moderate Information not available 03/28/2021 Mental Status Question Answer Note LastModified by Organization D etails LastModified Time Do you feel stressed (tense, restless, nervous, or anxious, or unable to sleep at night)? [id number] Information not available 03/28/2021 Family History Relationship Description Onset Age of this Age Resolved Age Notes LastModified by Organization Details LastModified Time Maternal Grandmother Hypertensive disorder [email or web address] Not available 2019 11:39:57 Maternal Grandmother Diabetes mellitus [email or web address] Not available 2024 16:48:48 Maternal Grandmother Hypercholest erolemia [email or web address] Not available 2024 16:49:11 Paternal Grandfather Hypertensive disorder jgumber Not available 2019 11:39:57 Paternal Grandfather Disorder of thyroid gland [email or web address] Not available 2024 16:49:42 Father Hyperlipidem ia jgumber Not available 2019 11:40:10 Father Disorder of thyroid gland [email or web address] Not available 2024 16:49:28 Paternal Grandmother Disorder of thyroid gland [email or web address] Not available 2024 16:49:45 Medical History Condition Response Other Y Breast Cancer N Drug/Latex Allergies/Reactions N Blood Transfusion N Lung Disease N Breast Problem N Gestational Diabetes N Hematologic disorders N Anesthesia Complications N History of STI N Deep Vein Thrombosis N Polycystic ovary syndrome N Anxiety Disorder Y Arthritis N Infertility N History of abnormal pap N Acid Reflux (GERD) N Cancer N Stroke N Varicosities N Neurologic/Epilepsy N Endometriosis N High Cholesterol N Headaches N Fibromyalgia N Kidney Disease N Heart Problems N Kidney or Bladder Problems N Thyroid Problems Y GI Problems N Eating Disorder N Anemia N Art (IVF or FET) N Psychiatric Illness N Ovarian Cancer N Pulmonary (TB, Asthma) N Hepatitis/Liver Disease N No Past Medical History N Eczema N Urinary Tract Infection N Abuse/Domestic Violence N Trauma/Violence N Depression/ depression Y Heart Disease N Pre-Eclampsia N Hypertension N Osteoporosis N Thrombophilias N Gynecological History Statement/Question Response Abnormal Pap N Date of LMP Sexually Active? Y STIs/STDs N Date of Last Pap Smear Sexual Problems? N Current Control Method IUD 12 LMP Unknown Obstetrics History GPAL:G 0 P 0 0 0 0 Type Value Living 0 Total 0 Past Encounters Encounter ID Performer Location Encounter Start Date Encounter Closed Date Diagnosis/Indication Diagnosis SNOMED-CT Code Diagnosis ICD10 Code Diagnosis Note [id number] Jadyn Niño [facility] [address] [address] 03/03/2020 14:05:14 03/03/2020 14:59:39 Abnormal uterine bleeding 5927149814 9100 N93.9 Patient's exam is wnl & IUD appears in place. We agreed to monitor & if worsens or continues will call to schedule TVUS. Time spent in visit is a total of 15 mins with at least 50% of visit consisting of counseling and review of plan of care. [id number] [facility] [address] [address] 03/28/2021 10:35:47 03/28/2021 13:51:23 Gynecologic examination 36640984 Z01.419 Take Calcium with Vitamin D 1200mg daily if not receiving in daily diet. It is strongly advised to have an annual flu shot and up can obtain at most pharmacies . If you have not had a TDap shot in the last 10 years you should obtain one as well. Discussed with patient & provided with informatio n regarding Gardisil vaccine to prevent the 4 strains for HPV that cause cervical cancer. Encourage safe sexual practices, to use condoms and limit partners if not already in a monogamous relationsh ip. Do monthly self breast exams. BRCA testing is now available for patients with strong genetic history of female cancer. If interested contact the office. Engage in daily exercise of low impact aerobic exercise 45-60 minutes 4-5 times weekly. Avoid tobacco, illicit drugs, and alcohol. This lifestyle behavior pattern will lead to less health conditions and longer life span. If BMI greater than 25 weight watchers or dietary consult advised. Pap smear is not recommende d prior to the age of 21. If you have any concerns, pelvic, or vaginal problems we can discuss testing. Patient received above instructio ns, and questions have been answered. If you have any questions please call or respond to this email. Patient was made aware of the patient portal and may obtain a paper copy of today's plan if desired. Primary pap due age 23yoDeclin es std screeningI UD-libertad Straussena placed 06/24/2016 Check's her strings monthlyMir rosetta good x 6yrs but aware can have replaced at 7yr yvonne if prefers or if begins to start having cycles again. Understand ing verbalized .No other issues or concerns [id number] Jadyn Niño , [facility] [address] [address] 05/03/2021 12:53:39 05/03/2021 14:06:59 Screening procedure 37944356 Z13.9 Removal of intrauterine device 14869382 Z30.432 She states the symptoms are of new onset. Patient is here due to the approachin g due date or the nature of her IUD and wishes to have it removed. We discussed the timing of the replacemen t with the next bleed or the need to abstain if she no longer has regular cycles. She expressed understand ing. It was explained that she may have bleeding or spotting after the removal of the device today as well. If cannot see the strings of this device we will need to get an US image to make that the device is still in place and not in an unobtainab le position. She expressed understand ing of all the above instructio ns. Insertion of intrauterine contraceptive device 67292777 Z30.430 She has been counseled on all of the r/b/a of placement of an intrauteri ne device that include but are not limited to uterine perforatio n, injury to cervix, vagina, bladder, and bowel.Risk s of bleeding due to injury or increased irregular bleeding due to progestin effect of the device. Risks of infection would be increased within the first 21 days of placement with concommita nt cervicitis . She understand s that the device will need to be removed in this instance due to increased risk of Pelvic inflammato ry disease. Patient is aware she is at higher risk for STD and if contracted she could lose her fertility. Pt is aware that if occurs that she should contact office immediatel y to rule out ectopic which could be life threatenin g. IUD will also need to be removed and this could cause miscarriag e. Patient also informed that in the event her strings are absent or embedded at the time of removal she may need to have the IUD surgically removed. She was informed of the above and properly consented. IUD placed w/o complicati on. Patient should return to office after next period to check for string placement. Patient to expect irregular bleeding but should be seen in the ED if bleeding increases to soaking a pad an hour for at least 2 hours. She verbalized understand ing. [id number] ROSSANA Yoo [place] [address] [address] 11/04/2024 16:29:45 11/05/2024 13:31:50 Gynecologic examination [id number] Z01.419 Z11.3 Z11.8 WWEBC - Mirena IUD, inserted 05/03/2021 ap - done todaySTI screen - declinedRo utine labs - PCPRTC in 1 yr or sooner if needed It is strongly advised to have an annual flu shot and up can obtain at most pharmacies . If you have not had a TDap shot in the last 10 years you should obtain one as well. Discussed with patient & provided with informatio n regarding the HPV vaccine if applicable . Encourage safe sexual practices, to use condoms and limit partners if not already in a monogamous relationsh ip. Do monthly self breast exams. BRCA testing is now available for patients with strong genetic history of female cancer. If interested contact the office. Engage in regular exercise. Avoid tobacco and illicit drugs. This lifestyle behavior pattern will lead to less health conditions and longer life span. If BMI greater than 25 dietary consult advised. Questions answered. Health Concerns Section Related Observation LastModified by Organization Detai ls LastModified Time None Recorded Concern Status LastModified by Organization Details LastModified Time None Recorded Advance Directives Directive None Recorded Payers Encounter Date Sequence Insurance Name Policy Number Policy Frederick Covered Member ID Frederick Member ID Guarantor Name 03/28/2021 1 [employer] [id number] Glenroy Mac [id number] 05/03/2021 1 [place] [id number] Glenroy Mac [id number] 11/04/2024 1 [place] [id number] Glenroy Mac [id number] Notes Date Note Type Note Provider Name and Address Organization Details Recorded Time 03/03/2020 text/html Beer - Abnormal BleedingReported bypatient.Notes:Cris delaney is a 19yo white female here today with concerns of AUB with IUD. Spotting is brownish and random. She is not SA. She has no pain. Neg urinary sx's Neg Vag d/c, itching, odor. [facility] [address], [place], [address], [facility] 03/03/2020 14:43:52 03/28/2021 text/html Annual GYNReport ed bypatient.History:no gynecologic complaints Menstrual cycle:Amenorrheic on Mirena IUD placed 06/24/2016 Urinary symptoms:No hematuria; No incontinence Vulva:No genital lesion Vagina:Normal vaginal discharge Breast:No breast pain; No breast lump; No nipple discharge Current Contraception:Satisfi ed with current contraception; Monogamous relationship; Intrauterine device (iud) (Mirena Placed 06/24/2016) Sexual complaints:No sexual complaints; No pain during intercourse; Normal libido Menopausal Symptoms:No menopausal symptoms; Normal vaginal lubrication Psychological symptoms:No depression; No anxiety; No PMDD Preventive measures:Encourage self breast examination; Encourage regular exercise; Encourage no tobacco use; Encourage regular mammograms starting age 40 [facility] [address], [place], [address], [facility] 03/28/2021 11:26:32 05/03/2021 text/html Patient presents for IUD Removal/insertion. ROSSANA De León- [address], [place], [address], [facility] 05/03/2021 13:45:41 11/04/2024 text/html Annual GYNReport ed bypatient.Menstrual cycle:Normal menses Urinary symptoms:No hematuria; No incontinence Vulva:No genital lesion Vagina:Normal vaginal discharge Breast:No breast pain; No breast lump; No nipple discharge Current Contraception:Satisfi ed with current contraception; Intrauterine device (iud) Sexual complaints:No sexual complaints; No pain during intercourse; Normal libido Menopausal Symptoms:No menopausal symptoms; Normal vaginal lubrication Psychological symptoms:No depression; No anxiety; No PMDD Preventive measures:Encourage self breast examination; Encourage regular exercise; Encourage no tobacco use; Encourage regular mammograms starting age 40Notes:24yo WWEno pap hxBC - Mirena IUD, inserted 05/03/2021 ROSSANA Yoo [address], [place], [address], [facility] 11/05/2024 09:21:41 OBGyn Episode No OBEpisode recorded.
[2025-01-28 13:16] LABS: Cholesterol 196 mg/dL (0-200); HDL Direct 41 mg/dL; Triglycerides 143 mg/dL (<150)
[2025-01-28 13:27] LABS: LDL Cholesterol Direct 111 mg/dL
[2025-01-28 14:01] LABS: Thyroid Stimulating Hormone 0.768 uIU/mL (0.465-4.680)
[2025-01-28 14:25] LABS: Free T4 Free Thyroxine 1.36 ng/dL (0.78-2.19)
== END 2025-01-28 12:21 | disposition home or self-care (01) ==
LOC: ANHLAB 12:22
PROVIDERS: PCP Nurse Practitioner Family; Visit Provider Nurse Practitioner Family
DX: E03.9 Hypothyroidism, unspecified (principal); E78.5 Hyperlipidemia, unspecified
CPT/HCPCS: 36415; 80061; 84439; 84443

== ENCOUNTER 2025-07-13 16:22 | Outpatient (CLI) | payer BC, SELFPAY ==
[2025-07-13 17:56] LABS: Thyroid Stimulating Hormone Reflex 2.160 uIU/mL (0.465-4.68)
--- OUTSIDE RECORDS SUMMARY | 2025-07-14 15:10 | XMS_ITS | Clinical Summary ---
Author Organization [facility] Address [address] [place] [address] Care Team Providers Care Straddle Truck Operator Name Role Phone Machelle Hidalgo Terrance LIN-FIRE EQUIPMENT INSPECTOR HELPER Primary Care Provider Source Comments [facility],non-owned Affiliates and Associated Physician Practices is amultiple site organization consisting of ambulatory clinics and hospital sitesin [place], [place], [place] and [place]. This disclosure is being madepursuant to the Care Everywhere program and may not contain all information available regarding this patient. Last updated 18.[facility] Allergies No known active allergies Medications * [...] 07/21/2021 Assessment & Plan (07/27/2021 10:55 AM ORGANIZATIONAL PSYCHOLOGIST): Assessment: Shawnee Mosqueda is a 21 year [...] today Assessment & Plan (07/26/2021 11:46 AM ORGANIZATIONAL PSYCHOLOGIST): Assessment: Shawnee Mosqueda is a 21 year [...] ox Assessment & Plan (07/25/2021 1:49 PM ORGANIZATIONAL PSYCHOLOGIST): Assessment: Shawnee Mosqueda is a 21 year [...] ox Assessment & Plan (07/24/2021 5:26 PM ORGANIZATIONAL PSYCHOLOGIST): Assessment: Shawnee Mosqueda is a 21 year [...] ox Assessment & Plan (07/23/2021 5:12 PM ORGANIZATIONAL PSYCHOLOGIST): Assessment: Shawnee Mosqueda is a 21 year [...] ox Assessment & Plan (07/22/2021 3:21 PM ORGANIZATIONAL PSYCHOLOGIST): Assessment: Shawnee Mosqueda is a 21 year [...] EGD and US in 2018. Seen at [place] [facility] one day prior and had CT [...] ox Assessment & Plan (07/22/2021 1:19 AM ORGANIZATIONAL PSYCHOLOGIST): Assessment: Shawnee Mosqueda is a 21 year [...] EGD and US in 2018. Seen at [facility] [place] ED one day prior and had CT [...] loss. Plan: - Admit to General Medicine, [place] team Dr. Stafford - Clear liquid diet - mIVF D5NS 100 ml/hr - Pain management: - Toradol 30 mg q6 3 doses - Tylenol prn for mild/moderate pain - Dilaudid prn for sever pain - Consider GI consult and abdominal ultrasound imaging in AM - Obtain CT from [facility] [place] - Consider adolescent medicine and rheumatology consults [...] 07/28/2019 Assessment & Plan (08/02/2019 6:27 PM ORGANIZATIONAL PSYCHOLOGIST): Assessment: Janice Mosqueda is a 19 year old F admitted for fever is currently undergoing a workup for Castleman's vs Kikuchis vs malignancy. Plan: -see plan for fever Assessment & Plan (08/01/2019 9:05 AM ORGANIZATIONAL PSYCHOLOGIST): Assessment: Janice Mosqueda is a 19 year old F admitted for fever is currently undergoing a workup for Castleman's vs Kikuchis vs malignancy. Plan: -see plan for fever -biopsy FridayAug 02. Discharge after when stable. Assessment & Plan (07/31/2019 10:24 AM ORGANIZATIONAL PSYCHOLOGIST): Assessment: Janice Mosqueda is a 19 year old F admitted for fever is currently undergoing a workup for Castleman's vs Kikuchis vs malignancy. Plan: -see plan for fever Assessment & Plan (07/30/2019 11:46 AM ORGANIZATIONAL PSYCHOLOGIST): Assessment: Janice Mosqueda is a 19 year old F admitted for fever is currently undergoing a workup for Castleman's vs Kikuchis vs malignancy. Plan: -see plan for fever Irregular periods 07/14/2018 Weight loss 07/07/2018 Assessment & Plan (07/24/2021 5:05 PM ORGANIZATIONAL PSYCHOLOGIST): Assessment: Shawnee is a 21 yo with [...] 08/11/2019 Assessment & Plan (08/02/2019 6:27 PM ORGANIZATIONAL PSYCHOLOGIST): Assessment: Shawnee Mosqueda is a 19 year [...] 100.4 Assessment & Plan (08/01/2019 9:04 AM ORGANIZATIONAL PSYCHOLOGIST): Assessment: Shawnee Mosqueda is a 19 year [...] 101F Assessment & Plan (07/31/2019 10:24 AM ORGANIZATIONAL PSYCHOLOGIST): Assessment: Shawnee Mosqueda is a 19 year [...] 101F Assessment & Plan (07/30/2019 11:45 AM ORGANIZATIONAL PSYCHOLOGIST): Assessment: Shawnee Mosqueda is a 19 year [...] q4 Assessment & Plan (07/27/2019 7:56 PM ORGANIZATIONAL PSYCHOLOGIST): Assessment: Shawnee Mosqueda is a 19 year [...] 12/20/2013 Immunizations Immunization Administration Dates Next Due FORVM primary monoval ent 12+ yr 0.3mL Purple [...] on file Legal Sex Female 5:41 AM ORGANIZATIONAL PSYCHOLOGIST Gender Identity Not on file Sexual Orientation Not on file Last Filed Vital Signs Vital Sign Reading Time Taken Comments Blood Pressure 100/72 12/17/2022 2:30 PM CDT Pulse 65 10/05/2021 12:44 PM ORGANIZATIONAL PSYCHOLOGIST Temperature 36.9 C (98.4 F) 07/27/2021 12:30 PM ORGANIZATIONAL PSYCHOLOGIST Respiratory Rate 20 07/27/2021 12:30 PM ORGANIZATIONAL PSYCHOLOGIST Oxygen Saturation 99% 07/27/2021 12:30 PM ORGANIZATIONAL PSYCHOLOGIST Inhaled Oxygen Concentration 100% 07/23/2021 8 :15 AM ORGANIZATIONAL PSYCHOLOGIST Weight 65.5 kg (144 lb 6.4 oz) 12/17/2022 2:30 P M CDT Height 160.2 cm (5' 3.07) 12/17/2022 2:30 PM CD T Body Mass Index 25.52 12/17/2022 2:30 PM CDT Plan of Treatment Health Maintenance Due Date Last Done Comments MENINGOCOCCAL (Group B) VACC INE SHARED DECISION-MAKING (1 of 2 - Standard) 2018 HEPATITIS C SCREENING 06/15/2020 CHLAMYDIA/GONORRHEA SCREENING 07/21/2022, 07/28/2019, 07/06/2018 PAP SMEAR 2023 DTAP/TDAP/TD VACCINES (7 - T d or Tdap) 12/21/2023 12/20/2013, 08/04/2006, 12/27/2003, Additional history exists DEPRESSION SCREENING 09/08/2024 07/02/2022, 03/02/2020, 03/02/2020 COVID-19 VACCINE (3 - 2024-2 6 season) 2025 05/16/2021, 04/25/2021 INFLUENZA VACCINE (#1) 2025 , 06/06/2020, 07/12/2019, Additional history exists ZOSTER VACCINE [...] track( 020 2:19 PM CDT) Sonia Purvis, gas dispenser Procedure Name Priority Date/Time Associated Diagnosis Comments CHLAMYDIA + GC AMPLIFIED PROBE STAT 07/21/2021 10:58 PM ORGANIZATIONAL PSYCHOLOGIST HIV-1 HIV-2 ANTIBODY + HIV P24 AG PANEL Routine 07/28/2019 5:51 PM ORGANIZATIONAL PSYCHOLOGIST from Last 3 Months or Most Recently Relevant to Health Maintenance Results * CHLAMYDIA + GC AMPLIFIED PROBE (STL) (07/21/2021 10:58 PM ORGANIZATIONAL PSYCHOLOGIST) Pathologist [facility] Chlamydia Amplified Probe Negative Negative 07/22/2021 10:04 AM ORGANIZATIONAL PSYCHOLOGIST [facility] GC Amplified Probe Negative Negative 07/22/2021 10:04 AM ORGANIZATIONAL PSYCHOLOGIST [facility] Microbiology URINE / Unknown Collection / Unknown 07/21/2021 10:58 PM ORGANIZATIONAL PSYCHOLOGIST 07/22/2021 1:13 AM ORGANIZATIONAL PSYCHOLOGIST Narrative [facility] - 07/22/2021 10:04 AM ORGANIZATIONAL PSYCHOLOGIST Results based on detection/no detection of ribosomal RNA by amplified method. us Radha Solorio MD LAB - MICROBIOLOGY ORDERABLE S Final Result [facility] [address] [place] [address], [facility] [phone] * HIV-1 HIV-2 ANTIBODY + HIV P24 AG PANEL (07/28/2019 5:51 PM ORGANIZATIONAL PSYCHOLOGIST) Pathologist [facility] HIV1/2 Ab + P24 Ag Non Reactive Non Reactive 07/28/2019 7:06 PM ORGANIZATIONAL PSYCHOLOGIST [facility] Blood BLOOD SPECIMEN / Unknown Lab Venipuncture / Unknown 07/28/2019 5:51 PM ORGANIZATIONAL PSYCHOLOGIST 07/28/2019 6:22 PM ORGANIZATIONAL PSYCHOLOGIST Narrative [facility] - 07/28/2019 7:06 PM ORGANIZATIONAL PSYCHOLOGIST No Laboratory evidence of HIV infection. us Navarro Dorsey MD LAB - CHEMISTRY ORDERABL ES Final Result [facility] [place] [address] from Last 3 Months or Most Recently Relevant to Health Maintenance Insurance [employer] Advance Directives * Full Code (Latest Code Status on File) Date Activated Date Inactivated Comments 07/21/2021 11:21 PM 07/27/2021 3:06 PM * Full Code Date Activated Date Inactivated Comments 07/28/2019 1:04 AM 08/03/2019 1:24 PM Care Teams Straddle Truck Operator Relationship Specialty Start Date End Date Machelle Hidalgo, BUILDING COORDINATOR-FIRE EQUIPMENT INSPECTOR HELPER [address] [place] [address] PCP - General Nurse Practitioner Family 01/02/22
--- OUTSIDE RECORDS SUMMARY | 2025-07-14 15:10 | XMS_ITS | Clinical Summary ---
Author Organization [facility] Address [address] [place] [id number] Care Team Providers Care Publicity Expert Name Role Phone Unavailable Primary Care Provider [...] - 19+ 3-dose series) 2021 COVID-19 Vaccine (1 - 2024-2 6 season) 2025 Influenza Adult (#1) 2025 Hepatitis A Vaccines Aged Out No long er eligible based on patient's age to complete this topic Meningococcal Vaccine Aged Out No dania janet eligible based on patient's age to complete this topic Pneumococcal Vaccine: Pediat rics (0 to 5 Years) and At-Risk Patients (6 to 49 Years) Aged Out No longer eligible b ased on patient's age to complete this topic RSV Immunizations Under 20 Months Aged Out No longer eligible based on patient's age to complete this topic
--- OUTSIDE RECORDS SUMMARY | 2025-07-14 15:10 | XMS_ITS | Data Portability ---
Author Organization [facility] Address [address] [place] [address] [place] [address] Assessment Encounter Date Assessment Date Assessment LastModified by Organization Details LastModified Time 03/28/2021 03/28/2021 Annual gynecological exam performed. Patient will come back in a year unless there are new symptoms. Not available 03/28/2021 11:02:08 11/04/2024 11/04/2024 Annual gynecological exam performed. Patient will come back in a year unless there are new symptoms. [email or web address] Not available 11/04/2024 17:00:08 Plan of Treatment Reminders Order Date Submit Date Provider Last Modified By Organization Details Last Modified Time Details Appointments None recorded. Lab test, urine 2020 021 [address], [address], [place], [address], 13:26:08 Referral None recorded. Procedures None recorded. Surgeries None recorded. Imaging None recorded. Medication Orders None recorded. Patient TargetsNo targets recorded. Patient InstructionsNo instructions recorded. Reason for Referral None Reported. Results Created Date Observation Date Name Description Value Unit Range Abnormal Flag Note LastModifiedBy Organization Detail LastModifiedTime 05/03/2005/03/2021 pregn maged test, urine HCG negati ve Not Available [facility] [address], [place], [address], 05/03/2021 13:25:52 11/04/19 25 11/04/2024 IMAGE GUIDE D PAP, REFLE X HPV IF ASCUS ONLY image guided Pap, reflex HPV ASCUS only SEE RESULT S BELOW CASE REPOR T: Cytol ogy Gynec ologi sandy Repor t Case: [id number] Autho romario wallis Provi katt: Marah Davidson, MATI Monte cted: 11/04 1648 Order ing Locat ion: [place] [facility] Recei sachi: 11/05 0951 First Tom n: Chris Garcia, CT Speci men: Tom [...] Chris Garcia, CT on 025 at 0948 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 Not Available [facility] (Lab) [address], [place], [address], 11/09/2024 10:53:20 11/04/19 25 11/04/2024 TRICH OMONA S VAGIN KAY (RRNA ) trichomonas vaginalis ribosomal RNA (rrna) Negati ve negati ve Not Available [facility] (Lab) [address] [place], [address], 11/09/2024 10:53:20 11/04/19 25 11/04/2024 CT/GC (OLYA) , THINP REP VIAL chlamydia trachomatis, PCR Negati ve negati ve Not Available [facility] (Lab) [address] [place], [address], 11/09/2024 10:53:21 11/04/19 25 11/04/2024 CT/GC (OLYA) , THINP REP VIAL neisseria gonorrhoeae, PCR Negati ve negati ve Not Available [facility] (Lab) [address] [place], [address], 11/09/2024 10:53:21 Result Notes None recorded. Problems Name Problem SNOMED Code Status Onset Date Resolution Date Notes Provider Name and Address Organization Details Recorded Time Finding of pattern of menstrua l cycle Completed 201503/28/2021 Other specified irregular menstruat ion;Recor ded Elsewhere : No Locati on: [facility] So urce: EHR Chron ic: N Practic e ID: 0001 Bill able Time: 03:00:00 PM [facility] 1 11:12:05 Clinical finding Completed 201503/28/2021 Presence of (intraute rine) contracep tive device;Re corded Elsewhere : No Locati on: [facility] So urce: EHR Chron ic: N Practic e ID: 0001 Bill able Time: 12:45:00 PM [facility] 1 11:12:04 Insertio n of intraute rine contrace ptive device Completed 201503/28/2021 Encounter for insertion of intrauter ine contracep tive device;Re corded Elsewhere : No Locati on: [facility] So urce: EHR Chron ic: N Practic e ID: 0001 Bill able Time: 12:45:00 PM [facility] 1 11:12:08 Surveill ance of contrace ption Completed 201503/28/2021 Encounter for surveilla nce of contracep tives, unspecifi ed;Record ed Elsewhere : No Locati on: [facility] So urce: EHR Chron ic: N Practic e ID: 0001 Bill able Time: 03:45:00 PM [facility] 1 11:12:[address] Concept Completed 201703/28/2021 Encntr for routine child health exam w/o abnormal findings; Recorded Elsewhere : No Locati on: [facility] So urce: EHR Chron ic: N Practic e ID: 0001 Bill able Time: 03:30:00 PM Rebekah Colon null, [facility] 11:12:[address] Concept Completed 201703/28/2021 Well woman check w/o abnormal finding;R ecorded Elsewhere : No Locati on: [facility] So urce: EHR Chron ic: N Practic e ID: 0001 Bill able Time: 03:30:00 PM Rebekah dacosta [facility] 11:12:13 Finding of pattern of menstrua l cycle Completed 201703/28/2021 Excessive and frequent menstruat ion with irregular cycle;Pra ctice ID: 0001 Rebekah dacosta [facility] 11:12:07 Pregnanc y test negative [id number] Completed 201703/28/2021 Encounter for test, result negative; Practice ID: 0001 Rebekah dacosta [facility] 11:12:10 Problem Notes None recorded. Procedures Surgical History Date Name Laterality Status Provider Name and Address Organization Details Recorded Time IUD Removal completed Jadyn Niño [facility] [address], [place], [address], [facility] 05/03/2021 13:43:11 IUD Insertion completed Jadyn Niño [facility] [address], [place], [address], [facility] 05/03/2021 13:45:36 nasal cautery completed Joana Chaudhary [facility] 03/01/2020 11:39:28 biopsy of neck completed ESTELA Simmons [facility] 11/04/2024 16:46:18 Imaging Results None recorded. [...] Prescrib ed Elsewher e: No [facility]at [facility] By: selam Irizarry ncounter DateTime : [...] ed Elsewher e: Yes Loca tion: [facility] odify By: selam Irizarry ncounter DateTime : [...] Prescrib ed Elsewher e: Yes Loca tion: [facility] odify By: selam jimenez DateTime : 06/11/20 16 02:45:00 PM Not Available Not Available Not Available Metrogel Vaginal 0.75 % (37.5 mg/5 gram) insert 1 applicat orful by vaginal route for 5 nights at bedtime 03/28 completed Prescrib ed Elsewher e: No Locat ion: [facility] odify By: john jimenez DateTime : [...] Elsewher e: Yes Loca tion: [facility] odify By: selam jimenez DateTime : 06/11/20 16 02:45:00 PM Not Available Not Available Not Available oxycodone 5 mg tablet 03/28 completed Not Available Not Available Not Available Benadryl 25 mg capsule take 2 capsule by oral route every 4 - 6 hours as needed 11/04 completed Prescrib ed Elsewher e: Yes Loca tion: [facility] odify By: lsloan E ncounter DateTime [...] Body mass index (BMI) Body weight Systolic And Diastolic Provider Name and Address Organization Details Last Updated DateTime 11/04/2024 162.56 cm 29.9 kg/m2 20222.07 g 117/78 mm[Hg] ESTELA Simmons [facility] 11/04/2024 17:01:13 Date Recorded Body height Body mass index (BMI) [Percentile] Per age and sex Body mass index (BMI) Body weight Systolic And Diastolic Provider Name and Address Organization Details Last Updated DateTime 03/03/2020 1950.72 cm 1 % 0.2 kg/m2 63529.8 9 g 108/69 mm[Hg] Rosmery Grimaldo [facility] 0 14:12:53 Date Recorded Body height Body mass index (BMI) [Percentile] Per age and sex Body mass index (BMI) Body weight Systolic And Diastolic Provider Name and Address Organization Details Last Updated DateTime 03/28/2021 160.02 cm 68 % 23.2 kg/m2 74652.6 g 116/78 mm[Hg] Rebekah Colon [facility] 1 11:11:17 Date Recorded Body height Body mass index (BMI) Body mass index (BMI) [Percentile] Per age and sex Body weight Systolic And Diastolic Provider Name and Address Organization Details Last Updated DateTime 05/03/2021 160.02 cm 24.1 kg/m2 75 % 30831.5 6 g 117/75 mm[Hg] Rebekah Colon [facility] 13:23:18 Social History Question Answer Notes LastModified by Organizat ion Details LastModified Time Tobacco Smoking Status Never Smoker Rebekah Colon [facility], [facility] 03/28/2021 11:13:00 Are You Blind Or Do You Have Difficulty Seeing? No Information n ot available 03/28/2021 What Is Your Level Of Caffeine Consumption? Occasional Information not available 03/28/2021 In The 14 Days Before Symptom Onset, Have You Had Close Contact With A Laboratory-confirm ed COVID-19 While That Case Was Ill? No Information n ot available 11/04/2024 In The 14 Days Before Symptom Onset, Have You Had Close Contact With A Person Who Is Under Investigation For COVID-19 While That Person Was Ill? No [email or web address] Information not available 11/04/2024 Have You Been To An Area Known To Be High Risk For COVID-19? No [email or web address] Information not available 11/04/2024 Are You Deaf Or Do You Have Serious Difficulty Hearing? No Information not available 03/28/2021 What Type Of Diet Are You Following? REGULAR Information n ot available 03/28/2021 What Is The Highest Grade Or Level Of School You Have Completed Or The Highest Degree You Have Received? [id number] [email or web address] Information not available 11/04/2024 Are There Any Guns Present In Your Home? No [email or web address] Information not available 11/04/2024 Do You Use Your Seat Belt Or Car Seat Routinely? Yes Information not available 03/28/2021 Do You Have Smoke And Carbon Monoxide Detectors In Your Home? Yes Information not available 03/28/2021 Do You Use Sunscreen Routinely? Yes [email or web address] Information not available 11/04/2024 Do You Have Difficulty Walking Or Climbing Stairs? No [email or web address] Information not available 11/04/2024 Sex: Unknown Functional Status Question Answer Note LastModified by Organizat ion Details LastModified Time Do you use any illicit or recreational drugs? No Information not available 03/28/2021 What is your level of alcohol consumption? None Information not available 03/28/2021 Are you currently employed? No [email or web address] Information not available 11/04/2024 Are you able to walk independently without assistance or assistive devices? YESWOREST Information not available 03/28/2021 Are you able to care for yourself independently? Yes [email or web address] Information not available 11/04/2024 Do you have difficulty dressing, bathing, grooming, or toileting? No [email or web address] Information not available 11/04/2024 What is your exercise level? Moderate Information not available 03/28/2021 Mental Status Question Answer Note LastModified by Organization D etails LastModified Time Do you feel stressed (tense, restless, nervous, or anxious, or unable to sleep at night)? [id number] Information not available 03/28/2021 Family History Relationship Description Onset Age of this Age Resolved Age Notes LastModified by Organization Details LastModified Time Maternal Grandmother Hypertensive disorder [email or web address] Not available 2019 11:39:57 Maternal Grandmother Diabetes mellitus [email or web address] Not available 2024 16:48:48 Maternal Grandmother Hypercholest erolemia [email or web address] Not available 2024 16:49:11 Paternal Grandfather Hypertensive disorder jgumber Not available 2019 11:39:57 Paternal Grandfather Disorder of thyroid gland Not available 2024 16:49:42 Father Hyperlipidem ia jgumber Not available 2019 11:40:10 Father Disorder of thyroid gland [email or web address] Not available 2024 16:49:28 Paternal Grandmother Disorder of thyroid gland [email or web address] Not available 2024 16:49:45 Medical History Condition [...] Diagnosis SNOMED-CT Code Diagnosis ICD10 Code Diagnosis IMO Codes Diagnosis Note [id number] Jadyn Niño [facility] [address] [address] 03/03/2020 14:05:14 03/03/2020 14:59:39 Abnormal uterine bleeding [id number] 9100 N93.9 Patient's exam is wnl & IUD appears in place. We agreed to monitor & if worsens or continues will call to schedule TVUS. Time spent in visit is a total of 15 mins with at least 50% of visit consisting of counseling and review of plan of care. [id number] [facility] [address] [address] 03/28/2021 10:35:47 03/28/2021 13:51:23 Gynecologic examination 67109202 Z01.419 Take Calcium with Vitamin D 1200mg [...] ing verbalized .No other issues or concerns [id number] Jadyn Niño [facility] [address] [address] 05/03/2021 12:53:39 05/03/2021 14:06:59 Screening procedure 33619291 Z13.9 Removal of intrauterine device 48483436 Z30.432 She states the symptoms are of [...] instructio ns. Insertion of intrauterine contraceptive device 50657024 Z30.430 She has been counseled on all [...] least 2 hours. She verbalized understand ing. [id number] ROSSANA Yoo [facility] [address] [address] 11/04/2024 16:29:45 11/05/2024 13:31:50 Gynecologic examination 94253451 Z01.419 Z11.3 Z11.8 WWEBC - Mirena IUD, [...] Recorded Advance Directives Directive None Recorded Payers Insurance Date Sequence Insurance Name Policy Number Policy Frederick Covered Member ID Frederick Member ID Guarantor Name 11/02/2024 1 [facility] [id number] Glenroy Mac [id number] Notes Date Note Type Note Provider Name and Address Organization Details Recorded Time 03/03/20 20 text/ht ml Beer - Abnormal BleedingReported by PatientPatient is a 19yo white female here today with concerns of AUB with IUD. Spotting is brownish and random. She is not SA. She has no pain. Neg urinary sx's Neg Vag d/c, itching, odor.ROS as noted in the HPI Jadyn Niño [facility] [address], [place], [address], [facility] 03/03/2020 14:43:52 03/28/20 21 text/ht ml Annual GYNReported by PatientHistoryFor history, patient reportsno gynecologic complaints.Genitourinary symptomsFor urinary symptoms, patient reportsno hematuriaandno incontinence. For vulva, patient reportsno genital lesion. For vagina, patient reportsnormal vaginal discharge. For menstrual cycle, (amenorrheic on mirena iud placed 06/24/2016).Breast symptomsFor breast, patient reportsno breast pain,no breast lump, andno nipple discharge.ContraceptionFor current contraception, patient reportssatisfied with current contraceptionandintrauterine device (iud) (mirena placed 06/24/2016).Endocrine symptomsFor sexual complaints, patient reportsno sexual complaints,no pain during intercourse, andnormal libido. For menopausal symptoms, patient reportsno menopausal symptomsandnormal vaginal lubrication.Psychological symptomsFor psychological symptoms, patient reportsno depression,no anxiety, andno pmdd.Preventative measuresFor preventive measures, patient reportsencourage self breast examination,encourage regular exercise,encourage no tobacco use, andencourage regular mammograms starting age 40. Jadyn Niño [facility] [address], [place], [address], [facility] 03/28/2021 11:26:32 05/03/20 21 text/ht ml ROS as noted in the HPI Patient presents for IUD Removal/insertion. ROSSANA De León- [address], [place], [address], [facility] 05/03/2021 13:45:41 11/04/19 25 text/ht ml Annual GYNReported by PatientGenitourinary symptomsFor menstrual cycle, patient reportsnormal menses. For urinary symptoms, patient reportsno hematuriaandno incontinence. For vulva, patient reportsno genital lesion. For vagina, patient reportsnormal vaginal discharge.Breast symptomsFor breast, patient reportsno breast pain,no breast lump, andno nipple discharge.ContraceptionFor current contraception, patient reportssatisfied with current contraceptionandintrauterine device (iud).Endocrine symptomsFor sexual complaints, patient reportsno sexual complaints,no pain during intercourse, andnormal libido. For menopausal symptoms, patient reportsno menopausal symptomsandnormal vaginal lubrication.Psychological symptomsFor psychological symptoms, patient reportsno depression,no anxiety, andno pmdd.Preventative measuresFor preventive measures, patient reportsencourage self breast examination,encourage regular exercise,encourage no tobacco use, andencourage regular mammograms starting age 40.24yo WWEno pap hxBC - Mirena IUD, inserted 05/03/2021 ROSSANA Yoo [address], [place], [address], [facility] 11/05/2024 09:21:41 OBGyn Episode No OBEpisode recorded.
== END 2025-07-13 16:23 | disposition home or self-care (01) ==
LOC: ANHLAB 16:24
PROVIDERS: PCP Nurse Practitioner Family; Visit Provider Nurse Practitioner Family
DX: Z13.29 Encounter for screening for other suspected endocrine disorder (principal); E03.9 Hypothyroidism, unspecified
CPT/HCPCS: 36415; 84443